=== PATIENT | female | born 1965 | race Caucasian/White ===

== ENCOUNTER 2019-08-22 19:59 | Emergency (ER) | payer BC, SELFPAY ==
--- NOTE | ~2019-08-22 | XR_ITS ---
EXAMINATION: XR chest 1V portable EXAM DATE: 08/22/2019 20:58 INDICATION: Shortness of breath, nonproductive cough. Headache for 3 days. History asthma. TECHNIQUE: Portable AP frontal chest x-ray was obtained. There is no prior study for comparison. FINDINGS: The lungs are clear. There are no pleural effusions. Cardiac silhouette is prominent but magnified on this AP technique. There is no pneumothorax suspected. The bones and soft tissues are unremarkable. IMPRESSION: No acute cardiopulmonary findings. Reviewed, dictated and finalized at location A.
[2019-08-22 20:18] VITALS: BP 158/98; PULSE 95; RESP 20; TEMP 36.8; O2SAT 98
--- NOTE | 2019-08-22 20:31 | ED.SOB ---
HPI - SOB/Dyspnea General Chief Complaint: Shortness of Breath/Dyspnea Stated Complaint: sob Time Seen by Provider: 08/22/19 20:09 History of Present Illness HPI Narrative: 53 yo female w/ h/o asthma presents c/o shortness of breath. She reports that she has had a cough for the past 4 days. This progressed to involve dyspnea, pleuritic chest pain, and a temperature elevation up to 100. She was started on antibiotics and steroids yesterday. She had COVID testing done, but not resulted yet. She had a sick coworker last week, they were not tested. Related Data Home Medications Medication Instructions Recorded Confirmed Topamax 300 BID 04/26/19 atorvastatin [Lipitor] 10 mg PO DAILY 04/26/19 04/26/19 montelukast [Singulair] 10 mg PO DAILY 04/26/19 04/26/19 albuterol sulfate [Ventolin HFA] 1 inh INHALATION QID PRN 08/22/19 primidone 100 mg PO HS 08/22/19 Allergies Allergy/AdvReac Type Severity Reaction Status Date / Time Sulfa (Sulfonamide Allergy Severe Anaphylaxis Verified 08/22/19 21:14 Antibiotics) SKIN GLUE Allergy Intermediate BLISTERS Uncoded 08/22/19 21:14 Review of Systems Review of Systems: All systems reviewed & are unremarkable except as noted in HPI and below Constitutional: Constitutional: Reports fever(s) and Reports weakness ENT: Denies sore throat Cardiovascular: Cardiovascular: Reports chest pain Respiratory: Respiratory: Reports chest congestion, Reports cough and Reports dyspnea Gastrointestinal: Gastrointestinal: Reports nausea Genitourinary: Genitourinary: Denies dysuria Neurologic: Reports headache(s) PMFSH Past Medical History Medical History (Updated 08/23/19 @ 00:11 by Tony Duncan MD) Asthma Family History Family History Father Patient's father is Social History Social History Smoking status: Never smoker Alcohol intake: current Exam Const: General: no acute distress, alert and ill appearing acutely Nutritional Appearance: well nourished Orientation/consciousness: patient oriented x3 HENMT: Head: normal to inspection Chest: Chest palpation & inspection: normal inspection of the chest Resp: Effort & Inspection: normal respiratory effort Auscultation: clear to auscultation bilaterally Cardio: Rate: regular rate Rhythm: regular rhythm GI: GI Palp: Yes Soft to palpation and No Tenderness to palpation present (GI) Skin: General skin exam: normal color Neuro: General: patient oriented x3, moves all extremities and CN's II-XI intact bilaterally Speech: normal speech Extrem: General: normal to inspection Course Vital Signs Vital signs: Vital Signs Temperature 36.8 C 08/22/19 20:18 Pulse Rate 95 08/22/19 20:18 Respiratory Rate 20 08/22/19 20:18 Blood Pressure 158/98 H 08/22/19 20:18 Pulse Oximetry 98 08/22/19 20:18 Temperature 36.8 C 08/22/19 20:18 Pulse Rate 72 08/22/19 22:24 Respiratory Rate 20 08/22/19 22:24 Blood Pressure 119/89 08/22/19 22:24 Pulse Oximetry 98 08/22/19 22:24 MDM - SOB/Dyspnea MDM Narrative Medical decision making narrative: Chest x-ray negative. D-dimer, LDH, and CRP normal. Vitalsigns reassuring. Pain improved with toradol. COVID testing already in progress. I will discharge her to continue self quarantine. Medical Records Attestation: I reviewed the patient's medical records. Lab Data Attestation: I reviewed the patient's lab results. Result diagrams: 08/22/19 21:08 08/22/19 21:08 Labs: Lab Results 08/22/19 08/22/19 08/22/19 Range/Units 21:07 21:08 21:08 WBC 7.0 (4.5-10.0) K/mm3 RBC 4.26 (4.2-5.4) M/mm3 Hgb 12.7 (12.0-15.0) g/dL Hct 39.1 (37.0-47.0) % MCV 91.8 (80-100) fl MCH 29.8 (26-34) pg MCHC 32.5 (32-36) g/dl RDW 13.8 (11.5-14.5) % Plt Count 266 (150-375)
--- NOTE | 2019-08-22 20:44 | ECG_ITS ---
Measurements Intervals [place] Rate: 90 P: 50 MT: 147 QRS: 35 QRSD: 101 T: 72 QT: 317 QTc: 389 Interpretive Statements SINUS RHYTHM BASELINE ARTIFACT- I, II, III, AVR, AVL, AVF NORMAL ECG Electronically Signed On 08-23-2019 7:16:11 CDT by Agustin Gutierrez D.O.
[2019-08-22 21:11] VITALS: PULSE 93
[2019-08-22 21:12] VITALS: O2SAT 99
[2019-08-22 21:14] LABS: Basophils Absolute Auto 0.1 K/mm3 (0.0-0.1); Basophils Percent Auto 0.7 % (0.2-1.2); Eosinophils Absolute Auto 0.2 K/mm3 (0-0.3); Eosinophils Percent Auto 2.6 % (0-4.4); Hematocrit 39.1 % (37.0-47.0); Hemoglobin 12.7 g/dL (12.0-15.0); Immature Granulocyte Absolute 0.02 K/mm3 (0.00-0.031); Immature Granulocyte Percent A 0.3 % (0-0.5); Lymphocytes Absolute Auto 2.33 K/mm3 (0.9-3.2); Lymphocytes Percent Auto 33.1 % (18.3-44.2); Mean Corpuscular HGB Conc 32.5 g/dl (32-36); Mean Corpuscular Hemoglobin 29.8 pg (26-34); Mean Corpuscular Volume 91.8 fl (80-100); Mean Platelet Volume 9.5 fl (7.4-10.4); Monocytes Absolute Auto 0.5 K/mm3 (0.1-0.6); Neutrophils Percent Auto 56.3 % (45.5-73.1); Platelet Count Result 266 k/mm3 (150-375); Red Blood Count 4.26 M/mm3 (4.2-5.4); Red Cell Distribution Width 13.8 % (11.5-14.5)
[2019-08-22 21:24] LABS: Lactic Acid Reflex 1.5 mmol/L (0.7-2.1)
[2019-08-22 21:24] LABS: INR 0.9; Prothrombin Time 11.9 Seconds (11.1-14.7)
[2019-08-22 21:28] LABS: Alanine Aminotransferase 21 U/L (4-35); Albumin Level 4.2 g/dL (3.5-5.1); Alkaline Phosphatase 53 U/L (38-126); Aspartate Amino Transferase 21 U/L (14-36); Bilirubin,Total 0.2 mg/dL (0.2-1.3); Blood Urea Nitrogen 13 mg/dL (7-17); CRP < 0.5 mg/dL (<1.0); Calcium 8.9 mg/dL (8.4-10.2); Carbon Dioxide 20 mmol/L (22-30); Chloride 110 mmol/L (98-107); Estimated Glomerular Filt Rate > 60; Glucose 111 mg/dL (65-105); Lactate Dehydrogenase 319 U/L (313-618); Potassium 3.4 mmol/L (3.4-5.0); Sodium 138 mmol/L (137-145)
[2019-08-22 21:39] VITALS: BP 116/82; PULSE 79; RESP 16; O2SAT 97
[2019-08-22] MEDS: KETOROLAC 30 MG/ML VIAL (*BKC) IV PUSH (21:41)
[2019-08-22] MEDS: ONDANSETRON INJ 4 MG/2 ML VIAL IV PUSH (21:42)
[2019-08-22 21:46] LABS: D Dimer 0.27 ug/mL (<0.48)
[2019-08-22 22:24] VITALS: BP 119/89; PULSE 72; RESP 20; O2SAT 98
== END 2019-08-22 22:37 | disposition home or self-care (01) ==
PROVIDERS: Emergency Provider Emergency Medicine; PCP Emergency Medicine
DX: J20.9 Acute bronchitis, unspecified (principal)
CPT/HCPCS: 36415; 71045; 80053; 83605; 83615; 85025; 85380; 85610; 85730; 86140; 87040; 87804; 93005; 96374; 96375; 99284; J1885; J2405

== ENCOUNTER → 2020-06-12 14:26 | Outpatient (CLI) | payer BC, SELFPAY ==
--- NOTE | ~2020-06-12 | MR_ITS ---
EXAMINATION: MR cervical spine wo con DATE: 06/12/2020 15:18 INDICATION: Right-sided cervical radiculopathy. Neck pain. Right arm pain. TECHNIQUE: Magnetic resonance imaging (MRI) of the cervical spine was performed without intravenous c ontrast. Sequences included sagittal T2-weighted FSE, sagittal STIR FSE, sagittal T1-weighted FSE, ax ial MERGE, and axial T2-weighted FSE. COMPARISON: Cervical spine MRI 06/23/2018 FINDINGS: There is hypolordosis of cervical spine. Vertebral body heights and intervertebral disc hei ghts are normal. The spinal cord signal intensity is normal. The following disc levels are specifical ly discussed: C2-C3: The disc does not extend beyond the endplate margin. There is no uncovertebral joint osteoarth ritis. There is mild bilateral facet joint osteoarthritis. There is no neural foraminal stenosis. The re is no central canal stenosis. C3-C4: The disc does not extend beyond the endplate margin. There is no uncovertebral joint osteoarth ritis. There is mild right and moderate left facet joint osteoarthritis. There is mild left neural fo raminal stenosis. There is no central canal stenosis. C4-C5: The disc does not extend beyond the endplate margin. There is no uncovertebral joint osteoarth ritis. There is no facet joint osteoarthritis. There is no neural foraminal stenosis. There is no roberto carlos tral canal stenosis. C5-C6: There is a central protrusion. There is no uncovertebral joint osteoarthritis. There is mild b ilateral facet joint osteoarthritis. There is no neural foraminal stenosis. There is mild central can al stenosis. C6-C7: The disc is bulging. There is mild bilateral uncovertebral joint osteoarthritis. There is no f acet joint osteoarthritis. There is mild left neural foraminal stenosis. There is mild central canal stenosis. C7-T1: The disc does not extend beyond the endplate margin. There is no uncovertebral joint osteoarth ritis. There is mild bilateral facet joint osteoarthritis. There is no neural foraminal stenosis. The re is no central canal stenosis. IMPRESSION: 1. Mild cervical spondylosis, stable from 06/23/2018. Reviewed, dictated and finalized at location A. E REPAIRMAN
== END ==
PROVIDERS: PCP Emergency Medicine
DX: M25.511 Pain in right shoulder (principal); M47.22 Other spondylosis with radiculopathy, cervical region
CPT/HCPCS: 72141

== ENCOUNTER → 2020-07-10 09:42 | Outpatient (CLI) | payer BC, SELFPAY ==
--- NOTE | ~2020-07-10 | MR_ITS ---
EXAMINATION: MR shoulder RT wo con DATE: 07/10/2020 10:23 INDICATION: Right shoulder pain. TECHNIQUE: Magnetic resonance imaging (MRI) of the right shoulder was performed without intravenous c ontrast. Sequences included axial PD-weighted FS FSE, coronal oblique PD-weighted FS FSE and T2-weigh marty FS FSE, and sagittal oblique T2-weighted FS FSE and T1-weighted FSE. COMPARISON: None. FINDINGS: Coracoacromial arch: The acromion undersurface is curved in morphology (type II). There is mild acromioclavicular joint os teoarthritis. There is mild subacromial/subdeltoid bursitis. Rotator cuff: There is moderate supraspinatus and infraspinatus tendinopathy. There is severe teres minor tendinopa thy. There is moderate subscapularis tendinopathy. No tear. There is no asymmetric fatty atrophy of t he rotator cuff muscle bellies. Biceps tendon and glenoid labrum: Biceps tendon is in bicipital groove. There is mild intra-articular biceps tendinopathy. Glenoid labr um is normal. Fluid: There is no glenohumeral joint effusion. Bones/cartilage: There is cartilage surface irregularity of glenoid and humeral head. IMPRESSION: 1. Severe rotator cuff tendinopathy. No tear. 2. Mild glenohumeral joint chondrosis. 3. Mild intra-articular biceps tendinopathy. 4. Mild acromioclavicular joint osteoarthritis. 5. Mild subacromial/subdeltoid bursitis. Reviewed, dictated and finalized at location A. OTION SPECIALIST
== END ==
PROVIDERS: PCP Emergency Medicine
DX: M19.011 Primary osteoarthritis, right shoulder (principal); M75.51 Bursitis of right shoulder
CPT/HCPCS: 73221

== ENCOUNTER → 2020-08-19 03:21 | Outpatient (CLI) | payer BC, SELFPAY ==
[2020-08-19 20:31] LABS: SARS-CoV-2 RNA PCR Negative
== END ==
PROVIDERS: PCP Emergency Medicine; Visit Provider Internal Medicine Gastroenterology
DX: Z01.812 Encounter for preprocedural laboratory examination (principal); Z20.822 Contact with and (suspected) exposure to COVID-19
CPT/HCPCS: C9803; U0003; U0005

== ENCOUNTER 2020-08-22 01:03 | Day surgery (SDC) | payer BC, SELFPAY ==
[2020-08-13 11:47] VITALS: BMI 27.2
[2020-08-22 07:26] VITALS: BP 117/84; PULSE 110; RESP 16; TEMP 37.7; O2SAT 96; BMI 26.6
[2020-08-22] MEDS: LACTATED RINGERS 1,000 ML 150 ML IV CONT (07:42)
--- NOTE | 2020-08-22 07:51 | WPDANESEPPF ---
Anes - Initial Pre Proc Eval Procedure: Operation Date: 08/22/20 08:30 Proposed Procedures p Screening Colonoscopy - Rolando Rollins MD Date/Time: 08/22/20 07:51 Surgeon: Rolando Rollins MD Pre Op Diagnosis: neoplasm screening Patient Data Age: 54 Gender: F Height: 5 ft 4 in Weight: 70.3 kg Last Vital Signs Temp 99.9 F H 08/22/20 07:26 Pulse 110 H 08/22/20 07:26 Resp 16 08/22/20 07:26 BP 117/84 08/22/20 07:26 Pulse Ox 96 08/22/20 07:26 Allergies Allergy/AdvReac Type Severity Reaction Status Date / Time Sulfa (Sulfonamide Allergy Severe Anaphylaxis Verified 08/22/20 07:24 Antibiotics) SKIN GLUE Allergy Intermediate BLISTERS Uncoded 08/22/20 07:24 Home Medications Medication Instructions Recorded Confirmed Type Topamax 300 mg PO BID 04/26/19 08/22/20 History atorvastatin [Lipitor] 10 mg PO DAILY 04/26/19 08/22/20 History codeine-guaifenesin [Virtussin AC] 5 ml PO Q6H PRN #120 ml 04/26/19 08/22/20 Rx montelukast [Singulair] 10 mg PO DAILY 04/26/19 08/22/20 History albuterol sulfate [Ventolin HFA] 1 inh INHALATION QID PRN 08/22/19 08/22/20 History naproxen 500 mg PO BID PRN #20 tablet 08/22/19 08/22/20 Rx primidone 100 mg PO HS 08/22/19 08/22/20 History hydrocodone 5 mg-acetaminophen 325 1 tablet PO .Q8-12H PRN #30 tablet 08/12/20 08/22/20 Rx mg tablet acetaminophen 100 mg PO Q6H PRN 08/13/20 08/13/20 History Patient hx anesthesia problems: none Family hx anesthesia problems: none PMFSH Past Medical History Medical History (Updated 08/22/20 @ 07:50 by Gilmer Lopez MD) Anxiety Asthma Migraine Family History Family History Father Patient's father is Social History Social History Smoking status: Never smoker Alcohol intake: current Alcohol use details: RARELY Substance use: never Substance use type: does not use Living arrangements: with family Gender identity (if verbalized by the patient): Female Spiritual care concerns: No Anes - Eval Final PreProcedure Day of Procedure 08/22/20 07:51 Patient weight: overweight Heart: regular rate and rhythm Lungs: clear to auscultation Airway: Mallampati scale class II Neurological: alert and oriented Last oral intake: >/= 8 hours ASA classification: II Emergent: no Anesthetic plan: proceed Anesthesia type and monitoring: general GIVS and standard monitoring Informed Consent: The patient's anesthetic plan and its attendant risks and benefits were discussed with the patient/family/POA. Questions were solicited and answers provided to the satisfaction of the patient/family/POA.
--- NOTE | 2020-08-22 08:18 | PM.HPGS ---
History of Present Illness History of Present Illness Consent: Risks, benefits, and alternatives have been discussed and questions answered. Patient agrees to proceed with procedure. Chief complaint: neoplasm screening Narrative: Ivis Szymanski is a 54 year old female with colon polyp in 2014 Review of Systems Constitutional: Constitutional: Denies headache(s) and Denies weakness Eyes: Eyes: Denies blurry vision ENT: Reports Normal hearing present, Denies headache(s) and Denies neck pain Cardiovascular: Cardiovascular: Denies chest pain and Denies dyspnea Respiratory: Respiratory: Denies dyspnea Gastrointestinal: Gastrointestinal: Reports no additional gastrointestinal complaints Genitourinary: Genitourinary: Denies dysuria Musculoskeletal: Musculoskeletal: Denies neck pain Integumentary/Breasts: Skin/Breast: Denies dry skin Neurologic: Reports Normal hearing present, Denies headache(s) and Denies weakness Psychiatric: Psychiatric: Denies anxiety Endocrine: Endocrine: Denies change in body appearance Hematologic/Lymphatic: Hematologic/Lymphatic: Denies easy bleeding Allergic/Immunologic: Allergic/Immunologic: Denies urticaria PMF Past Medical History Medical History (Updated 08/22/20 @ 08:18 by Rolando Rollins MD) Anxiety Asthma Colon polyp Migraine Family History Family History Father Patient's father is Social History Social History Smoking status: Never smoker Alcohol intake: current Alcohol use details: RARELY Substance use: never Substance use type: does not use Living arrangements: with family Gender identity (if verbalized by the patient): Female Spiritual care concerns: No Meds Home Medications and Allergies Home Medications Medication Instructions Recorded Confirmed Type Topamax 300 mg PO BID 04/26/19 08/22/20 History atorvastatin [Lipitor] 10 mg PO DAILY 04/26/19 08/22/20 History codeine-guaifenesin [Virtussin AC] 5 ml PO Q6H PRN #120 ml 04/26/19 08/22/20 Rx montelukast [Singulair] 10 mg PO DAILY 04/26/19 08/22/20 History albuterol sulfate [Ventolin HFA] 1 inh INHALATION QID PRN 08/22/19 08/22/20 History naproxen 500 mg PO BID PRN #20 tablet 08/22/19 08/22/20 Rx primidone 100 mg PO HS 08/22/19 08/22/20 History hydrocodone 5 mg-acetaminophen 325 1 tablet PO .Q8-12H PRN #30 tablet 08/12/20 08/22/20 Rx mg tablet acetaminophen 100 mg PO Q6H PRN 08/13/20 08/13/20 History Allergies Allergy/AdvReac Type Severity Reaction Status Date / Time Sulfa (Sulfonamide Allergy Severe Anaphylaxis Verified 08/22/20 07:24 Antibiotics) SKIN GLUE Allergy Intermediate BLISTERS Uncoded 08/22/20 07:24 Vital Signs Vital Signs - 24 hr 08/22/20 07:26 Temperature 99.9 F H Pulse Rate 110 H Respiratory Rate 16 Blood Pressure 117/84 Pulse Oximetry 96 Exam Const: General: comfortable and no acute distress HENMT: General nose exam: Normal nares present Eyes: General: appearance normal, both eyes and all related structures Neck: Neck: no JVD Resp: Auscultation: clear to auscultation bilaterally Cardio: Rate: regular rate Rhythm: regular rhythm GI: Inspection: non-distended GI Palp: Yes Soft to palpation Skin: General skin exam: normal color Neuro: General: gait normal Speech: normal speech Extrem: General: normal to inspection Psych: Mental Status: mental status grossly normal Assessment and Plan Assessment and plan (1) Colon polyp: Code(s): K63.5 - Polyp of colon Status: Acute Assessment and Plan: colonoscopy
[2020-08-22 08:45] VITALS: BP 125/75; PULSE 93; RESP 19; O2SAT 100
[2020-08-22 08:55] VITALS: BP 113/73; PULSE 85; RESP 14; O2SAT 100
[2020-08-22 09:05] VITALS: BP 118/74; PULSE 78; RESP 10; O2SAT 100
== END 2020-08-22 09:21 | disposition home or self-care (01) ==
PROVIDERS: PCP Emergency Medicine; Visit Provider Internal Medicine Gastroenterology
PROC: 0DJD8ZZ Inspection of Lower Intestinal Tract, Via Natural or Artificial Opening Endoscopic (ICD-10-PCS; CPT 45378; principal; 2020-08-22 08:30)
DX: Z12.11 Encounter for screening for malignant neoplasm of colon (principal); K64.8 Other hemorrhoids; Z86.010 Personal history of colon polyps; J45.909 Unspecified asthma, uncomplicated; Z79.51 Long term (current) use of inhaled steroids
CPT/HCPCS: 45378; C9803; J2704; J7120; U0003; U0005

== ENCOUNTER → 2020-12-11 09:07 | Outpatient (REF) | payer BC, SELFPAY | LOC: ANHLAB 09:07 | PROVIDERS: PCP Emergency Medicine; Visit Provider Nurse Practitioner | DX: L82.1 Other seborrheic keratosis (principal) | CPT/HCPCS: 88305 ==

== ENCOUNTER → 2020-12-15 12:04 | Outpatient (CLI) | payer BC, SELFPAY ==
--- NOTE | ~2020-12-15 | MM_ITS ---
EXAMINATION: MM screening [facility] BI w lora HISTORY: Screening mammogram TECHNIQUE: Craniocaudal and mediolateral oblique 3-D tomosynthesis images were obtained and synthetic 2-D images were generated. CAD analysis was submitted and interpreted. COMPARISON: No prior mammogram is available for comparison at this institution. BREAST PARENCHYMAL COMPOSITION: There are scattered areas of fibroglandular density. FINDINGS: Bilateral intramammary lymph nodes are noted. There is no evidence of suspicious mass, calc ification, or architectural distortion to suggest malignancy in either breast. IMPRESSION: 1. No mammographic evidence of malignancy. 2. Recommend routine screening mammography in one year. BI-RADS Category 2: Benign finding(s). Reviewed, dictated and finalized at location A.
== END ==
PROVIDERS: PCP Emergency Medicine; Visit Provider Obstetrics & Gynecology
DX: Z12.31 Encounter for screening mammogram for malignant neoplasm of breast (principal)
CPT/HCPCS: 77063; 77067

== ENCOUNTER → 2021-04-30 10:28 | Outpatient (CLI) | payer BC, SELFPAY ==
--- NOTE | ~2021-04-30 | XR_ITS ---
EXAMINATION: XR knee RT 2V DATE: 04/30/2021 10:43 INDICATION: Pain in unspecified knee. TECHNIQUE: 2 views of right knee standing were obtained. COMPARISON: None. FINDINGS: Bone alignment is normal. No fracture. There is mild tricompartmental osteoarthritis charac terized by tiny marginal osteophytes. No joint space narrowing. No knee joint effusion. IMPRESSION: 1. Mild right knee osteoarthritis. Reviewed, dictated and finalized at location B. MENTATION SUPERVISOR
--- NOTE | ~2021-04-30 | XR_ITS ---
EXAMINATION: XR knee LT 2V DATE: 04/30/2021 10:43 INDICATION: Pain in unspecified knee. TECHNIQUE: 2 views of left knee standing were obtained. COMPARISON: None. FINDINGS: Bone alignment is normal. No fracture. There is mild tricompartmental osteoarthritis charac terized by tiny marginal osteophytes. No joint space narrowing. No knee joint effusion. IMPRESSION: 1. Mild left knee osteoarthritis. Reviewed, dictated and finalized at location B. CAL SONOGRAPHER
== END ==
PROVIDERS: PCP Emergency Medicine; Visit Provider Emergency Medicine
DX: M17.0 Bilateral primary osteoarthritis of knee (principal)
CPT/HCPCS: 73560

== ENCOUNTER → 2021-12-31 11:51 | Outpatient (CLI) | payer BC, SELFPAY ==
--- NOTE | ~2021-12-31 | MM_ITS ---
EXAMINATION: MM screening [facility] BI w lora HISTORY: Screening mammogram TECHNIQUE: Craniocaudal and mediolateral oblique 3-D tomosynthesis images were obtained and synthetic 2-D images were generated. CAD analysis was submitted and interpreted. COMPARISON: 12/15/2020 BREAST PARENCHYMAL COMPOSITION: There are scattered areas of fibroglandular density. FINDINGS: There is no suspicious mass, calcification, or architectural distortion to suggest malignan cy in either breast. There has been no suspicious interval change. IMPRESSION: 1. No mammographic evidence of malignancy. 2. Recommend routine screening mammography in one year. BI-RADS Category 1: Negative Reviewed, dictated and finalized at location A.
== END ==
PROVIDERS: PCP Obstetrics & Gynecology Gynecology; Visit Provider Emergency Medicine
DX: Z12.31 Encounter for screening mammogram for malignant neoplasm of breast (principal)
CPT/HCPCS: 77063; 77067

== ENCOUNTER 2022-04-14 07:00 | Outpatient (NON) | payer BC, SELFPAY | END 2022-04-14 07:01 | disposition home or self-care (01) | LOC: ANHLAB 04-15 14:47 | PROVIDERS: PCP Emergency Medicine; Visit Provider Nurse Practitioner | DX: D49.2 Neoplasm of unspecified behavior of bone, soft tissue, and skin (principal) | CPT/HCPCS: 88305 ==

== ENCOUNTER → 2023-01-27 11:41 | Outpatient (CLI) | payer BC, SELFPAY ==
--- NOTE | ~2023-01-27 | DEXA_ITS ---
Bone Density Report Name: ARNEL HDZ Age: 57 Sex: Female Ethnicity: White Date of : 1965 Indication: postmenopausal; screening for osteoporosis; asthma or emphysema; Referring Provider: BERNARDO BUTLER Study: Bone densitometry was performed. Exam Date: January 27, 2023 Accession number: [id number] Bone Density: Region BMD T-score Z-score Classification AP Spine (L1-L4) 0.901 -1.3 -0.1 Osteopenia Femoral Neck (Left) 0.829 -0.2 1.0 Normal Total Hip (Left) 0.927 -0.1 0.7 Normal Femoral Neck (Right) 0.820 -0.3 0.9 Normal Total Hip (Right) 0.924 -0.1 0.6 Normal Total Hip Mean 0.926 -0.1 0.7 Normal World Health Organization criteria for BMD impression classify patients as: Normal (T-score at or above -1.0), Osteopenia (T-score between -1.0 and -2.5), or Osteoporosis (T-score at or below -2.5). 10-year Fracture Risk(1): Major Osteoporotic Fracture 5.6% Hip Fracture 0.1% Reported Risk Factors: [place] (), Neck BMD=0.820, BMI=23.7 (1) FRAX(R) Version 3.08. Fracture probability calculated for an untreated patient. Fracture probability may be lower if the patient has received treatment. Clinical Information Provided by Patient: Has used the following medications: HRT (i.e. estrogen/hormone therapy), IUD Has the following medical conditions: Asthma or Emphysema Patient maximum height was 65 Menopause Age: 54 Does not regularly consume dairy products Drinks caffeinated beverages Onset of menses at age 13 Number of children 2 Missed period for more than 6 months in a row Impression: The patient has low bone mass, based on the Total Spine T-score. The patient has an estimated ten-year risk of hip fracture of 0.1% and an estimated ten-year risk of major fracture of 5.6%, based on the WHO FRAX algorithm. Discussion: BONE DENSITY IS LOW AT ONE OR MORE SKELETAL SITES. This patient's lowest T-score is low at one or more skeletal sites. It meets the World Health Organization's (WHO) criteria for ?low bone mass? (T-score between -1.0 and -2.5). The patient's 10-year risk of fracture as calculated by FRAX is less than the threshold where pharmacological therapy is recommended by the National Osteoporosis Foundation (NOF). However, all treatment decisions require clinical judgment and consideration of individual patient factors, including patient preferences, comorbidities, previous drug use, risk factors not captured in the FRAX model (e.g., frailty, falls, vitamin D deficiency, increased bone turnover, interval significant decline in bone density) and possible under or overestimation of fracture risk by FRAX. The patient should follow a healthful lifestyle (good nutrition with adequate calcium and vitamin D, and appropriate weight-bearing exercise). Follow-Up: Consider repeating thi
== END ==
PROVIDERS: PCP Emergency Medicine; Visit Provider Obstetrics & Gynecology Gynecology
DX: Z78.0 Asymptomatic menopausal state (principal); M85.88 Other specified disorders of bone density and structure, other site
CPT/HCPCS: 77080

== ENCOUNTER → 2023-03-09 13:59 | Outpatient (CLI) | payer BC, SELFPAY ==
--- NOTE | ~2023-03-09 | MM_ITS ---
EXAMINATION: MM screening [facility] BI w lora HISTORY: Screening TECHNIQUE: Craniocaudal and mediolateral oblique 3-D tomosynthesis images were obtained and synthetic 2-D images were generated. CAD analysis was submitted and interpreted. COMPARISON: Comparison to multiple prior studies sequentially, with oldest reviewed study dated 12/15. BREAST PARENCHYMAL COMPOSITION: There are scattered areas of fibroglandular density. FINDINGS: There is no evidence of suspicious mass, calcification, or architectural distortion to sugg est malignancy in either breast. There has been no suspicious interval change. IMPRESSION: 1. No mammographic evidence of malignancy. 2. Recommend routine screening mammography in one year. BI-RADS Category 1: Negative Reviewed, dictated and finalized at location A. AD SALES WEST
== END ==
PROVIDERS: PCP Obstetrics & Gynecology Gynecology; Visit Provider Emergency Medicine
DX: Z12.31 Encounter for screening mammogram for malignant neoplasm of breast (principal)
CPT/HCPCS: 77063; 77067

== ENCOUNTER 2023-07-22 08:55 | Emergency (ER) | payer BC, SELFPAY ==
[2023-07-22 09:05] VITALS: BP 91/77; PULSE 89; RESP 16; TEMP 36.8; O2SAT 99
[2023-07-22 09:07] VITALS: BP 91/77; PULSE 89; RESP 16; TEMP 36.8; O2SAT 99
--- NOTE | 2023-07-22 09:07 | ED.EAR ---
HPI - Ear Problem General Chief complaint: Ear Stated complaint: Diarrhea;Ear Pain Time Seen by Provider: 07/22/23 09:39 Source: patient and RN notes reviewed Mode of arrival: ambulatory Limitations: no limitations History of Present Illness HPI Narrative: 57-year-old female presents with multiple complaints. She reports persistent diarrhea for 6 days. She reports started after she ate Sharon stew on Tuesday. Reports she had many episodes of diarrhea. Reports she is unable to eat any food without it causing diarrhea. She reports she has been drinking water and Sprite. She reports a normal amount of urination. She denies fever, body aches, chills, sweats. She also reports left ear pain and sinus congestion. She took Imodium once for diarrhea. Denies other [id number] intervention MD Complaint: ear pain Related Data Home Medications Medication Instructions Recorded Confirmed montelukast 10 mg tablet 10 mg PO DAILY 04/26/19 07/22/23 (Singulair) atorvastatin 10 mg tablet (Lipitor) 20 mg PO DAILY 12/09/20 07/22/23 albuterol sulfate 90 mcg/actuation 1 puff inhalation Q4H PRN Wheezing 03/22/22 07/22/23 aerosol inhaler levocetirizine 5 mg tablet (Xyzal) 5 mg PO DAILY 03/22/22 07/22/23 gabapentin 600 mg tablet 600 mg PO BID 07/22/23 07/22/23 primidone 50 mg tablet 200 mg PO DAILY 07/22/23 07/22/23 Allergies Allergy/AdvReac Type Severity Reaction Status Date / Time Sulfa (Sulfonamide Allergy Severe Anaphylaxis Verified 07/22/23 09:05 Antibiotics) SKIN GLUE Allergy Intermediate BLISTERS Uncoded 07/22/23 09:05 Review of Systems Review of Systems: CONSTITUTIONAL: Denies malaise, chills, sweats, or fever. EYES: Denies visual changes, redness, or discharge. ENT: Denies rhinorrhea, congestion, sinus pain, and sore throat. Reports left ear pain CARDIOVASCULAR: Denies chest pain, palpitations, or edema. RESPIRATORY: Denies cough. Denies dyspnea. GASTROINTESTINAL: Denies abdominal pain, nausea, vomiting. Reports persistent diarrhea SKIN: Denies rash or itching. MUSCULOSKELETAL: Denies myalgia. NEUROLOGIC: Denies headache. All systems reviewed & are unremarkable except as noted in HPI and below PMFSH Past Medical History Medical History Anxiety Asthma Colon polyp History of breast implant removal 10/2020 Migraine Surgical History Surgical History History of breast augmentation 12/2006 History of rotator cuff surgery Family History Family History Father Patient's father is Social History Social History Smoking status: Never smoker Alcohol intake: current Alcohol use details: RARELY Substance use: never Substance use type: does not use Lack of Transportation: No Lack of Food: Never True Current Housing: I Have Housing Concerned About Future Housing: No Difficulty Paying Gas/Electric Bills: No Difficulty Paying for Meds: No Currently Unemployed: No Education: Associate Degree Difficulty w/ Childcare or Family Care: No Living arrangements: with family Gender identity (if verbalized by the patient): Female Spiritual care concerns: No Comments At time of signature, agree with nursing past medical, surgical, social and family history. There is no relevant family history pertinent to the presenting complaint Exam Narrative: GENERAL: Well-appearing, well-nourished, and in no acute distress. HEAD: Normocephalic EYES: PERRLA, conjunctivae clear ENT: Nares clear, turbinates edematous, clear discharge. Mucous membranes moist. TM pearly gibson with dull light reflex on the left sharp on the right; no tragal tenderness. Oropharynx not erythematous without lesions. Tonsils not enlarged and without exudate, no drooling, no angela
== END 2023-07-22 09:52 | disposition home or self-care (01) ==
PROVIDERS: Emergency Provider Nurse Practitioner; PCP Emergency Medicine
DX: A09 Infectious gastroenteritis and colitis, unspecified (principal); H92.02 Otalgia, left ear; J45.909 Unspecified asthma, uncomplicated
CPT/HCPCS: 87804; 99213; G0463

== ENCOUNTER 2024-03-07 10:18 | Emergency (ER) | payer OTHER, SELFPAY ==
[2024-03-07] VITALS (10 sets, daily range): BP systolic 103–118; BP diastolic 70–80; PULSE 65–79; RESP 10–18; TEMP 37.1; O2SAT 96–100
[2024-03-07] MEDS: METOCLOPRAMIDE HCL INJ 10 MG/2 ML VIAL IM (11:13)
--- NOTE | 2024-03-07 11:52 | ED.HA ---
HPI - Headache General Chief Complaint: Headache Stated Complaint: migraine Time Seen by Provider: 03/07/24 11:06 History of Present Illness HPI Narrative: Patient was been diagnosed with a brain tumor, has seen an ear surgeon and has follow-up in May, with potential planned procedure, has been having ongoing a migraine for months as well as tremors and stutters. Has not been able to finally to the migraines go away. Photophobia and nausea Associated. Related Data Home Medications Medication Instructions Recorded Confirmed montelukast 10 mg tablet 10 mg PO DAILY 04/26/19 09/21/23 (Singulair) atorvastatin 10 mg tablet (Lipitor) 20 mg PO DAILY 12/09/20 09/21/23 albuterol sulfate 90 mcg/actuation 1 puff inhalation Q4H PRN Wheezing 03/22/22 09/21/23 aerosol inhaler levocetirizine 5 mg tablet (Xyzal) 5 mg PO DAILY 03/22/22 09/21/23 gabapentin 600 mg tablet 600 mg PO BID 07/22/23 09/21/23 primidone 50 mg tablet 200 mg PO DAILY 07/22/23 09/21/23 Allergies Allergy/AdvReac Type Severity Reaction Status Date / Time Sulfa (Sulfonamide Allergy Severe Anaphylaxis Verified 03/07/24 10:19 Antibiotics) SKIN GLUE Allergy Intermediate BLISTERS Uncoded 03/07/24 10:19 Review of Systems Review of Systems: All systems reviewed & are unremarkable except as noted in HPI and below PMFSH Past Medical History Medical History Anxiety Asthma Colon polyp History of breast implant removal 10/2020 Migraine Surgical History Surgical History History of breast augmentation 12/2006 History of rotator cuff surgery Family History Family History Father Patient's father is Social History Social History Smoking status: Never smoker Alcohol intake: current Alcohol use details: RARELY Substance use: never Substance use type: does not use Lack of Transportation: No Lack of Food: Never True Current Housing: I Have Housing Concerned About Future Housing: No Difficulty Paying Gas/Electric Bills: No Difficulty Paying for Meds: No Currently Unemployed: No Education: Associate Degree Difficulty w/ Childcare or Family Care: No Living arrangements: with family Gender identity (if verbalized by the patient): Female Spiritual care concerns: No Exam Narrative: EXAMINATION OF ORGAN SYSTEMS/BODY AREAS: Constitutional: Vital signs per nursing GENERAL: appearing uncomfortable HEAD: Normal with no signs of head trauma. EYES: EOMI ENT: Hearing grossly intact LUNGS: Nonlabored breathing. HEART: [Regular rate and rhythm] ABD: [Soft], [nontender to palpation] EXT: Normal range of motion SKIN: [No rashes or lesions.] NEURO: [Alert and oriented x 3. tremors and stutters.] PSYCH: Normal affect Course Vital Signs Vital signs: Vital Signs Temperature 98.8 F 03/07/24 10:45 Pulse Rate 79 03/07/24 10:45 Respiratory Rate 18 03/07/24 10:45 Blood Pressure 118/72 03/07/24 10:45 Pulse Oximetry 97 03/07/24 10:45 Oxygen Delivery Room Air 03/07/24 10:45 Temperature 98.8 F 03/07/24 10:45 Pulse Rate 75 03/07/24 11:17 Respiratory Rate 14 03/07/24 11:17 Blood Pressure 116/80 03/07/24 11:17 Pulse Oximetry 100 03/07/24 11:17 Oxygen Delivery Room Air 03/07/24 10:45 MDM - Headache MDM Narrative Medical decision making narrative: 58F presents to the emergency department for headache. Patient is hemodynamically stable. She has chronic your lobe deficits including stutter and tremors.. No meningeal signs. The headache was gradual in onset, it is not exertional and does not appear consistent with subarachnoid hemorrhage or intracranial bleeding. No trauma. Patient is given Reglan. On reevaluation, the patient feels significantly better; still has the smallest bit left and would like a 2nd dose so a small dose of Haldol ordered. No new neurologic deficits. Patient is comfortable going home for outpatient follow-up with primary care physician and/or neurology and provided with strict return precautions, especially for worsening headaches, neck pain/stiffness, fever or weakness, New numbness/tingling or persistent vomiting. I will give her a prescription of Imitrex in case her migraine returns, she has taken that in the past with good results. Patient and family at bedside agree with plan. Discharge Plan Discharge Clinical Impression: Migraine Patient Disposition: Home, Self-Care Condition: Stable Instructions: Migraine Headache (ED) Additional Instructions: Please follow-up with the neurosurgeon as scheduled and with Neurology. He you can always return to the emergency room if things worsen. Prescriptions: New sumatriptan 20 mg/actuation spray,non-aerosol 20 mg intranasal Q2H PRN (Reason: migraine headache) Qty: 6 0RF Rx Instructions: administer into one nostril as a single dose; if 2nd dose needed,administer into other nostril after at least 2 hrs, NTE 2 doses (40 mg) per episode No Action montelukast [Singulair] 10 mg Tablet 10 mg PO DAILY atorvastatin [Lipitor] 10 mg tablet 20 mg PO DAILY primidone 50 mg tablet 200 mg PO DAILY gabapentin 600 mg tablet 600 mg PO BID azithromycin [Zithromax Z-Tam] 250 mg tablet See Rx Instructions .ROUTE .COMPLEX Qty: 6 0RF Rx Instructions: take 500 mg today (day 1), then 250 mg for 4 days (days 2-5) levocetirizine [Xyzal] 5 mg tablet 5 mg PO DAILY albuterol sulfate 90 mcg/actuation HFA aerosol inhaler 1 puff inhalation Q4H PRN (Reason: Wheezing) metoprolol succinate 25 mg tablet extended release 24 hr 25 mg PO DAILY Qty: 90 2RF topiramate 200 mg tablet See Rx Instructions .ROUTE .COMPLEX Qty: 270 3RF Dose Instruction: TAKE ONE AND ONE-HALF TABLETS TWICE A DAY Rx Instructions: TAKE ONE AND ONE-HALF TABLETS TWICE A DAY Follow-up/Referrals: Landon Aranda MD [Primary Care Provider] - Otis Cruz MD [Physician] - 2 Days
[2024-03-07] MEDS: dexAMETHasone 2 MG TABLET 10 MG PO (11:54)
[2024-03-07] MEDS: HALOPERIDOL LACTATE 5 MG/ML VIAL 2.5 MG IM (12:54)
== END 2024-03-07 13:11 | disposition home or self-care (01) ==
PROVIDERS: Emergency Provider Emergency Medicine; PCP Emergency Medicine
DX: G43.909 Migraine, unspecified, not intractable, without status migrainosus (principal)
CPT/HCPCS: 96372; 99284; J1630; J2765; J8540

== ENCOUNTER 2024-03-21 15:50 | Outpatient (CLI) | payer OTHER, SELFPAY ==
--- NOTE | ~2024-03-21 | MM_ITS ---
EXAMINATION: MM screening [facility] BI w lora HISTORY: Screening mammogram TECHNIQUE: Craniocaudal and mediolateral oblique 3-D tomosynthesis images were obtained and synthetic 2-D images were generated. CAD analysis was submitted and interpreted. COMPARISON: 03/21/2023, 12/31/2021, 12/15/2020 BREAST PARENCHYMAL COMPOSITION:Not Dense. There are scattered areas of fibroglandular density. FINDINGS: No suspicious mass, calcification, or architectural distortion are identified in either patricia ast to suggest malignancy. There has been no suspicious interval change. IMPRESSION: No mammographic evidence of malignancy. Recommend routine screening mammography in one year. BI-RADS Category 1: Negative Reviewed, dictated and finalized at location . RNAL GRINDER TENDER
== END 2024-03-21 15:51 | disposition home or self-care (01) ==
LOC: ANHIMG 15:55
PROVIDERS: PCP Emergency Medicine; Visit Provider Obstetrics & Gynecology Gynecology
DX: Z12.31 Encounter for screening mammogram for malignant neoplasm of breast (principal)
CPT/HCPCS: 77063; 77067

== ENCOUNTER 2024-06-29 13:15 | Emergency (ER) | payer OTHER, SELFPAY ==
[2024-06-29] VITALS (15 sets, daily range): BP systolic 111–138; BP diastolic 71–90; PULSE 78–100; RESP 18–20; TEMP 36.4; O2SAT 96–100
[2024-06-29] MEDS: ACETAMINOPHEN 500 MG TABLET 1000 MG PO (15:18)
[2024-06-29] MEDS: diphenhydrAMINE HCl INJ 50 MG/ML VIAL 25 MG IV PUSH (15:20)
[2024-06-29] MEDS: METOCLOPRAMIDE HCL INJ 10 MG/2 ML VIAL IV PUSH (15:20)
[2024-06-29] MEDS: SODIUM CHLORIDE 0.9% IV 1,000 ML 999 ML IV CONT (15:20)
--- NOTE | 2024-06-29 15:20 | ED.HA ---
HPI - Headache General Chief Complaint: Headache Stated Complaint: migraine Time Seen by Provider: 06/29/24 14:16 Source: patient Mode of arrival: ambulatory Limitations: no limitations History of Present Illness HPI Narrative: this is a 50-year-old female that presents to the emergency department for a migraine headache. Reports this has been present over the last 6 months. She does see a neurologist for her headaches, but her neurologist recently retired. She is attempting to get into a new doctor. Reports her headache has been worsening over the last couple of days which prompted her to be seen. She was seen here in March for headache and had an injection that helped her a lot. Related Data Home Medications ?Medication ?Instructions ?Recorded ?Confirmed ?Last Taken ?Type montelukast 10 mg tablet 10 mg PO DAILY 04/26/19 04/04/24 08/21/20 History (Singulair) atorvastatin 10 mg tablet (Lipitor) 20 mg PO DAILY 12/09/20 04/04/24 Unknown History albuterol sulfate 90 mcg/actuation 1 puff inhalation Q4H PRN Wheezing 03/22/22 04/04/24 Unknown History aerosol inhaler levocetirizine 5 mg tablet (Xyzal) 5 mg PO DAILY 03/22/22 04/04/24 Unknown History gabapentin 600 mg tablet 600 mg PO BID 07/22/23 04/04/24 Unknown History primidone 50 mg tablet 200 mg PO DAILY 07/22/23 04/04/24 Unknown History duloxetine 60 mg capsule,delayed 60 mg PO 04/04/24 04/04/24 Unknown History release Allergies Allergy/AdvReac Type Severity Reaction Status Date / Time Sulfa (Sulfonamide Allergy Severe Anaphylaxis Verified 06/29/24 13:16 Antibiotics) SKIN GLUE Allergy Intermediate BLISTERS Uncoded 06/29/24 13:16 Review of Systems Review of Systems: CONSTITUTIONAL: Denies fever EYES: Denies visual changes GASTROINTESTINAL: Reports nausea, vomiting NEUROLOGIC: Reports headache. Denies numbness, or weakness. PSYCHIATRIC: Denies anxiety or depression. All systems reviewed & are unremarkable except as noted in HPI and below PMFSH Past Medical History Medical History Anxiety Asthma Colon polyp History of breast implant removal 10/2020 Migraine Surgical History Surgical History History of breast augmentation 12/2006 History of rotator cuff surgery Family History Family History Father Patient's father is Social History Social History Smoking status: Never smoker Alcohol intake: current Alcohol use details: RARELY Substance use: never Substance use type: does not use Lack of Transportation: No Lack of Food: Never True Current Housing: I Have Housing Concerned About Future Housing: No Difficulty Paying Gas/Electric Bills: No Difficulty Paying for Meds: No Currently Unemployed: No Education: Associate Degree Difficulty w/ Childcare or Family Care: No Living arrangements: with family Gender identity (if verbalized by the patient): Female Spiritual care concerns: No Exam Narrative: GENERAL: Well-appearing, well-nourished, and in no acute distress. HEAD: Normocephalic, atraumatic. EYES: PERRLA and EOMI. ENT: Nares clear, no rhinorrhea or epistaxis. Mucous membranes moist. Oropharynx without tonsillar hypertrophy exudate or other lesions. Bilateral TMs pearly gibson non-bulging NECK: Supple. No adenopathy or masses CHEST: Clear to auscultation. No respiratory distress. No wheezes rales or rhonchi HEART: Regular rate and rhythm. No murmur heard. Normal peripheral pulses. ABDOMEN: Soft, nontender, nondistended, normal active bowel sounds. EXTREMITIES: Normal range of motion. No edema. strength equal in bilateral upper and lower extremities (5/5) SKIN: Warm, dry, no rash. NEURO: No focal deficits. Alert and oriented x3. Cranial nerves 2-12 grossly intact PSYCH: Normal mood and affect Course Course Emergency Course: Patient updated on her workup. Resting comfortably Vital Signs Vital signs: Vital Signs Temperature 97.6 F 06/29/24 13:17 Pulse Rate 100 06/29/24 13:17 Respiratory Rate 18 06/29/24 13:17 Blood Pressure 138/90 06/29/24 13:17 Pulse Oximetry 96 06/29/24 13:17 Oxygen Delivery Room Air 06/29/24 13:17 Temperature 97.6 F 06/29/24 13:17 Pulse Rate 89 06/29/24 17:03 Respiratory Rate 18 06/29/24 17:03 Blood Pressure 123/85 06/29/24 17:03 Pulse Oximetry 99 06/29/24 17:03 Oxygen Delivery Room Air 06/29/24 13:17 MDM - Headache MDM Narrative Medical decision making narrative: Patient presents to the emergency department for chronic headache. CT brain without acute findings. She was given migraine cocktail with improvement. Updated on her workup. Resting comfortably. Instructed to have continued follow-up with neurology. She was given warnings to return to the ER Differential Diagnosis Differential diagnosis: Likely migraine, tension headache, subarachnoid hemorrhage and sinusitis Imaging Data Radiologist's impression: ITS Impressions Head CT 06/29/24 15:16 IMPRESSION: 1. Mild nonspecific cerebral white matter disease, which likely represents chronic small vessel ischemic disease. Critical Care Time Critical Care Time Critical Care Time: No Discharge Plan Discharge Clinical Impression: Chronic headache Qualifiers: Headache type: unspecified Intractability: not intractable Qualified Code(s): R51.9 - Headache, unspecified Patient Disposition: Home, Self-Care Condition: Improved Instructions: General Headache (ED) Additional Instructions: Return to the emergency department if you experience fever, chest pain, shortness of breath, abdominal pain with nausea and vomiting, weakness, numbness, or any other symptoms that are concerning to you. Remain well hydrated. Over the counter pain medication as needed. Metoclopramide as needed for nausea Follow up with neurology Patient Language: Azerbaijani Prescriptions: New metoclopramide HCl 5 mg tablet 5 mg PO Q6H PRN (Reason: nausea and vomiting) Qty: 10 0RF No Action montelukast [Singulair] 10 mg Tablet 10 mg PO DAILY atorvastatin [Lipitor] 10 mg tablet 20 mg PO DAILY primidone 50 mg tablet 200 mg PO DAILY gabapentin 600 mg tablet 600 mg PO BID levocetirizine [Xyzal] 5 mg tablet 5 mg PO DAILY albuterol sulfate 90 mcg/actuation HFA aerosol inhaler 1 puff inhalation Q4H PRN (Reason: Wheezing) duloxetine 60 mg capsule,delayed release(DR/EC) 60 mg PO sumatriptan 20 mg/actuation spray,non-aerosol 20 mg intranasal Q2H PRN (Reason: migraine headache) Qty: 6 0RF Rx Instructions: administer into one nostril as a single dose; if 2nd dose needed,administer into other nostril after at least 2 hrs, NTE 2 doses (40 mg) per episode topiramate 200 mg tablet See Rx Instructions .ROUTE .COMPLEX Qty: 270 3RF Dose Instruction: TAKE ONE AND ONE-HALF TABLETS TWICE A DAY Rx Instructions: TAKE ONE AND ONE-HALF TABLETS TWICE A DAY metoprolol succinate 25 mg tablet extended release 24 hr See Rx Instructions .ROUTE .COMPLEX Qty: 90 2RF Dose Instruction: TAKE 1 TABLET BY MOUTH EVERY DAY Rx Instructions: TAKE 1 TABLET BY MOUTH EVERY DAY Follow-up/Referrals: Landon Aranda MD [Primary Care Provider] - Milind Berry MD [Physician] -
== END 2024-06-29 17:41 | disposition home or self-care (01) ==
PROVIDERS: Emergency Provider Physician Assistant; PCP Emergency Medicine
DX: R51.9 Headache, unspecified (principal); J45.909 Unspecified asthma, uncomplicated; Z86.0100 Personal history of colon polyps, unspecified; R90.82 White matter disease, unspecified
CPT/HCPCS: 70450; 96361; 96374; 96375; 99284; A9270; J1200; J2765; J7030

== ENCOUNTER 2024-12-21 10:13 | Outpatient (CLI) | payer MEDICARE, SELFPAY ==
--- OUTSIDE RECORDS SUMMARY | 2024-03-16 04:45 | XMS_ITS ---
Author Organization [facility] thalia Address [address] [address] [place] [address] Care Team Providers Care Infection Preventionist Name Role Phone Manoj NAYLOR, Landon Primary Care Provider Martha Negron [phone] REASON FOR VISIT yd/3 month follow up/flc Encounters Encounter Location Date Provider Diagnosis [facility] [address] [facility] [address] [place] [address] 03/16/2024 Martha Styles Plan Of Treatment No Information Progress Notes * Lisset SZYMANSKIB:1965 ( 59 yo Other)Acc No.[id number]:03/16/2024 Progress Notes Patient: Ivis SHRESTHA Appointment Provider: Eugenia STYLES MD :1965 A ge:58 Y S ex:Unknown Date:03/16/2024 Address:[address] [place] [address] Pcp:Landon Aranda MD Subjective: * Chief Complaints: * 1 . Yd/3 month follow up/flc. * Medical History: Objective: * Vitals: Assessment: Plan: * Treatment: * Billing Information: * Visit Code: * Procedure Codes: * Electronic signature of Martha Styles MD on 12/21/2024 at 10:18 AM CDT Sign off status: Pending * Appointment Provider: Eugenia STYLES MD Date: 05/16/2023 Generated for Printi ng/Faxing/eTransmitting on: 0 12/21/2024 10:18 AM CDT
--- OUTSIDE RECORDS SUMMARY | 2024-12-21 10:18 | XMS_ITS | Clinical Summary ---
Author Organization [facility] Address [facility] [place] [address] Care Team Providers Care Train Conductor Name Role Phone Landon Aranda MD Primary Care Provider [phone] Allergies Active Allergy Reactions Criticality Noted Date Comments Egg White (Egg Protein) Nausea and Vomiting,Unknown Low 05/09/2019 Sulfa Antibiotics Other (see comment),Swelling,Ra sh High 07/05/2019 Reaction: Unknown, Skin glue causes blisters Tape Unknown 04/01/2015 Medications albuterol sulfate HFA 108 (90 Base) MCG/ACT inhaler TAKE 2 PUFFS BY MOUTH EVERY 4 TO 6 HOURS NEEDED FOR SHORTNESS OF BREATH 1 Active ALPRAZolam 0.5 MG tablet TAKE 1 TABLET BY MOUTH TWICE A DAY NEEDED FOR ANXIETY, AVOID DRIVING OR OPERATING MACHINES 1 Active atorvastatin 20 MG tablet Take 1 tablet (20 mg total) by mouth daily. 1 Active cetirizine 10 MG tablet Take 1 tablet (10 mg total) by mouth. Active HYDROcodone-acetami nophen 5-325 MG tablet Take 1 tablet by mouth every 8 (eight) hours as needed. FOR PAIN 1 Active montelukast 10 MG tablet Take 1 tablet (10 mg total) by mouth every evening. 1 Active primidone 50 MG tablet Take 1 tablet (50 mg total) by mouth 2 (two) times daily. 1 Active Levocetirizine Dihydrochloride (XYZAL) 5 MG Tab Take 1 tablet (5 mg total) by mouth nightly at bedtime. Active NON FORMULARYIndication s:topamax 300 mg orally BID Indications: topamax 300 mg orally BID Active acetaminophen 500 MG tabletIndications:t akes up to 4,000 mg a day as needed. Take 2 tablets (1,000 mg total) by mouth every 6 (six) hours as needed for Pain. Indications: takes up to 4,000 mg a day as needed. Active celecoxib (CELEBREX) 100 MG capsule Take 1 capsule (100 mg total) by mouth daily. Active DULoxetine (CYMBALTA) 60 MG capsule Take 1 capsule (60 mg total) by mouth daily. Active metoprolol succinate ER (TOPROL-XL) 25 MG 24 hr tablet Take 1 tablet (25 mg total) by mouth daily. Active MIMVEY 1-0.5 MG Tab Take 1 tablet by mouth daily. Active erenumab-aooe (AIMOVIG) 140 mg/mL injection (autoinjector)Indic ations:Migraine without aura, not intractable, without status migrainosus Inject 1 mL (140 mg total) into the skin every 30 (thirty) days. 1 mL 5 Active ubrogepant (UBRELVY) 100 MG tabletIndications:M igraine without aura, not intractable, without status migrainosus Take 1 tablet (100 mg total) by mouth 2 (two) times daily as needed. Max of 2 tablets (200 mg) in 24 hours 16 tablet 5 Active pramipexole (MIRAPEX) 0.25 MG tablet Take 1 tablet (0.25 mg total) by mouth daily. Active topiramate (TOPAMAX) 200 MG tablet Take 1 tablet (200 mg total) by mouth every 12 (twelve) hours. Active Active Problems Problem Noted Date Diagnosed Date Chronic migraine w/o aura w/ o status migrainosus, not intractable 07/25/2024 Fibromyalgia 08/11/2023 Osteoarthrosis 08/11/2023 Cervical dystonia 04/08/2023 Breast implant rupture 10/24/2020 Cervical radiculopathy 09/16/2020 Right shoulder pain 06/05/2020 Essential tremor 05/11/2019 Overview (07/25/2024): Last Assessment & Plan: She has a longstanding history of kinetic tremor spanning several decades without a clear family history of ET and no clear benefits with alcohol that was consistent with ET. This has responded very well to primidone and she is tolerating it well without any dose limiting side effects. She has however had recent worsening of her tremor in the setting of recent onset what sounds like a radicular pain. She is currently being treated by an orthopedic surgeon, has had recent MRI C-spine which reportedly showed degenerative changes (I don't see the images/report in our system), she is scheduled for EMG/NCS and should continue to follow up for this. We discussed the options given the recent worsening of her tremor and decided to gradually uptitrate the primidone; strategies and side effects discussed. She has a rather sudden onset (2018) right hand rest tremor that was notable at the initial office visit for clear suggestibility, distractibility, entrainment and constantly varying frequency and amplitude and that including her previously noted gait, consistent with astasia-abasia would make a psychogenic basis for the rest tremor and gait abnormality also feature in the differential. There is only subtle evidence of parkinsonism at this time very commonly seen in the setting of ET; I told her that she does not have PD and the parkinsonism needs to be clinically monitored given the higher incidence of PD in the setting of ET. There has been no subjective worsening of her parkinsonism in the interim. Of note, she has been taking topiramate for migraine (managed by another physician; the dosage is not entirely clear, but she has been taking the same dosage for over a decade). It is possible that this high dosage could be interfering some with her cognition. She should discuss this dosing further with her prescribing physician. This could however also be helping her tremor, (her underlying asthma and prior episodes of bronchitis, history of depression are relative contraindications for propranolol); side effects including drug interactions with centrally acting medications and alcohol and strategies were discussed in detail. Recommendations: 1. Increase primidone as directed; side effects and strategies discussed (script sent). 2. Follow up with orthopedic surgeon as per schedule. 3. continue daily stretching and exercises. This was a telemedicine visit with Ivis ramos which took place via Telephone. During the visit, I was located in my office at [address] [place] [address] and the patient was located at her home in [place]. The session started at 13:06 and ended at 13:29. In addition to the time spent during the session with the patient, I spent 3 minutes preparing to see the patient, 1 minutes ordering medications, tests, or procedures and 5 minutes documenting clinical information in the electronic or other health record on the day of the visit. Total time spend on encounter on the day of the visit: 31 minutes. The patient has been informed that the visit may not be secure and acknowledged the information. It was explained to the patient they have the option of participating in a telephone or video visit during the [facility] [place] [address] emergency. After being given an opportunity to ask questions about and discuss this type of visit, the patient verbally consented to proceeding with the telephone / video visit. The patient understands that this service replaces an office visit and they may be billed and/or responsible for any applicable copayments. Greater than 50% of any time I spent on the call/video was spent in counseling and/or coordination of care as documented in the note. Impaired cognition 05/11/2019 Abnormal weight gain 07/03/2014 Depressive disorder 07/03/2014 Hyperlipidemia 06/05/2014 Vitamin D deficiency 06/05/2014 Cellulitis and abscess of buttock 10/29/2013 Neck pain 05/30/2013 Headache 02/19/2013 Encounters Date Type Department Care Team Description 12/04/2024 10:00 AM CDT [facility] [address] [facility], [address] [place] [address] Angie Barnhart MD Botox Procedure (Migraines ) 12/04/2024 Scan HEALTH INFO SRVCS Scanned, [facility] 12/04/2024 Travel 11/06/2024 9:40 AM CDT [facility] [address], [address] [place] [address] Angie Barnhart MD Follow Up 11/06/2024 Travel 10/18/2024 Misc [facility]ation [facility] [address] [facility], [address] [place] [phone] Angie Barnhart MD 10/02/2024 Telephone [facility] - [address], [address] [place] [phone] Angie Barnhart MD Prior Authorization ([employer]) 10/01/2024 [facility]phone [facility] [address] [facility], [address] [place] [phone] Angie Barnhart MD Medication Problem from Last 3 Months Family History Medical History Relation Comments Early Father Alzheimers Maternal Grandmother Relation Status Comments Father (Age 20) cerebral aneur ysm Maternal Grandmother Social History Tobacco Use Types Packs/Day Years Used Date Smoking Tobacco: Never Passive Smoke Exposure: Never Smokeless Tobacco: Never Tobacco Cessation:Counseling Given: No Alcohol Use Standard Drinks/Week Comments Yes 1 (1 standard drink = 0.6 oz pur e alcohol) PHQ-2 Answer Date Recorded Patient Health Questionnaire-2 Score 0 11/06/2024 Education Answer Date Recorded What is the highest level of school you have completed or the highest degree you have received? Associate degree: academic program 09/16/2020 Comments No Sex and Gender Information Value Date Recorded Sex Assigned at Not on file Legal Sex Female 8:46 AM CDT Gender Identity Not on file Sexual Orientation Not on file Last Filed Vital Signs Vital Sign Reading Time Taken Comments Blood Pressure 109/73 12/04/2024 10:19 AM CDT Pulse 80 12/04/2024 10:19 AM CDT Temperature 36.3 C (97.3 F) 12/04/2024 10:19 AM CDT Respiratory Rate 20 11/24/2020 2:44 PM CDT Oxygen Saturation 99% 12/04/2024 10:19 AM CDT Inhaled Oxygen Concentration - - Weight 70.9 kg (156 lb 4.8 oz) 12/04/2024 10:19 AM CDT Height 165.1 cm (5' 5) 12/04/2024 10:19 AM CDT Body Mass Index 26.01 12/04/2024 10:19 AM CDT Plan of Treatment Upcoming Encounters Date Type Department Care Team (Late st Contact Info) Description 02/26/2025 9:40 AM CDT Office Visit [facility] [address] [facility], [address] [place] [phone] Angie Barnhart MD [address] [place] [id number] 11/07/2025 9:40 AM CDT Office Visit [facility] [address] [facility], [address] [place] [phone] Angie Barnhart MD [address] [place] [id number] Health Maintenance Due Date Last Done Comments Colorectal Cancer Screening Colonoscopy (10 Years) 1965 Annual Physical 1968 Hepatitis C 12/02/1983 Hepatitis B Vaccines (1 of 3 - 19+ 3-dose series) 1984 Mammogram Screening 2005 Pneumococcal Vaccine: 50+ Ye ars (1 of 1 - PCV) 12/02/2015 Zoster Vaccines (1 of 2) 12/02/2015 Cervical Cancer Screening Pa p Smear (Age 30 to 64) Every 3 Years 04/06/2020 04/06/2017 Cervical Cancer Screening Pa p with HPV Testing (Age 30 to 64) Every 5 Years 04/06/2022 04/06/2017 Cervical Cancer Screening with HPV 04/06/2022 COVID-19 Vaccine (2 - 2023-2 5 season) 2024 07/08/2020 DTaP, Tdap and Td Vaccines ( 2 - Td or Tdap) 09/02/2025 09/03/2015 PHQ-2 (Phys[employer]) Completed 11/06/2024 Meningococcal B Vaccine Aged Out No l onger eligible based on patient's age to complete this topic Meningococcal Vaccine Aged Out No manju ish eligible based on patient's age to complete this topic RSV Immunizations Under 20 Months Aged Out No longer eligible based on patient's age to complete this topic Insurance [employer] Care Teams Train Conductor Relationship Specialty Start Date End Date Landon Aranda MD PCP - General FAMILY PRACTICE 09/16/20
--- OUTSIDE RECORDS SUMMARY | 2024-12-21 10:18 | XMS_ITS | Encounter Summary ---
Author Organization [facility] Address [address] [place] [address] Care Team Providers Care All Around Gear Machine Operator Name Role Phone Landon Aranda MD Primary Care Provider [phone] Encounter Details Date Type Department Care Team (Late Contact Info) Description 09/16/2020 Prep for Procedure [facility] [place] [phone] Mai Calderon NP [address] [facility] [address] [place] [phone] (Work) Social History Tobacco Use Types Packs/Day Years Used Date Smoking Tobacco: Never Smokeless Tobacco: Never Alcohol Use Standard Drinks/Week Comments Yes 1 (1 standard drink = 0.6 oz pur e alcohol) Education Answer Date Recorded What is the highest level of school you have completed or the highest degree you have received? Associate degree: academic program 09/16/2020 Comments No Sex and Gender Information Value Date Recorded Sex Assigned at Not on file Legal Sex Female 8:46 AM CDT Gender Identity Not on file Sexual Orientation Not on file COVID-19 Exposure Response Date Recorded In the last month, have you been in contact with someone who was confirmed or suspected to have Coronavirus / COVID-19? No / Unsure 09/16/2020 12:38 PM CDT documented as of this encounter Plan of Treatment Upcoming Encounters Date Type Department Care Team (Late Contact Info) Description 02/26/2025 9:40 AM CDT Office Visit [facility] - [address], [address] [place] [phone] Angie Barnhart MD [address] [place] [phone] 11/07/2025 9:40 AM CDT [facility] [place] [facility] - [address], [address] [place] [phone] Angie Barnhart MD [address] [place] [phone] documented as of this encounter Visit Diagnoses Not on filedocumented in this encounter Care Teams All Around Gear Machine Operator Relationship Specialty Start Date End Date Landon Aranda MD PCP - General FAMILY PRACTICE 09/16/20 documented as of this encounter
--- OUTSIDE RECORDS SUMMARY | 2024-12-21 10:19 | XMS_ITS | Clinical Summary ---
Author Organization [facility] Address [address] [place] [address] Care Team Providers Care Packer Insulation Name Role Phone Landon Aranda MD Primary Care Provider [phone] Source Comments [facility],non-owned Affiliates and Associated Physician Practices is amultiple site organization consisting of ambulatory clinics and hospital sitesin [place], [place], [place] and [place]. This disclosure is being madepursuant to the Care Everywhere program and may not contain all information available regarding this patient. Last updated 18.[facility] Allergies Active Allergy Reactions Criticality Noted Date Comments Adhesive Sensitivity Unknown 04/01/2015 Ibuprofen GI Discomfort Medium 09/16/2023 Albumin Nausea and/or Vomiting,Unknown Low 05/09/2019 Sulfa Drugs Unknown,Rash,Swelling High 02/19/2013 Other reaction(s): Other (see comment) Reaction: Unknown, Skin glue causes blisters Medications * Be aware that medications may not be up to date on this document. Alwaysverify current medications with the patient. albuterol HFA (PROVENTIL;VENTOLI N;PROAIR) 108 (90 Base) MCG/ACT inhaler Inhale 2 (two) puffs by mouth every 4 hours 05/25/19 21 Active ALPRAZolam (XANAX) 0.5 MG tablet Take 1 (one) tablet by mouth 2 times daily as needed for Anxiety 05/13/19 21 Active atorvastatin (LIPITOR) 20 MG tablet Take 1 (one) tablet by mouth at bedtime 10/05/19 21 Active levocetirizine (XYZAL) 5 MG tablet Take 1 (one) tablet by mouth at bedtime 06/15/19 21 Active montelukast (SINGULAIR) 10 MG tablet Take 1 (one) tablet by mouth at bedtime 10/05/19 21 Active primidone (MYSOLINE) 50 MG tablet Take 3 (three) tablets by mouth at bedtime 09/05/19 21 Active topiramate (TOPAMAX) 200 MG tablet Take 1.5 (one and one-half) tablets by mouth 2 times daily 09/06/19 21 Active acetaminophen (TYLENOL) 500 MG tablet Take 2 (two) tablets by mouth every 6 hours as needed Active celecoxib (CELEBREX) 100 MG capsule Take 1 (one) capsule by mouth once daily Active estradiol (Estrace) 1 MG tablet Take 1 (one) tablet by mouth once daily 10/23/19 23 Active vitamin D, ergocalciferol, (Drisdol) 1.25 MG (82925 UT) capsule Take 1 (one) capsule by mouth 10/08/19 23 Active DULoxetine (Cymbalta) 30 MG capsule 04/29/20 21 Active metoprolol succinate XL 24hr (Toprol XL) 25 MG tablet TAKE 1/2 TABLET (12.5 MG) ORALLY DAILY 09/12/19 23 Active Qulipta 60 MG TABS Take 1 (one) tablet by mouth once daily 05/23/19 25 Active Aimovig 140 MG/ML auto injector pen Inject 1 mL subcutaneously 07/24/19 25 Active Ubrelvy 100 MG tablet TAKE 1 TABLET BY MOUTH 2 (TWO) TIMES DAILY NEEDED. MAX OF 2 TABLETS (200 MG) IN 24 HOURS Active diclofenac sodium (Voltaren) 1 % gelIndications:Abbey keisha osteoarthritis of left knee,Primary osteoarthritis of right knee,Chronic pain of both knees Apply 4 (four) g to affected area 4 times daily Apply to knees 100 g 5 09/29/19 25 Active Active Problems Problem Noted Date Diagnosed Date Breast implant rupture 10/24/2020 Right shoulder pain 06/05/2020 Cervical radiculopathy 06/05/2020 Impaired cognition 05/11/2019 Essential tremor 05/11/2019 Overview (10/24/2020): Last Assessment & Plan: She has a [...] This was a telemedicine visit with Ivis Szymanski alone which took place via Telephone. During the visit, I was located in my office at [address] [place] [address] and the patient was located at her home in [place]. The session started at 13:06 and ended [...] a telephone or video visit during the [facility] [place] [address] emergency. After being given an opportunity to [...] of care as documented in the note. Abnormal weight gain 07/03/2014 Depressive disorder 07/03/2014 Hyperlipidemia 06/05/2014 Vitamin D deficiency 06/05/2014 Cellulitis and abscess of buttock 10/29/2013 Acute bronchitis 08/27/2013 Neck pain 05/30/2013 Asthma 05/30/2013 Allergic rhinitis 02/19/2013 Headache 02/19/2013 Resolved Problems Problem Noted Date Diagnosed Date Resolved Date Sinusitis 10/24/2020 11/21/2020 Acute sinusitis 02/19/2013 11/07/2020 Encounters Date Type Department Care Team Description 09/28/2024 10:58 AM CDT - 09/28/2024 11:59 PM CDT Hospital Encounter [facility] [address] [facility] [place] [address] Ananya Davis PA-C Discharge Disposition: Home or Self Care 09/28/2024 10:45 AM CDT Office Visit [facility] [address] [place] [address] Ananya Davis PA-C Primary osteoarthritis of left knee (Primary Dx); Primary osteoarthritis of right knee; Chronic pain of both knees 09/28/2024 Orders Only [facility] [address] [place] [phone] Ananya Davis PA-C Pain in both knees, unspecified chronicity 09/28/2024 Travel from Last 3 Months Social History Tobacco Use Types Packs/Day Years Used Date Smoking Tobacco: Never Smokeless Tobacco: Never Alcohol Use Standard Drinks/Week Comments Not Currently 0 (1 standard drink = 0.6 oz pur e alcohol) Comments Unknown Sex and Gender Information Value Date Recorded Sex Assigned at Not on file Legal Sex Female 1:15 PM CDT Gender Identity Not on file Sexual Orientation Not on file Last Filed Vital Signs Vital Sign Reading Time Taken Comments Blood Pressure 130/87 01/23/2021 9:17 AM CDT Pulse 80 01/23/2021 9:17 AM CDT Temperature - - Respiratory Rate 16 01/23/2021 9:17 AM CDT Oxygen Saturation 100% 01/23/2021 9:17 AM CDT Inhaled Oxygen Concentration - - Weight 70.3 kg (155 lb) 09/28/2024 11:16 AM CDT Height 161.3 cm (5' 3.5) 11/18/2022 8:52 AM CDT Body Mass Index 27.03 11/18/2022 8:52 AM CDT Plan of Treatment Upcoming Encounters Date Type Department Care Team (Late st Contact Info) Description 01/18/2025 10:45 AM CDT Office Visit [facility] [address] [place] [phone] Ananya Davis PA-C [address] [place] [id number] Health Maintenance Due Date Last Done Comments COLOGUARD (AGES 45-75) - COL ON CA SCREENING 1965 COLON MONITORING 1965 COLONOSCOPY - COLON CA SCREENING 1965 CT COLONOGRAPHY - COLON CA SCREENING 1965 Colorectal Cancer Screening 1965 FIT - COLON CA SCREENING 1965 FLEX SIG - COLON CA SCREENING 1965 MAMMOGRAM 1965 HIV SCREENING 1980 HEPATITIS C SCREENING 11/27/1983 DTAP/TDAP/TD VACCINES (1 - Tdap) 1984 HEPATITIS B VACCINE (1 of 3 - 19+ 3-dose series) 1984 PNEUMOCOCCAL VACCINE 50+ (1 of 2 - PCV) 1984 ZOSTER VACCINE (1 of 2) 12/02/2015 PAP SMEAR 04/06/2020 04/06/2017 COVID-19 VACCINE (1 - 2023-2 5 season) 2024 DEPRESSION SCREENING 05/02/2024 MEDICARE AWV CALENDAR YEAR 2024 INFLUENZA VACCINE (#1) 2024 03/15/2020 HIB VACCINE Aged Out No longer eligi ble based on patient's age to complete this topic HPV VACCINE Aged Out No longer eligi ble based on patient's age to complete this topic MENINGOCOCCAL (Group B) VACC INE SHARED DECISION-MAKING Aged Out No longer eligibl e based on patient's age to complete this topic MENINGOCOCCAL GROUPS A/C/Y/W VACCINE Aged Out No longer eligible b ased on patient's age to complete this topic Goals Goal Patient Goal Type Associated Problems Recent Progress Patient-Stated? Author Mobility General No Aysha Lopez, RN Note: Expected end date: 10/29/2021 The goal is to maintain or improve your mobility at the optimum level for you. Interventions: Procedures Procedure Name Priority Date/Time Associated Diagnosis Comments [place] DRAIN/INJECT LARGE JOINT/BURSA Routine 09/28/2024 11:14 AM CDT Primary osteoarthritis of left knee Primary osteoarthritis of right knee Chronic pain of both knees [place] DRAIN/INJECT LARGE JOINT/BURSA Routine 09/28/2024 11:14 AM CDT Primary osteoarthritis of left knee Primary osteoarthritis of right knee Chronic pain of both knees XR KNEE RIGHT 4VW OR MORE Routine 09/28/2024 11:10 AM CDT Pain in both knees, unspecified chronicity XR KNEE LEFT 4VW OR MORE Routine 09/28/2024 11:10 AM CDT Pain in both knees, unspecified chronicity from Last 3 Months Results * [place] DRAIN/INJECT LARGE JOINT/BURSA (09/28/2024 11:14 AM CDT) Ananya Linda PA-C - 09/28/2024 11:14 AM CDT Ananya Davis PA-C 09/28/2024 2:42 PM Diagnosis: left Knee Arthritis A time out was preformed. After risks, benefits, alternatives were discussed, the patient elected to proceed forward with knee injection/aspiration. The appropriate site and side was confirmed with the patient. The left knee was prepped with betadine and alcohol. Ethyl Chloride was used to anesthetize the skin followed by 3 cc's of 1% Lidocaine to infiltrate the soft tissue up to the joint capsule. Then, followed by an injection consisting of 2 cc's of 1% lidocaine and 2 mL of 40mg/ml Kenalog. A sterile bandage was placed. The patient tolerated the procedure well without complications. Post-injection instructions were given to the patient. Ananya Davis PA-C us Ananya Davis PA-C PROCEDURE/MINOR SURGICAL OR DERABLES Final Result * [place] DRAIN/INJECT LARGE JOINT/BURSA (09/28/2024 11:14 AM CDT) Narrative Ananya Davis PA-C - 09/28/2024 11:14 AM CDT Ananya Davis PA-C 09/28/2024 2:42 PM Diagnosis: right Knee Arthritis A time out was preformed. After risks, benefits, alternatives were discussed, the patient elected to proceed forward with knee injection/aspiration. The appropriate site and side was confirmed with the patient. The right knee was prepped with betadine and alcohol. Ethyl Chloride was used to anesthetize the skin followed by 3 cc's of 1% Lidocaine to infiltrate the soft tissue up to the joint capsule. Then, followed by an injection consisting of 2 cc's of 1% lidocaine and 2 mL of 40mg/ml Kenalog. A sterile bandage was placed. The patient tolerated the procedure well without complications. Post-injection instructions were given to the patient. Ananya Davis PA-C us Ananya Davis PA-C PROCEDURE/MINOR SURGICAL OR DERABLES Final Result * XR Knee Right 4Vw or More (09/28/2024 11:10 AM CDT) Anatomical Region Laterality Modality Lower Extremity Computed Radiogr aphy 09/28/2024 11:3 6 AM CDT Impressions 09/28/2024 2:28 PM CDT IMPRESSION: Mild patellofemoral and lateral compartment osteoarthritis of the knee. Report dictated by Chon Chen MD (commercial lending vice president). Aspen Segura MD have personally reviewed and interpreted this examination/study. > Interpreting Provider: Aspen Conroy MD on 09/28/2024 2:28 PM Narrative 09/28/2024 2:28 PM CDT EXAMINATION: XR KNEE RIGHT 4VW OR MORE DATE/TIME OF EXAM: 09/28/2024 11:12 AM, LOCATION [facility] HISTORY: M25.561: Pain in both knees, unspecified chronicity M25.562: Pain in both knees, unspecified chronicity knee pain COMPARISON: Right knee x-ray 11/18/2022 FINDINGS: No acute fracture or dislocation. Mild patellofemoral compartment joint space narrowing, increased. There is mild lateral compartment joint space narrowing. There are small patellar osteophytes. No significant joint effusion is seen. Bone density and texture are normal. Procedure Note Aspen Conroy MD - 09/28/2024 EXAMINATION: XR KNEE RIGHT 4VW OR MORE DATE/TIME OF EXAM: 09/28/2024 11:12 AM, LOCATION [facility] HISTORY: M25.561: Pain in both knees, unspecified chronicity M25.562: Pain in both knees, unspecified chronicity knee pain COMPARISON: Right knee x-ray 11/18/2022 FINDINGS: No acute fracture or dislocation. Mild patellofemoral compartment joint space narrowing, increased. There is mild lateral compartment jointspace narrowing. There are small patellar osteophytes. No significant joint effusion is seen. Bone density and texture are normal. IMPRESSION: Mild patellofemoral and lateral compartment osteoarthritis of the knee. Report dictated by Chon Chen MD (commercial lending vice president). Aspen Segura MD have personally reviewed and interpreted this examination/study. > Interpreting Provider: Aspen Conroy MD on 09/28/2024 2:28 PM us Ananya Davis PA-C DIAGNOSTIC IMAGING ORDERABL ES Final Result * XR Knee Left 4Vw or More (09/28/2024 11:10 AM CDT) Anatomical Region Laterality Modality Lower Extremity Computed Radiogr aphy 09/28/2024 11:3 2 AM CDT Impressions 09/28/2024 2:29 PM CDT IMPRESSION: No significant interval change in mild osteoarthritic change of the left knee. Report dictated by Chon Chen MD (commercial lending vice president). I, Aspen Conroy MD have personally reviewed and interpreted this examination/study. > Interpreting Provider: Aspen Conroy MD on 09/28/2024 2:29 PM Narrative 09/28/2024 2:29 PM CDT EXAMINATION: XR KNEE LEFT 4VW OR MORE DATE/TIME OF EXAM: 09/28/2024 11:12 AM, LOCATION [facility] HISTORY: M25.561: Pain in both knees, unspecified chronicity M25.562: Pain in both knees, unspecified chronicity knee pain COMPARISON: No prior study is available for comparison. FINDINGS: No acute fracture or dislocation. There is similar mild patellofemoral compartment joint space narrowing. No significant medial or lateral compartment joint space narrowing. Small osteophyte at the lateral aspect of the patella. No significant joint effusion is seen. Bone density and texture are normal. Procedure Note Aspen Conroy MD - 09/28/2024 EXAMINATION: XR KNEE LEFT 4VW OR MORE DATE/TIME OF EXAM: 09/28/2024 11:12 AM, LOCATION [facility] HISTORY: M25.561: Pain in both knees, unspecified chronicity M25.562: Pain in both knees, unspecified chronicity knee pain COMPARISON: No prior study is available for comparison. FINDINGS: No acute fracture or dislocation. There is similar mild patellofemoral compartment joint space narrowing. No significant medial or lateral compartment joint space narrowing. Small osteophyte at the lateralaspect of the patella. No significant joint effusion is seen. Bone density and texture are normal. IMPRESSION: No significant interval change in mild osteoarthritic change of the left knee. Report dictated by Chon Chen MD (commercial lending vice president). I, Aspen Conroy MD have personally reviewed and interpreted this examination/study. > Interpreting Provider: Aspen Conroy MD on 09/28/2024 2:29 PM us Ananya Davis PA-C DIAGNOSTIC IMAGING ORDERABL ES Final Result from Last 3 Months Insurance [facility] Address: [facility] [address] [place] [address] [employer] MEDICARE ADV Care Teams Packer Insulation Relationship Specialty Start Date End Date Landon Aranda MD PCP - General 10/10/20
--- OUTSIDE RECORDS SUMMARY | 2024-12-21 10:19 | XMS_ITS | Patient Health Record ---
Author Organization [facility] Address [address] [place] [address] Care Team Providers Care Manager Medicare Name Role Phone Manoj NAYLOR, Landon Primary Care Provider Martha Negron Unavailable [phone] Allergies Allergen (clinical drug ingredient) Drug/Non Drug Allergy documented on EMR Reaction Allergy Type Onset Date Status ibuprofen Advil Unknown Drug Allergy 01/28/2023 Active Adhesive Unknown Allergy 01/21/2023 Active Substance with sulfonamide structure and antibacterial mechanism of action (substance) Sulfa Antibiotics Unknown Drug Allergy 01/21/2023 Active Reason For Referral No Information Medications Medication SIG (Take, Route, Frequency, Duration) Notes Start Date End Date Status Ajovy 225 MG/1.5ML 1.5 mL Subcutaneous; Duration: 30 day(s) Active Tylenol Extra Strength - take 2 tablets prn oral *Pick strength-form from [employer] for eRX* Active Atorvastatin Calcium 40 MG 1 tablet Orally Once a day; Duration: 30 day(s) Active Albuterol Sulfate HFA 108 (90 Base) MCG/ACT prn Inhalation Acti ve Montelukast Sodium 10 MG 1 tablet Orally Once a day; Duration: 30 day(s) Active Primidone 50 MG take 4 tabs daily Oral Active Vitamin D (Ergocalciferol) 1.25 MG (72282 UT) take 1 capsule weekly Oral Active Metoprolol Succinate ER 25 MG take 1 tablet (25 mg) by oral route once daily Oral 1 Active Gabapentin 600 MG 1 tablet Orally 3 times a day; Duration: 30 days Active Topiramate 200 mg take 1.5mg daily oral *Pick strength-form from [employer]span for eRX* Active ALPRAZolam 0.5 MG take 1 tablet daily as needed Oral Active DULoxetine HCl 60 MG take 1 capsule (60 mg) by oral route once daily Oral 1 Active Xyzal - take 1 tablet at bedtime oral *Reorder from [employer] for eRx and Interaction Alerts* Active Problems Problem Type SNOMED Code ICD Code Onset Dates Problem Status W/U Status Risk Notes Problem Fibromyalgia (611843696) Fibromyalgia (M79.7) Active confirmed Problem Osteoarthritis, unspecified osteoarthritis type, unspecified site (M19.90) Active confirmed Plan Of Treatment Pending Test Test Name Order Date CRP (C-REACTIVE PROTEIN) 12/16/2023 RHEUMATOID FACTOR (RF), QUANTITATIVE CK 12/16/2023 CMP(COMPREHENSIVE METABOLIC PANEL) 12/15 C3 AND C4 COMPLEMENTS 12/16/2023 CBC W/DIFF 12/16/2023 SEDIMENTATION RATE, ESR 12/16/2023 CYCLIC CITRULLINATED PEPTIDE (CCP) AB, I gG/IgA 12/16/2023 SCLERODERMA ANTIBODY 70 (SCL-70) 024 SSA/SSB ANTIBODY (SJOGREN'S) 12/16/2023 TAN / KEYBOARDING TEACHER ANTIBODY 12/16/2023 DNA (DS) ANTIBODY 12/16/2023 SERA SCREEN/REFLEX TITER/PATTERN 12/16/19 24 Insurance Providers Payer Name Payer Address Payer Phone Subscriber Number Group Number Insured Name Patient Relationship to Insured Coverage Start Date Coverage End Date [place] [address] [place] [address] [id number] Ivis Szymanski Self - patient is the insured Medical (General) History Medical History History ICD Code SERA positive; Asthma; Depression; Hyperlipidemia; Vitamin D deficiency; Parkinson's disease Surgical History Surgery Date(Month/Year) breast implant removal; 2023-01-21
--- OUTSIDE RECORDS SUMMARY | 2024-12-21 10:19 | XMS_ITS | Clinical Summary ---
Author Organization [facility] Address [facility] [place] [address] Care Team Providers Care Photographic Printer Name Role Phone Landon Aranda MD Primary Care Provider [phone] Allergies Active Allergy Reactions Criticality Noted Date Comments Adhesive Unknown 04/01/2015 Egg Unknown,Nausea And Vomiting Low 05/09/2019 Ibuprofen Unknown,Stomach upset Medium 01/28/2023 Other Unknown 04/01/2015 Sulfa (Sulfonamide Antibiotics) Other (See comments),Rash,Swell ing,Unknown High 02/19/2013 Reaction: Unknown, Other reaction(s): Other (see comment) Reaction: Unknown, Skin glue causes blisters Unclassified Drug Rash Medium 07/05/2019 Skin glue causes blisters Medications levocetirizine (XYZAL) 5 mg tablet levocetirizine 5 mg tablet Active montelukast (SINGULAIR) 10 mg tablet montelukast 10 mg tablet Active atorvastatin (LIPITOR) 20 mg tablet Take 1 tablet (20 mg total) by mouth daily Active albuterol HFA (PROVENTIL HFA,VENTOLIN HFA,PROAIR HFA) 90 mcg/actuation inhaler inhale 2 puff by inhalation route every 4 - 6 hours as needed as needed 05/13/19 21 Active metoprolol XL (TOPROL-XL) 25 mg extended release tablet Take 1 tablet (25 mg total) by mouth daily 03/22/20 22 Active acetaminophen (TYLENOL) 500 mg tablet Take 2 tablets (1,000 mg total) by mouth every 6 (six) hours as needed for headaches Active ergocalciferol (VITAMIN D) 50,000 unit capsule Take 1 capsule (50,000 Units total) by mouth once a week Active celecoxib (CeleBREX) 100 mg capsule Take 1 capsule (100 mg total) by mouth daily Active Mimvey 1-0.5 mg per tablet Take 1 tablet by mouth daily 05/28/19 24 Active gabapentin (NEURONTIN) 600 mg tablet Take 1 tablet (600 mg total) by mouth 3 (three) times a day 07/11/[address] (CYMBALTA) 60 mg capsule Take 1 capsule (60 mg total) by mouth every morning 10/04/19 24 Active oxyCODONE-acetam inophen (PERCOCET) 7.5-325 mg per tablet Take 1 tablet by mouth every 6 (six) hours as needed 04/30/20 24 Active primidone (MYSOLINE) 50 mg tabletIndication s:Cervical dystonia TAKE 1 TAB (50MG) DAILY IN THE MORNING AND 4 TABS (200MG) DAILY IN THE EVENING. 06/19/19 25 Active Qulipta 60 mg tablet Take 1 tablet by mouth daily Active metoclopramide (REGLAN) 5 mg tablet Take 1 tablet (5 mg total) by mouth every 6 (six) hours as needed 06/29/19 25 Active pramipexole (MIRAPEX) 0.25 mg tablet Take 1 tablet (0.25 mg total) by mouth nightly at bedtime 08/25/19 25 Active Aimovig Autoinjector 140 mg/mL auto-injector Inject 1 mL (140 mg total) under the skin every month 07/24/19 25 Active Abilify 10 mg tablet Take 1 tablet (10 mg total) by mouth daily 08/25/19 25 Active Ubrelvy 100 mg tablet TAKE 1 TABLET BY MOUTH 2 (TWO) TIMES DAILY NEEDED. MAX OF 2 TABLETS (200 MG) IN 24 HOURS Active topiramate (TOPAMAX) 200 mg tabletIndication s:Migraine Take 1 tablet (200 mg total) by mouth 2 (two) times a day 12/05/19 25 Active topiramate (TOPAMAX) 200 mg tabletIndication s:Migraine Take 1.5 tablets (300 mg total) by mouth 2 (two) times a day 025 Discontin u([facility] Hospital, Clinic, or Other Facility Administered Medication Ordered Dose Route Frequency Start Date End Date Status onabotulinumtoxin A (BOTOX) injection 200 UnitsIndications:C ervical dystonia 200 Units IM Once for Clinic-Administe red Medication 12/20/2024 6 Active onabotulinumtoxin A (BOTOX) injection 300 UnitsIndications:C ervical dystonia 300 Units IM Once for Clinic-Administe red Medication 12/18/2024 5 Ended onabotulinumtoxin A (BOTOX) injection 300 UnitsIndications:C ervical dystonia 300 Units IM Once for Clinic-Administe red Medication 12/19/2024 5 Discontinued onabotulinumtoxin A (BOTOX) injection 200 UnitsIndications:C ervical dystonia 200 Units IM Once for Clinic-Administe red Medication 12/19/2024 5 Ended onabotulinumtoxin A (BOTOX) injection 300 UnitsIndications:C ervical dystonia 300 Units IM Once for Clinic-Administe red Medication 12/19/2024 5 Discontinued onabotulinumtoxin A (BOTOX) injection 200 UnitsIndications:C ervical dystonia 200 Units IM Once for Clinic-Administe red Medication 12/18/2024 5 Ended Active Problems Problem Noted Date Diagnosed Date Fibromyalgia 08/11/2023 Osteoarthritis 08/11/2023 Cervical dystonia 04/08/2023 Assessment & Plan (12/20/2024 9:10 PM CDT): She has late adulthood onset, progressive, persistent, primary focal (isolated cervical) dystonia. She had good benefits from the last botulinum toxin injections. This benefit has now started wearing off and she would be an appropriate candidate for repeat injections. The potential risks (including but not limited to bruising, hematoma, neck weakness, dysphagia, infection, and injection site pain etc.), benefits, alternatives to chemodenervation were discussed and a signed consent was obtained. Recommendations: Botox injected as detailed below. Please preauthorize Botox: 300 Units for the next visit. Botox administered: 180 Units (amount wasted: 20 Units) injected into the following muscles using a 1 ml dilution: 40U Levator Scapulae (left) 20U Splenius Capitis (left) 40U Sternocleidomastoid (right) 60U Trapezius (left) 20U Trapezius (right) Assessment & Plan (09/21/2024 12:31 PM CDT): She has late adulthood onset, progressive, persistent, primary focal (isolated cervical) dystonia. She had good benefits from the last botulinum toxin injections. This benefit has now started wearing off and she would be an appropriate candidate for repeat injections. The potential risks (including but not limited to bruising, hematoma, neck weakness, dysphagia, infection, and injection site pain etc.), benefits, alternatives to chemodenervation were discussed and a signed consent was obtained. She would need a higher dose for optimal benefits, our office will preauthorize this. We discussed that we would stick with the same dose at this visit given the potential confounder: fall that could have worsened her dystonia, but would maintain a low threshold to uptitrate this if she again has suboptimal benefits with this round of injections. Recommendations: Botox injected as detailed below. Please preauthorize Botox: 300 Units for the next visit. Botox administered: 180 Units (amount wasted: 20 Units) injected into the following muscles using a 1 ml dilution: 40U Levator Scapulae (left) 20U Splenius Capitis (left) 40U Sternocleidomastoid (right) 60U Trapezius (left) 20U Trapezius (right) Assessment & Plan (06/19/2024 11:30 AM ANGER CONTROL COUNSELOR): She has late adulthood onset, progressive, persistent, primary focal (isolated cervical) dystonia. She had good benefits from the last botulinum toxin injections. This benefit has now started wearing off and she would be an appropriate candidate for repeat injections. The potential risks (including but not limited to bruising, hematoma, neck weakness, dysphagia, infection, and injection site pain etc.), benefits, alternatives to chemodenervation were discussed and a signed consent was obtained. Recommendations: Botox injected as detailed below. Botox administered: 180 Units (amount wasted: 20 Units) injected into the following muscles using a 1 ml dilution: 40U Levator Scapulae (left) 20U Splenius Capitis (left) 40U Sternocleidomastoid (right) 60U Trapezius (left) 20U Trapezius (right) Assessment & Plan (03/20/2024 9:39 AM ANGER CONTROL COUNSELOR): She has late adulthood onset, progressive, persistent, primary focal (isolated cervical) dystonia. She had good benefits from the last botulinum toxin injections. This benefit has now started wearing off and she would be an appropriate candidate for repeat injections. The potential risks (including but not limited to bruising, hematoma, neck weakness, dysphagia, infection, and injection site pain etc.), benefits, alternatives to chemodenervation were discussed and a signed consent was obtained. Recommendations: Botox injected as detailed below. Botox administered: 180 Units (amount wasted: 20 Units) injected into the following muscles using a 1 ml dilution: 40U Levator Scapulae (left) 20U Splenius Capitis (left) 40U Sternocleidomastoid (right) 60U Trapezius (left) 20U Trapezius (right) Assessment & Plan (12/02/2023 4:33 PM CDT): She has late adulthood onset, progressive, persistent, primary focal (isolated cervical) dystonia. She had good benefits from the last botulinum toxin injections. This benefit has now started wearing off and she would be an appropriate candidate for repeat injections. The potential risks (including but not limited to bruising, hematoma, neck weakness, dysphagia, infection, and injection site pain etc.), benefits, alternatives to chemodenervation were discussed and a signed consent was obtained. Recommendations: Botox injected as detailed below. Botox administered: 180 Units (amount wasted: 20 Units) injected into the following muscles using a 1 ml dilution: 40U Levator Scapulae (left) 20U Splenius Capitis (left) 40U Sternocleidomastoid (right) 60U Trapezius (left) 20U Trapezius (right) Assessment & Plan (08/23/2023 11:28 AM CDT): She has late adulthood onset, progressive, persistent, primary focal (isolated cervical) dystonia. She had good benefits from the last botulinum toxin injections. This benefit has now started wearing off and she would be an appropriate candidate for repeat injections. The potential risks (including but not limited to bruising, hematoma, neck weakness, dysphagia, infection, and injection site pain etc.), benefits, alternatives to chemodenervation were discussed and a signed consent was obtained. She has also had a sudden onset stuttering that started about 6 weeks ago and this has been distressing for her, her tremor has been worse as well. She does not want to see Speech Therapy at this time and wants to continue with just OT for now. She mentions having met with her PCP Dr. Aranda in the interim she wanted to let us know that Dr. Aranda thought she would be an appropriate candidate for disability, which she is applying for. I mentioned to her that we do not make those decisions and we would be happy to provide all our clinic visit notes and fill up the paperwork with our findings. She also expressed discontent regarding her recent ROV with our ONLINE AFFILIATE MARKETING MANAGER as she felt rushed, I told her that I have reviewed that office visit note and plan with ONLINE AFFILIATE MARKETING MANAGER and it was a thorough evaluation. She was okay with continuing to see the same ONLINE AFFILIATE MARKETING MANAGER for now. Recommendations: Botox injected as detailed below. Botox administered: 180 Units (amount wasted: 20 Units) injected into the following muscles using a 1 ml dilution: 40U Levator Scapulae (left) 20U Splenius Capitis (left) 40U Sternocleidomastoid (right) 60U Trapezius (left) 20U Trapezius (right) Assessment & Plan (05/10/2023 11:00 AM ANGER CONTROL COUNSELOR): She has late adulthood onset, progressive, persistent, primary focal (isolated cervical) dystonia. This significantly interferes with her activities. We discussed the treatment options and strategies including botulinum toxin, oral medications and physical therapy. Oral medications are unlikely to provide adequate benefits without causing significant side effects and botulinum toxin is the treatment of choice. She would be an excellent candidate for botulinum toxin injections and she wanted to proceed with this. The potential risks (including but not limited to bruising, hematoma, neck weakness, dysphagia, infection, and injection site pain etc.), benefits, alternatives to chemodenervation were discussed and a signed consent was obtained. She would need a higher dose for optimal benefits, our office will preauthorize this. Recommendations: Botox injected as detailed below. Please preauthorize Botox: 300 Units for the next visit. Botox administered: 180 Units (amount wasted: 20 Units) injected into the following muscles using a 1 ml dilution: 40U Levator Scapulae (left) 20U Splenius Capitis (left) 40U Sternocleidomastoid (right) 60U Trapezius (left) 20U Trapezius (right) Breast implant rupture 10/24/2020 Right shoulder pain 06/05/2020 Cervical myeloradiculopathy 06/05/2020 Essential tremor 05/11/2019 Assessment & Plan (12/07/2024 10:09 PM CDT): She has a longstanding history of kinetic tremor spanning several decades without a clear family history of ET and no clear benefits with alcohol; this is consistent with ET. The tremor has responded very well to primidone; she is tolerating it well at the current dosage without any dose limiting side effects. Additionally, she has a rather sudden onset (2018) right hand rest tremor that was notable at the initial office visit (2019) for clear suggestibility, distractibility, entrainment and constantly varying frequency and amplitude along with gait that was consistent with astasia-abasia and more recent onset stuttering. Of note, the rest tremor and gait abnormality had completely resolved for around 3 years in the interim with a more recent recurrence. 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 Of note, she was started on aripiprazole and pramipexole at the same time by her PMD and this resulted in complete resolution of her stuttering and significant improvement of her right hand tremor. Her exam except for the functional overlay continues to be assuring; I did not notice any objective weakness or postural instability. She also takes gabapentin and topiramate for other indications that should also help the underlying ET; addtionally she has also been taking metoprolol (for other indications); we discussed that transitioning to propranolol may also provide additional benefits for the ET but not the tremor due to FND. She has adult onset, idiopathic isolated cervical dystonia. This is late adulthood onset, progressive, persistent, primary focal (isolated cervical) dystonia. This significantly interferes with her activities. She has had excellent benefits with botulinum toxin injections and should continue this. There is only subtle evidence of parkinsonism at this time very commonly seen in the setting of ET; I told her that she does not have Parkinson disease and I did not notice significant objective progression at this visit. The aripiprazole could however cause drug induced parkinsonism and this needs to be closely monitored; the indication for the agonist that was started concurrently with the aripiprazole by her PMD is not entirely clear to me. Quetiapine with less D2 blockade may be considered instead of aripiprazole. Recommendations: 1. same primidone. 2. Gabapentin and topiramate as per prescribing physicians. 3. Refer to website: [email or web address].org for functional tremor and functional gait disorder. 4. Alternate agent quetiapine may be considered instead of aripiprazole by prescribing physician. 5. Continue botulinum toxin injections for cervical dystonia. 6. May consider discussing with prescribing physician about possible switch from metoprolol to propranolol with any worsening of tremor due to ET. 7. continue daily stretching and exercises. I have established and will maintain a relationship with this patient to longitudinally manage their chronic neurological movement disorders. My total encounter time on 12/04/2024 was 48 minutes (face to face encounter: 3:12 PM - 3:57 PM), which was spent in the activities documented in the note. This includes time spent prior to the visit and after the visit in direct care of the patient. This time does not include any separately reportable services. Assessment & Plan (05/11/2024 5:33 PM ANGER CONTROL COUNSELOR): She has a longstanding history of kinetic tremor spanning several decades without a clear family history of ET and no clear benefits with alcohol; this is consistent with ET. The tremor has responded very well to primidone but there has significant subjective worsening in the interim. Even though I do not notice significant objective worsening of her tremor given she has experienced more trouble with her daily activities especially with eating and drinking; we discussed the options and decided to try a slight uptitration of only the night time dose of primidone; strategies and side effects discussed. Additionally, she has a rather sudden onset (2018) right hand rest tremor that was notable at the initial office visit (2019) for clear suggestibility, distractibility, entrainment and constantly varying frequency and amplitude along with gait that was consistent with astasia-abasia and more recent onset stuttering. Of note, the rest tremor and gait abnormality had completely resolved for around 3 years in the interim with a more recent recurrence and new onset right leg rest tremor (2023); at this office visit (05/08/24) I did not notice any rest tremor but an atypical postural right hand tremor with a semiflexed and semipronated elbow. 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 I did not notice any objective weakness or postural instability. She also takes gabapentin and topiramate for other indications that should also help the underlying ET; addtionally she has also been taking metoprolol (for other indications); we discussed that transitioning to propranolol may also provide additional benefits for the ET but not the tremor due to FND. She has adult onset, idiopathic isolated cervical dystonia. This is late adulthood onset, progressive, persistent, primary focal (isolated cervical) dystonia. This significantly interferes with her activities. She has had excellent benefits with botulinum toxin injections but would benefit from a slightly higher dose for optimal benefits; our office will work on the preauthorization. There is only subtle evidence of parkinsonism at this time very commonly seen in the setting of ET; I told her that she does not have PD and the parkinsonism needs to be clinically monitored given the higher incidence of PD in the setting of ET. There has not been a significant subjective or objective worsening of her parkinsonism in the interim. Recommendations: 1. increase primidone as directed; strategies and side effects discussed. 2. Gabapentin and topiramate as per prescribing physicians. 3. Refer to website: [email or web address].org for functional tremor and functional gait disorder. 5. Continue botulinum toxin injections for cervical dystonia; will request Botox: 200 Units for the next visit for optimal benefits. 6. May consider discussing with prescribing physician about possible switch from metoprolol to propranolol. 7. Refer to general neurology/headache clinic here as per her request for further management of her migraines. 8. continue daily stretching and exercises. I have established and will maintain a relationship with this patient to longitudinally manage their chronic neurological movement disorders. I have established and will maintain a relationship with this patient to longitudinally manage their chronic neurological movement disorders. My total encounter time on 05/08/2024 was 57 minutes (face to face encounter: 4:12 PM - 5:05 PM), which was spent in the activities documented in the note. This includes time spent prior to the visit and after the visit in direct care of the patient. This time does not include any separately reportable services. Assessment & Plan (10/06/2023 12:21 PM CDT): She has a longstanding history of kinetic tremor spanning several decades without a clear family history of ET and no clear benefits with alcohol; this is consistent with ET. The tremor has responded very well to primidone but there has significant subjective worsening in the interim. We discussed that although she has underlying ET; I did not notice a significant objective worsening of her kinetic tremor. Additionally, she has a rather sudden onset (2018) right hand rest tremor that was notable at the initial office visit (2019) for clear suggestibility, distractibility, entrainment and constantly varying frequency and amplitude along with gait that was consistent with astasia-abasia and more recent onset stuttering. Of note, the rest tremor and gait abnormality had completely resolved for around 3 years in the interim with a more recent recurrence and new onset right leg rest tremor (2023). 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 I did not notice any objective weakness or postural instability. She also takes gabapentin and topiramate for other indications that should also help the underlying ET; addtionally she has also been taking metoprolol (for other indications); we discussed that transitioning to propranolol may also provide additional benefits for the ET but not the tremor due to FND. We discussed the diagnosis of FND and that working with OT here specifically focusing on FND would be helpful; she is interested to pursue this. Will refer. She has adult onset, idiopathic isolated cervical dystonia. This is late adulthood onset, progressive, persistent, primary focal (isolated cervical) dystonia. This significantly interferes with her activities. We discussed the treatment options and strategies including botulinum toxin, oral medications and physical therapy. Oral medications are unlikely to provide adequate benefits without causing significant side effects and botulinum toxin is the treatment of choice. She would be an excellent candidate for botulinum toxin injections and she wanted to proceed with this. The potential risks (including but not limited to bruising, hematoma, neck weakness, dysphagia, infection, and injection site pain etc.), benefits, alternatives to chemodenervation were discussed, she wanted to proceed with this, our office will work on the preauthorization. Given the complaints of neck pain and paresthesias in her fingers, subjective weakness and gait imbalance, will additionally evaluate this with imaging. There is only subtle evidence of parkinsonism at this time very commonly seen in the setting of ET; I told her that she does not have PD and the parkinsonism needs to be clinically monitored given the higher incidence of PD in the setting of ET. There has not been a significant subjective or objective worsening of her parkinsonism in the interim. Recommendations: 1. same primidone. 2. Gabapentin and topiramate as per prescribing physicians; discuss with PMD regarding referral to general neurologist locally for further management of migraines. 3. Please search for functional tremor and functional gait disorder in the website: [email or web address] as discussed. 4. Refer to OT here specifically for functional neurologic disorder. 5. Continue botulinum toxin injections for cervical dystonia. 6. May consider discussing with prescribing physician about possible switch from metoprolol to propranolol. 7. continue daily stretching and exercises. I have established and will maintain a relationship with this patient to longitudinally manage their chronic neurological movement disorders. My total encounter time on 10/04/2023 was 49 minutes (face to face encounter: 2:33 PM - 3:17 PM), which was spent in the activities documented in the note. This includes time spent prior to the visit and after the visit in direct care of the patient. This time does not include any separately reportable services. Assessment & Plan (07/29/2023 2:20 PM CDT): Mrs. Szymanski has long-standing history of kinetic tremor (spanning several decade) without clear family history of ET or historical benefit from alcohol. This has been consistent with ET and has historically responded well to primidone without dose-limiting side effects thus far. There has been significant subjective though mildly objective worsening that interferes with daily activities. She has tolerated the addition of a 2nd dose in the AM without clear tremor improvement. Given her concern for recent worsening gait and imbalance in preceding two weeks, we will not make any adjustment to this at today's visit but re-evaluate at follow-up. In the future, could consider transition of metoprolol (reportedly for arrhythmia per patient) to propranolol to see if it provides additional tremor benefit though this will need to be coordinated with and approved first by the prescribing provider. 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 Of note, the rest tremor and gait abnormality had completely resolved for around 3 years in the interim. She has similar objective findings on exam at this visit. 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 primidone and gabapentin increases in April and May). Although she has had subtle evidence of parkinsonism this is very commonly seen in setting of ET and we will continue to monitor this over time. There has not been a significant subjective nor objective worsening of this thus far. She also complained of a new and intermittent stutter which was present very rarely in today's visit. There was no dysarthria. She had no objective weakness, postural instability, or asymmetric sensory deficit. Her gait was antalgic with left knee pain reported (for which she receives steroid injections) and was wandering and inconsistent in nature. She had no loss of proprioception, vibration, light touch, or extinction on sensory exam. She inconsistently endorses discrepancy in sensation to pinprick but this did not follow any clear dermatomal pattern and varied even in same location. She had intact temperature sense. I did not note any objective weakness nor postural instability. She was tearful episodically during the visit and I have encouraged her to establish a relationship with a therapist for cognitive behavior therapy for her longstanding anxiety. She is continuing PT for her gait imbalance and falls and will soon be starting OT. She also plans to follow-up with Neurosurgery to further evaluation of her cavernoma. She also has adult onset, idiopathic isolated cervical dystonia which has been progressive, persistent and primarily focal in nature (isolated cervical dystonia) and reports improvement in pain since undergoing botox injections though she notes benefit has begun wearing off. She is scheduled for repeat botox with Dr. Richard (08/23/23). Recommendations: Continue same primidone 50 mg AM/150 mg PM for tremor Continue PT, fall precautions Start OT as planned Follow-up as scheduled for botox 05/10/[address] Richard and in office 10/04/23 Follow-up with neurosurgery referral Please see your PCP Dr. Aranda for follow-up of your recent left ear infection and blood noted in ear canal Assessment & Plan (04/08/2023 8:08 AM ANGER CONTROL COUNSELOR): She has a longstanding history of kinetic tremor spanning several decades without a clear family history of ET and no clear benefits with alcohol; this is consistent with ET. The tremor has responded very well to primidone but there has significant subjective and mild objective worsening in the interim and this interferes with multiple daily activities. She has been tolerating primidone well without any dose limiting side effects, but has always taken this q PM. We discussed the options and decided to add a 2nd dose in the AM with a very gradual uptitration; strategies and side effects discussed. She has also been taking metoprolol (for other indications); transitioning to propranolol may also provide additional benefits. She had a rather sudden onset (2018) right hand rest tremor that was notable at the initial office visit (2019) for clear suggestibility, distractibility, entrainment and constantly varying frequency and amplitude along with gait that was consistent with astasia-abasia. Of note, the rest tremor and gait abnormality had completely resolved for around 3 years in the interim. She had identical objective findings at this visit. 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 I did not notice any objective weakness or postural instability, but she would benefit from PT for her gait imbalance and falls; will refer. She has adult onset, idiopathic isolated cervical dystonia. This is late adulthood onset, progressive, persistent, primary focal (isolated cervical) dystonia. This significantly interferes with her activities. We discussed the treatment options and strategies including botulinum toxin, oral medications and physical therapy. Oral medications are unlikely to provide adequate benefits without causing significant side effects and botulinum toxin is the treatment of choice. She would be an excellent candidate for botulinum toxin injections and she wanted to proceed with this. The potential risks (including but not limited to bruising, hematoma, neck weakness, dysphagia, infection, and injection site pain etc.), benefits, alternatives to chemodenervation were discussed, she wanted to proceed with this, our office will work on the preauthorization. Given the complaints of neck pain and paresthesias in her fingers, subjective weakness and gait imbalance, will additionally evaluate this with imaging. There is only subtle evidence of parkinsonism at this time very commonly seen in the setting of ET; I told her that she does not have PD and the parkinsonism needs to be clinically monitored given the higher incidence of PD in the setting of ET. There has not been a significant subjective or objective worsening of her parkinsonism in the interim. Recommendations: 1. increase primidone as directed; side effects and strategies discussed. 2. Check MRI Brain and C-spine with/without contrast. 3. Refer to PT. 4. Please preauthorize Botox: 200 Units. 5. May consider discussing with prescribing physician about possible switch from metoprolol to propranolol. 6. continue daily stretching and exercises. My total encounter time on 04/05/2023 was 43 minutes, which was spent in the activities documented in the note. This includes time spent prior to the visit and after the visit in direct care of the patient. This time does not include any separately reportable services. Assessment & Plan (04/23/2022 7:32 AM ANGER CONTROL COUNSELOR): She has a longstanding history of kinetic tremor spanning several decades without a clear family history of ET and no clear benefits with alcohol; this is consistent with ET. The tremor has responded very well to primidone with significant improvement after the last uptitration of primidone and she is tolerating it well without any dose limiting side effects. She is satisfied with the current benefits and no change in her primidone dosage is warranted at this time. However, she still has mild tremor and it appears she started taking metoprolol (for other indications) about a month ago; she may discuss with her prescribing physician about transitioning to propranolol instead for better control of tremor. She had a rather sudden onset (2018) right hand rest tremor that was notable at the initial office visit for clear suggestibility, distractibility, entrainment and constantly varying frequency and amplitude along with gait that was consistent with astasia-abasia. 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 There is only subtle evidence of parkinsonism at this time very commonly seen in the setting of ET; I told her that she does not have PD and the parkinsonism needs to be clinically monitored given the higher incidence of PD in the setting of ET. There has been no subjective or objective worsening of her parkinsonism in the interim. Recommendations: 1. Same primidone as directed; side effects and strategies discussed. 2. May consider discussing with prescribing physician about possible switch from metoprolol to propranolol . 3. Consider PT for gait imbalance. 4. continue daily stretching and exercises. Assessment & Plan (04/22/2021 4:58 PM ANGER CONTROL COUNSELOR): She has a longstanding history of kinetic tremor spanning several decades without a clear family history of ET and no clear benefits with alcohol; this is consistent with ET. The tremor has responded very well to primidone with significant improvement after the last uptitration of primidone and she is tolerating it well without any dose limiting side effects. She is satisfied with the current benefits and no change in her primidone dosage is warranted at this time. She had a rather sudden onset (2018) right hand rest tremor that was notable at the initial office visit for clear suggestibility, distractibility, entrainment and constantly varying frequency and amplitude along with gait that was consistent with astasia-abasia. 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 There is only subtle evidence of parkinsonism at this time very commonly seen in the setting of ET; I told her that she does not have PD and the parkinsonism needs to be clinically monitored given the higher incidence of PD in the setting of ET. There has been no subjective or objective worsening of her parkinsonism in the interim. Recommendations: 1. Same primidone as directed; side effects and strategies discussed. 2. continue daily stretching and exercises. My total encounter time on 04/21/2021 was 43 minutes (face to face encounter: 4:33 PM - 5:13 PM), which was spent in the activities documented in the note. This includes time spent prior to the visit and after the visit in direct care of the patient. This time does not include any separately reportable services. Assessment & Plan (09/02/2020 1:43 PM CDT): She has a longstanding history of kinetic [...] I was located in my office at [address] [place] [address] and the patient was located at her home in [place]. The session started at 13:06 and ended [...] a telephone or video visit during the [facility] [place] [address] emergency. After being given an opportunity to [...] of care as documented in the note. Assessment & Plan (12/25/2019 8:40 PM CDT): She has a longstanding history of kinetic tremor spanning several decades without a clear family history of ET and no clear benefits with alcohol that was consistent with ET. This has responded very well to primidone and she is tolerating it well without any dose limiting side effects. She also had a more recent rather sudden onset (2018) right hand rest tremor that was notable at the initial office visit for clear suggestibility, distractibility, entrainment and constantly varying frequency and amplitude and that including her previously noted gait, consistent with astasia-abasia would make a psychogenic basis for the rest tremor and gait abnormality also feature in the differential. Of note, this tremor has improved significantly as well. There is only subtle evidence of parkinsonism at this time very commonly seen in the setting of ET; I told her that she does not have PD and the parkinsonism needs to be clinically monitored given the higher incidence of PD in the setting of ET. Of note, she has been taking topiramate [...] strategies were discussed in detail. Recommendations: 1. Same primidone. 2. Discuss topiramate dosing with prescribing physician. 3. continue daily stretching and exercises. Assessment & Plan (05/11/2019 1:58 PM ANGER CONTROL COUNSELOR): She has a longstanding history of kinetic tremor spanning several decades with a more recent rather sudden onset (2018) right hand rest tremor; without a clear family history of ET and no clear benefits with alcohol. Although she had a consistent asymmetric postural and action tremor, the rest tremor I evidenced today was notable for clear suggestibility, distractibility, entrainment and constantly varied in frequency and amplitude. The rest tremor was not clinically congruous with a classical tremor subtype; also her gait was highly suggestive of astasia-abasia. Given the constellation of clinical features, I feel she has underlying ET vs less likely exaggerated physiologic tremor with a functional overlay primarily manifest as the rest tremor which could well be psychogenic. Prior MRI was reportedly unremarkable; I have reviewed the referral records and this does not include the MRI report/image. There is only subtle evidence of parkinsonism at this time; I told her that she does not have PD and the parkinsonism needs to be clinically monitored given the higher incidence of PD in the setting of ET. Given the tremor is significantly interfering with her daily activities (inspite of current topiramate intake), it would be reasonable to initiate a trial of primidone (her underlying asthma and prior episodes of bronchitis, history of depression are relative contraindications for propranolol); side effects including drug interactions with centrally acting medications and alcohol and strategies were discussed in detail; I have also reiterated the rest tremor may not respond any to this. My interpretation of the neuropsychological testing is as follows: She has possibly some cognitive impairment as noted by MMSE of 29 and a borderline MoCA of 25, MoCA being a more sensitive test; will check reversible labs. She does not have any anxiety as noted by HADS anxiety score of 4, or any significant depression as highlighted by a borderline GDS of 5 and HADS depression score of 3. She has some RBD symptoms as noted by RBD screening score of 7, and mild excessive daytime sleepiness as reflected by [place] of 12, we discussed that this needs to be monitored with the uptitration of primidone. The RAND SF-36 score implies mild impairment of quality of life. Recommendations: 1. Start a gradual uptitration of primidone as directed; side effects and strategies discussed. 2. Check TSH, B12. 3. Send MRI Brain images for my review. 4. Continue daily stretching and exercises. Cognitive deficits 05/11/2019 Abnormal weight gain 07/03/2014 Depressive disorder 07/03/2014 Hyperlipidemia 06/05/2014 Vitamin D deficiency 06/05/2014 Cellulitis and abscess of buttock 10/29/2013 Acute bronchitis 08/27/2013 Asthma 05/30/2013 Allergic rhinitis 02/19/2013 Encounters Date Type Department Care Team Description 12/18/2024 9:15 AM CDT Procedure visit [facility] [address] [facility] [address] [place] [address] [place] [address] Azael Richard MD PhD Cervical dystonia (Primary Dx) 12/04/2024 3:00 PM CDT Office Visit [facility] [address] [place] [address] Azael Richard MD PhD Essential tremor (Primary Dx); Cervical dystonia from Last 3 Months Immunizations Immunization Administration Dates Next Due Influenza, Quadrivalent, Spl it, Preservative Free, Intramuscular 03/15/2020 Tdap 09/03/2015 Surgical History Surgery Date Site/Laterality Comments TONSILLECTOMY Tonsillectomy SHOULDER ARTHROSCOPY Left Arthroscopy shoulder SINUS SURGERY Medical History Medical History Date Comments Hx Other Medical Breast Augmenta tion Hx Other Medical Sinus Surgery Hx Other Medical Foot surgery Asthma Asthma Migraine Protrusion of cervical intervertebral disc 08/19 21 Cervical spondylosis Anxiety Chest pain Depression Kidney infection Sinusitis Family History Medical History Relation Name Comments Intracerebral hemorrhage Father Hyperlipidemia Mother Hypertension Mother Relation Name Status Comments Father Maternal Grandmother As per report, she was diagnosed with PD and AD at age 73 and at 79. Mother Social History Tobacco Use Types Packs/Day Years Used Date Smoking Tobacco: Never Tobacco Cessation:Counseling Given: Not Answered Alcohol Use Standard Drinks/Week Comments Yes 0 (1 standard drink = 0.6 oz pur e alcohol) AUDIT-C Answer Date Recorded Q1: How often do you have a drink containing alcohol? Never 08/08/2024 Q2: How many drinks containi ng alcohol do you have on a typical day when you are drinking? Patient does not drink Q3: How often do you have si x or more drinks on one occasion? Never 08/08/2024 Comments No Sex and Gender Information Value Date Recorded Sex Assigned at Not on file Legal Sex Female 3:20 AM ANGER CONTROL COUNSELOR Gender Identity Female 01/07/2021 4:33 PM CDT Sexual Orientation Straight 01/07/2021 4: 33 PM CDT Obstetrics History Last Filed Vital Signs Vital Sign Reading Time Taken Comments Blood Pressure 119/80 12/04/2024 2:57 PM CDT Pulse 84 12/04/2024 2:57 PM CDT Temperature 36.3 C (97.3 F) 10/04/2023 2:04 PM CDT Respiratory Rate - - Oxygen Saturation 96% 08/08/2024 12:57 PM CDT Inhaled Oxygen Concentration - - Weight 66.7 kg (147 lb) 12/04/2024 2:57 PM CDT Height 162.6 cm (5' 4) 12/04/2024 2:57 PM CDT Body Mass Index 25.23 12/04/2024 2:57 PM CDT Plan of Treatment Health Maintenance Due Date Last Done Comments Breast Cancer Screening-Mammogram 1965 Cervical Cancer Screening 1965 Colon Cancer Screening-Colonoscopy 1965 Hepatitis C Screening 1965 Hepatitis B Screening 12/02/1983 Regular Well Visit/Exam 18-64 12/02/1983 Pneumococcal vaccine <65 (1 of 2 - PCV) 1984 Zoster Vaccine (1 of 2) 12/02/2015 Depression Screening 05/09/2020 05/09/2019 Influenza Vaccine (#1) 2024 03/15/2020 DTaP/Tdap/Td Vaccine (2 - Td or Tdap) 09/02/202508/2015 Insurance [facility] [employer] MEDICARE [facility] IDPA Care Teams Photographic Printer Relationship Specialty Start Date End Date Landon Aranda MD PCP - General 02/22/14
--- OUTSIDE RECORDS SUMMARY | 2024-12-21 10:19 | XMS_ITS | Clinical Summary ---
Author Organization [facility] Address [address] [place] [address] Phone Care Team Providers Care Hand Twister Name Role Phone Landon Aranda MD Primary Care Provider [phone] Allergies Active Allergy Reactions Criticality Noted Date Comments Egg Nausea and Vomiting Low 05/09/2019 Sulfa (Sulfonamide Antibiotics) Swelling High 08/2019 Unclassified Drug Rash Low 07/05/2019 Medications topiramate (TOPAMAX ORAL) Take 300 mg by mouth 2 times daily. Active atorvastatin calcium (ATORVASTATIN ORAL) Take by mouth. Activ e montelukast (SINGULAIR) 10 mg tablet Take 10 mg by mouth daily at bedtime. Active levocetirizine (Xyzal) 5 mg tablet Take 5 mg by mouth late in the day. Active albuterol HFA 90 mcg inhaler Take 2 Puffs by inhalation every 6 hours as needed for Shortness of Breath. Active ALPRAZolam (XANAX) 0.5 mg tablet Take 0.5 mg by mouth. Active cetirizine (ZyrTEC) 10 mg tablet Take 10 mg by mouth. Active Flovent HFA 110 mcg/actuation HFA Aerosol Inhaler TAKE 1 PUFF BY MOUTH TWICE A DAY 1 Active Active Problems Problem Noted Date Diagnosed Date Breast implant rupture Encounters Date Type Department Care Team Description 11/20/2024 External Device Data [facility] ABSTRACTION Provider, Abstract 11/20/2024 External Device Data [facility] ABSTRACTION Provider, Abstract 11/20/2024 External Device Data [facility] ABSTRACTION Provider, Abstract 11/14/2024 External Device Data [facility] ABSTRACTION Provider, Abstract 11/13/2024 External Device Data ST[facility] ABSTRACTION Provider, Abstract 10/16/2024 External Device Data [facility] ABSTRACTION Provider, Abstract 09/20/2024 External Device Data ST[facility] ABSTRACTION Provider, Abstract from Last 3 Months Social History Tobacco Use Types Packs/Day Years Used Date Smoking Tobacco: Never Smokeless Tobacco: Never Alcohol Use Standard Drinks/Week Comments Yes 0 (1 standard drink = 0.6 oz pur e alcohol) social Comments Unknown Sex and Gender Information Value Date Recorded Sex Assigned at Not on file Legal Sex Female 2:44 PM EMBROIDERY MACHINE OPERATOR Gender Identity Not on file Sexual Orientation Not on file Last Filed Vital Signs Vital Sign Reading Time Taken Comments Blood Pressure 135/93 06/02/2020 9:22 AM EMBROIDERY MACHINE OPERATOR Pulse 88 11/14/2019 4:20 PM CDT Temperature 36.7 C (98 F) 11/14/2019 2:14 PM CDT Respiratory Rate 19 11/14/2019 4:20 PM CDT Oxygen Saturation 98% 11/14/2019 4:20 PM CDT Inhaled Oxygen Concentration - - Weight 77.1 kg (170 lb) 06/02/2020 9:22 AM EMBROIDERY MACHINE OPERATOR Height 165.1 cm (5' 5) 06/02/2020 9:22 AM EMBROIDERY MACHINE OPERATOR Body Mass Index 28.29 06/02/2020 9:22 AM EMBROIDERY MACHINE OPERATOR Plan of Treatment Health Maintenance Due Date Last Done Comments DTAP/TDAP/TD VACCINES (1 - Tdap) 1984 HEPATITIS B VACCINES (1 of 3 - 19+ 3-dose series) 06/1984 HPV/Cotest (21-29) 1986 CERVICAL CANCER SCREENING 12/02/1995 HPV/Cotest (30-65) 12/02/1995 PAP SMEAR 12/02/1995 BREAST CANCER SCREENING 2005 COLORECTAL SCREENING 2010 Colorectal Cancer Screening 2010 FIT-DNA Q 3 years 2010 FIT/FOBT Q 1 year 2010 Flex Sig/CT Colonography Q 5 years 2010 ZOSTER VACCINE (1 of 2) 12/02/2015 INFLUENZA VACCINE (#1) 2024 Medical Devices Explanted Type Area Home Administrator Device Identifier Shelf Expiration Date Model / Serial / Lot Breast Implants Explanted:Qty: 1 on 11/14/2019 by Davin Bowden [place] [facility] [place]: Breast Description:Dr Bowden exp lanted bilateral implants. NO IMPLANT INFORMATION AVAILABLE Insurance BLUE ACCESS CHOICE [employer] (INTERNAL) [facility] [employer] RX [employer] Express Advance Directives For more information, please contact: [phone] * Full Code (Latest Code Status on File) Date Activated Date Inactivated Comments 11/14/2019 7:58 AM 11/14/2019 6:43 PM Care Teams Hand Twister Relationship Specialty Start Date End Date Landon Aranda MD [address] [place], [place] [address] [address] PCP - General Family Practice 07/05/19
--- NOTE | 2024-12-21 10:28 | ECG_ITS ---
Test Date: 2024-12-21 10:38:47 Measurements Intervals [place] Rate: 82 P: 54 CT: 172 QRS: 46 QRSD: 97 T: 51 QT: 378 QTc: 442 Interpretive Statements SINUS RHYTHM INCOMPLETE RIGHT BUNDLE BRANCH BLOCK BORDERLINE ST-T WAVE ABNORMALITY- DIFFUSE LEADS BASELINE ARTIFACT- II, III, AVR, AVL, AVF BORDERLINE ECG No previous ECG available for comparison Electronically Signed On 12-21-2024 10:51:42 CDT by Agustin Gutierrez D.O.
== END 2024-12-21 10:14 | disposition home or self-care (01) ==
PROVIDERS: PCP Emergency Medicine; Visit Provider Anesthesiology
DX: I47.10 Supraventricular tachycardia, unspecified (principal); E78.5 Hyperlipidemia, unspecified; I45.10 Unspecified right bundle-branch block
CPT/HCPCS: 93005

== ENCOUNTER 2024-12-27 07:58 | Day surgery (SDC) | payer MEDICARE, SELFPAY ==
--- OUTSIDE RECORDS SUMMARY | 2024-03-16 04:45 | XMS_ITS ---
Author Organization [facility] thalia Address [address] [place] [address] Care Team Providers Care Filter Cleaner Name Role Phone Manoj NAYLOR, Landon Primary Care Provider Martha Negron [phone] REASON FOR VISIT yd/3 month follow up/flc Encounters Encounter Location Date Provider Diagnosis [facility] [address] [place] [address] 03/16/2024 Martha Styles Plan Of Treatment No Information Progress Notes * Lisset SZYMANSKIB:1965 ( 59 yo Other)Acc No.[id number]:03/16/2024 Progress Notes Patient: Ivis SHRESTHA Appointment Provider: Eugenia STYLES MD :1965 A ge:58 Y S ex:Unknown Date:03/16/2024 Address:[address] [place] [address] Pcp:Landon Aranda MD Subjective: * Chief Complaints: * 1 . Yd/3 month follow up/flc. * Medical History: Objective: * Vitals: Assessment: Plan: * Treatment: * Billing Information: * Visit Code: * Procedure Codes: * Electronic signature of Martha Styles MD on 12/27/2024 at 08:02 AM CDT Sign off status: Pending * Appointment Provider: Eugenia STYLES MD Date: 05/16/2023 Generated for Printi ng/Faxing/eTransmitting on: 0 12/27/2024 08:02 AM CDT
[2024-12-12 10:50] VITALS: BMI 24.2
--- OUTSIDE RECORDS SUMMARY | 2024-12-20 04:05 | XMS_ITS | Continuity of Care Document ---
Author Organization [facility] Address [address] [place] [address] [place] [address] Phone Care Team Providers Care Sap Project Manager Name Role Phone Landon Aranda MD Unavailable Unavailable Allergies, Adverse Reactions, Alerts Substance Reaction Status Criticality adhesive Active No Information Sulfa (Sulfonamide Antibiotics) Active No Information Medications Medication Instructions Dosage Effective Dates (start - stop) Status Comments Percocet 7.5 mg-325 mg tablet take 1 tablet by oral route every 6 hours as needed as needed 1.00 tablet - Active PRN for pain, avoid driving or operate machines pramipexole 1 mg tablet take 1 tablet by oral route BID - Active avoid driving or operate machines Topamax 200 mg tablet take 1 tablet by oral route 2 times every day 200 MG - Active Abilify 15 mg tablet take 1 tablet by oral route every day 15 MG - Active Lipitor 20 mg tablet take 1 Tablet by oral route every day 20 MG - Active Cymbalta 60 mg capsule,delayed release take 1 capsule by oral route every day - Active Aimovig Autoinjector 140 mg/mL subcutaneous auto-injector inject (140MG) by subcutaneous route every month in the abdomen, thigh, or outer area of upper arm 140 MG - Active Ubrelvy 50 mg tablet take 1 tablet by oral route once may repeat dose once after 2 hours if needed 50 MG - Active Singulair 10 mg tablet take 1 tablet by oral route every day in the evening 10 MG - Active Neurontin 600 mg tablet take 1 tablet by oral route 3 times every day 600 MG - Active Vitamin D2 1,250 mcg (50,000 unit) capsule take one capsule orally once per week - Active Topamax 200 mg tablet take 1.5 tablet by oral route 2 times every day 300 MG - Active albuterol sulfate HFA 90 mcg/actuation aerosol inhaler inhale 1 puff by inhalation route every 4 - 6 hours as needed as needed 1 puff - Active PRN for sob Toprol XL 25 mg tablet,extended release take 0.5 tablet by oral route every day 12.5 MG - Active fluticasone propionate 50 mcg/actuation nasal spray,suspension inhale 2 spray by intranasal route every day in each nostril 100 MCG - Active primidone 50 mg tablet take 1 tablet by oral route every day 50 MG - Active Procedures Procedure Date OFFICE/OUTPATIENT VISIT, EST OFFICE/OUTPATIENT VISIT, EST OFFICE/OUTPATIENT VISIT, EST OFFICE/OUTPATIENT VISIT, EST PREV VISIT, EST, AGE 40-64 OFFICE/OUTPATIENT VISIT, EST OFFICE/OUTPATIENT VISIT, EST OFFICE/OUTPATIENT VISIT, EST OFFICE/OUTPATIENT VISIT, EST OFFICE/OUTPATIENT VISIT, EST OFFICE/OUTPATIENT VISIT, EST OFFICE/OUTPATIENT VISIT, EST PREV VISIT, EST, AGE 40-64 OFFICE/OUTPATIENT VISIT, EST OFFICE/OUTPATIENT VISIT, EST OFFICE/OUTPATIENT VISIT, EST OFFICE/OUTPATIENT VISIT, EST PREV VISIT, EST, AGE 40-64 OFFICE/OUTPATIENT VISIT, EST OFFICE/OUTPATIENT VISIT, EST OFFICE/OUTPATIENT VISIT, EST OFFICE/OUTPATIENT VISIT, EST OFFICE/OUTPATIENT VISIT, EST PREV VISIT, EST, AGE 40-64 OFFICE/OUTPATIENT VISIT, EST OFFICE/OUTPATIENT VISIT, EST OFFICE/OUTPATIENT VISIT, EST OFFICE/OUTPATIENT VISIT, EST PREV VISIT, EST, AGE 40-64 OFFICE/OUTPATIENT VISIT, EST OFFICE/OUTPATIENT VISIT, EST OFFICE/OUTPATIENT VISIT, EST OFFICE/OUTPATIENT VISIT, EST OFFICE/OUTPATIENT VISIT, EST PREV VISIT, EST, AGE 40-64 OFFICE/OUTPATIENT VISIT, EST OFFICE/OUTPATIENT VISIT, EST OFFICE/OUTPATIENT VISIT, EST OFFICE/OUTPATIENT VISIT, EST PREV VISIT, EST, AGE 40-64 OFFICE/OUTPATIENT VISIT, EST OFFICE/OUTPATIENT VISIT, EST OFFICE/OUTPATIENT VISIT, EST PREV VISIT, EST, AGE 40-64 OFFICE/OUTPATIENT VISIT, EST OFFICE/OUTPATIENT VISIT, EST OFFICE/OUTPATIENT VISIT, EST OFFICE/OUTPATIENT VISIT, EST PREV VISIT, EST, AGE 40-64 OFFICE/OUTPATIENT VISIT, EST OFFICE/OUTPATIENT VISIT, EST OFFICE/OUTPATIENT VISIT, EST OFFICE/OUTPATIENT VISIT, EST PREV VISIT, EST, AGE 40-64 OFFICE/OUTPATIENT VISIT, EST OFFICE/OUTPATIENT VISIT, EST OFFICE/OUTPATIENT VISIT, EST OFFICE/OUTPATIENT VISIT, EST OFFICE/OUTPATIENT VISIT, EST PREV VISIT, EST, AGE 40-64 OFFICE/OUTPATIENT VISIT, EST OFFICE/OUTPATIENT VISIT, NEW Advance Directives Directive Yes / No Effective Date File Name No Information Encounters Encounter Description Practice Location Reason(s) For Visit Diagnoses Date Provider Providers Copied on Encounter OFFICE/OUTPA TIENT VISIT, [facility], [place], [facility], [address], [place], [place], [address], [place] tel:[phone] [facility] tremor1 (chief complaint)m igraine1 (chief complaint) Essential tremorMigraine w/o aura, not intractable, w/o status migrainosus 5 Manoj Navarrete. [address], [place], [place], [address] , [place]. tel:[phone] OFFICE/OUTPA TIENT VISIT, [facility] [place], [address], [place], [place], [address], [place] tel:[phone] [facility] tremor1 (chief complaint)m igraine1 (chief complaint) Essential tremorMigraine w/o aura, not intractable, w/o status migrainosus 5 Manoj Navarrete. [address], [place], [place], [address] , [place]. tel:[phone] OFFICE/OUTPA TIENT VISIT, [facility] [place], [address], [place], [place], [address], [place] tel:[phone] [facility] anxiety1 (chief complaint)m igraine1 (chief complaint)t remor1 (chief complaint)f inger1 (chief complaint) Essential tremorGeneralized anxiety disorderMigraine w/o aura, not intractable, w/o status migrainosusPalmar fascial fibromatosis [Dupuytren] 5 Manoj Navarrete. [address], [place], [place], [address] , [place]. tel:[phone] OFFICE/OUTPA TIENT VISIT, [facility] [place], [address] [place], [address], [place] tel:[phone] [facility] anxiety1 (chief complaint)t remor1 (chief complaint)m igraine1 (chief complaint) Essential tremorGeneralized anxiety disorderMigraine w/o aura, not intractable, w/o status migrainosus 5 Manoj Navarrete. [address], [place], [place], [address] , [place]. [phone] PREV VISIT, EST, AGE 40-64 [facility], [address], [place], [place], [address], [place] tel:[phone] [facility] physical (chief complaint) Encounter for general adult medical examination without abnormal findings 5 Manoj Navarrete. [address], [place], [place], [address] , [place]. tel:[phone] OFFICE/OUTPA TIENT VISIT, EST [facility], [address], [place], [place], [address], [place] tel:[phone] [facility] headache1 (chief complaint) Migraine w/o aura, intractable, without status migrainosus 5 Manoj Navarrete. [address], [place], [place], [address] , [place]. [phone] OFFICE/OUTPA TIENT VISIT, EST [facility], [address], [place], [place], [address], [place] tel:[phone] [facility] fibromyalgi a1 (chief complaint)h eadache1 (chief complaint)a nxiety1 (chief complaint) FibromyalgiaMigrai ne w/o aura, intractable, without status migrainosusGeneral ized anxiety disorder 4 Manoj Navarrete. [address], [place], [place], [address] , [place]. tel:[phone] OFFICE/OUTPA TIENT VISIT, EST [facility], [address], [place], [place], [address], [place] tel:[phone] [facility] headache1 (chief complaint)t ermor1 (chief complaint)s inus1 (chief complaint) Acute sinusitisMigraine w/o aura, intractable, without status migrainosusTremor 4 Manoj Navarrete. [address], [place], [place], [address] , [place]. tel:[phone] OFFICE/OUTPA TIENT VISIT, [facility] [place], [address], [place], [place], [address], [place] tel:[phone] [facility] migraine1 (chief complaint) Migraine w/o aura, intractable, without status migrainosusEssenti al tremorOther malformations of cerebral vessels 4 Manoj Navarrete. [address], [place], [place], [address] , [place]. tel:[phone] OFFICE/OUTPA TIENT VISIT, [facility] [place], [address] [place], [address], [place] tel:[phone] [facility] migraine1 (chief complaint) Migraine w/o aura, intractable, without status migrainosus 4 Manoj Navarrete. [address], [place], [place], [address] , [place]. tel:[phone] OFFICE/OUTPA TIENT VISIT, [facility] [place], [address], [place], [place], [address], [place] tel:[phone] [facility] migraine1 (chief complaint)t remor1 (chief complaint)j oint pain1 (chief complaint) Essential tremorMigraine w/o aura, intractable, without status migrainosusFibromy algia 4 Manoj Navarrete. [address], [place], [place], [address] , [place]. tel:[phone] OFFICE/OUTPA TIENT VISIT, [facility] [place], [address], [place], [place], [address], [place] tel:[phone] [facility] headache1 (chief complaint)H LP (chief complaint)t remor1 (chief complaint) Essential tremorMigraine w/o aura, intractable, without status migrainosusMixed hyperlipidemia 4 Manoj Navarrete. [address], [place], [place], [address] , [place]. tel:[phone] PREV VISIT, EST, AGE 40-64 [facility], [address], [place], [place], [address], [place] tel:[phone] [facility] physical (chief complaint) Encounter for general adult medical exam w abnormal findingsMigraine w/o aura, not intractable, w/o status migrainosusOther malformations of cerebral vesselsEssential tremorOther speech disturbancesMixed hyperlipidemiaFibr omyalgiaGeneralize d anxiety disorderPalpitatio ns Sean- 4 Manoj Floyd [address], [place], [place], [address] , [place]. tel:[phone] Referring Provider: Son Crum [facility] [address], [place], [place], [address]. tel:[phone] OFFICE/OUTPA TIENT VISIT, EST [facility], [address], [place], [place], [address], [place] tel:[phone] [facility] brain CA (chief complaint)f ibromyalgia 1 (chief complaint)H LP (chief complaint)o steopenia1 (chief complaint) FibromyalgiaMixed hyperlipidemiaMigr vahid w/o aura, not intractable, w/o status migrainosusGeneral ized anxiety disorderTremorMild intermittent asthma, uncomplicatedOther specified disorder of bone density 4 Manoj Floyd [address], [place], [place], [address] , [place]. tel:[phone] Referring Provider: Son Crum [address], [place], [place], [address]. tel:[phone] OFFICE/OUTPA TIENT VISIT, EST [facility], [address] [place], [address], [place] tel:[phone] [facility] COVID1 (chief complaint)j oint pain1 (chief complaint) Viral infectionPain in jointRaised antibody titerOth disrd of bone density and structure, unspecified site Dec- 3 Manoj Floyd [address], [place], [place], [address] , [place]. tel:[phone] Referring Provider: Son Crum [address], [place], [place], [address]. tel:[phone] OFFICE/OUTPA TIENT VISIT, EST [facility], [address], [place], [place], [address], [place] tel:[phone] [facility] Medicine HLP (chief complaint)L ow D (chief complaint)s ick (chief complaint)j oint pain1 (chief complaint) Acute bronchitisPain in jointMixed hyperlipidemiaOth disrd of bone density and structure, unspecified site Sep-0 3 Manoj Navarrete. [address] [facility] [address], [place], [place], [address] , [place]. tel:[phone] Referring Provider: Son Crum [facility] A, [place], [place], [address]. tel:[phone] PREV VISIT, EST, AGE 40-64 [facility], [address], [place], [place], [address], [place] tel:[phone] [facility] physical (chief complaint) Encounter for general adult medical exam w abnormal findingsAcute sinusitisMild intermittent asthma, uncomplicatedMixed hyperlipidemiaGene ralized Anxiety DisorderPalpitatio nsMigraine w/o aura, not intractable, w/o status migrainosus 3 Manoj Navarrete. [address], [place], [place], [address] , [place]. tel:[phone] Referring Provider: Son Crum [address], [place], [place], [address]. tel:[phone] OFFICE/OUTPA TIENT VISIT, EST [facility], [address] [place], [address], [place] tel:[phone] [facility] anxiety1 (chief complaint)p alpitation1 (chief complaint)w eight gain1 (chief complaint) PalpitationsGenera lized anxiety disorderAbnormal weight gain Dec- 2 Manoj Floyd [address], [place], [place], [address] , [place]. tel:[phone] Referring Provider: Landon Aranda, [address], [place], [place], [address]. tel:[phone] OFFICE/OUTPA TIENT VISIT, [facility] [place], [address], [place], [place], [address], [place] tel:[phone] [facility] Medicine scabie1 (chief complaint)s ick1 (chief complaint) ScabiesAcute bronchitis 2 Manoj Navarrete. [address], [place], [place], [address] , [place]. tel:[phone] Referring Provider: Landon Aranda, [address], [place], [place], [address]. tel:[phone] OFFICE/OUTPA TIENT VISIT, [facility] [place], [address], [place], [place], [address], [place] tel:[phone] [facility] itching1 (chief complaint) Scabies 2 Manoj Navarrete. [address], [place], [place], [address] , [place]. tel:[phone] Referring Provider: Landon Aranda, [address], [place], [place], [address]. tel:[phone] OFFICE/OUTPA TIENT VISIT, [facility] [place], [address], [place], [place], [address], [place] tel:[phone] [facility] Medicine sick1 (chief complaint) Acute bronchitis 2 Manoj Navarrete. [address], [place], [place], [address] , [place]. tel:[phone] Referring Provider: Landon Aranda, [address], [place], [place], [address]. tel:[phone] PREV VISIT, EST, AGE 40-64 [facility], [address], [place], [place], [address], [place] tel:[phone] [facility] physical (chief complaint) Encounter for general adult medical exam w abnormal findingsGeneralize d anxiety disorderMigraineTr emorAbnormal weight gainAsthmaAcute pharyngitisHyperli pidemia 2 Manoj Floyd [address], [place], [place], [address] , [place]. tel:[phone] Referring Provider: Son Crum [address], [place], [place], [address]. tel:[phone] OFFICE/OUTPA TIENT VISIT, [facility] [place], [address], [place], [place], [address], [place] tel:[phone] [facility] knee pain1 (chief complaint)a nxiety1 (chief complaint)a llergy1 (chief complaint)H LP (chief complaint) Generalized anxiety disorderHyperlipid emiaPain in unspecified kneeAsthma 1 Manoj Floyd [address], [place], [place], [address] , [place]. tel:[phone] Referring Provider: Son Crum [address], [place], [place], [address]. tel:[phone] OFFICE/OUTPA TIENT VISIT, [facility] [place], [address] [place], [address], [place] tel:[phone] [facility] skin1 (chief complaint)G ERD1 (chief complaint)a nxiety1 (chief complaint)w eight1 (chief complaint) GERD w/o esophagitisGeneral ized anxiety disorderAbnormal weight gainNevus, non-neoplasticActi thalia keratosis 1 Manoj Floyd [address], [place], [place], [address] , [place]. tel:[phone] Referring Provider: Son Crum [address], [place], [place], [address]. tel:[phone] OFFICE/OUTPA TIENT VISIT, [facility] [place], [address], [place], [place], [address], [place] tel:[phone] [facility] shoulder pain1 (chief complaint)s tomach (chief complaint)s inus1 (chief complaint)a nxiety1 (chief complaint)H LP (chief complaint) HyperlipidemiaAcut e sinusitisGeneraliz ed anxiety disorderGERD w/o esophagitisPain in right shoulder Sean- 1 Manoj Floyd [address], [place], [place], [address] , [place]. tel:[phone] Referring Provider: Son Crum [address], [place], [place], [address]. tel:[phone] PREV VISIT, EST, AGE 40-64 [facility], [address], [place], [place], [address], [place] tel:[phone] [facility] physical (chief complaint) Encounter for general adult medical exam w abnormal findingsAsthmaTrem orGeneralized anxiety disorderHyperlipid emia 1 Manoj Floyd [address], [place], [place], [address] , [place]. tel:[phone] Referring Provider: Son Crum [address], [place], [place], [address]. tel:[phone] OFFICE/OUTPA TIENT VISIT, [facility] [place], [address], [place], [place], [address], [place] tel:[phone] [facility] anxiety1 (chief complaint)w eight gain1 (chief complaint)v iral (chief complaint)c olon polyp1 (chief complaint) Polyp of colonHyperlipidemi aViral infectionAbnormal weight gainGeneralized anxiety disorder Sep-0 0 Manoj Floyd [address], [place], [place], [address] , [place]. tel:[phone] Referring Provider: Son Crum [address], [place], [place], [address]. tel:[phone] OFFICE/OUTPA TIENT VISIT, [facility] [place], [address], [place], [place], [address], [place] tel:[phone] [facility] cough1 (chief complaint) Acute bronchitisAsthma 0 Manoj Navarrete. [address], [place], [place], [address] , [place]. tel:[phone] Referring Provider: Son Crum [address], [place], [place], [address]. tel:[phone] OFFICE/OUTPA TIENT VISIT, [facility] [place], [address], [place], [place], [address], [place] tel:[phone] [facility] sick (chief complaint) Acute bronchitis 0 Manoj Navarrete. [address], [place], [place], [address] , [place]. [phone] Referring Provider: Son Crum [address], [place], [place], [address]. tel:[phone] OFFICE/OUTPA TIENT VISIT, [facility] [place], [address], [place], [place], [address], [place] tel:[phone] [facility] Medicine cough1 (chief complaint) Acute bronchitisAsthmaVi ral infection 0 Manoj Navarrete. [address], [place], [place], [address] , [place]. tel:[phone] Referring Provider: Son Crum [address], [place], [place], [address]. tel:[phone] PREV VISIT, EST, AGE 40-64 [facility], [address], [place], [place], [address], [place] tel:[phone] [facility] Physical (chief complaint) Encounter for general adult medical exam w abnormal findingsHyperlipid emiaTremorGenerali zed anxiety disorderPolyp of colon May- 0 Manoj Navarrete. [address], [place], [place], [address] , [place]. [phone] Referring Provider: Son Crum [address], [place], [place], [address]. tel:[phone] OFFICE/OUTPA TIENT VISIT, EST [facility], [address], [place], [place], [address], [place] tel:[phone] [facility] UTI1 (chief complaint)a nxiety1 (chief complaint)w eight gain1 (chief complaint) Abnormal weight gainGeneralized anxiety disorderUrinary tract infection 9 Manoj Navarrete. [address], [place], [place], [address] , [place]. tel:[phone] Referring Provider: Son Crum [address], [place], [place], [address]. tel:[phone] OFFICE/OUTPA TIENT VISIT, [facility] [place], [address], [place], [place], [address], [place] tel:[phone] [facility] tremor1 (chief complaint)w eight (chief complaint) TremorAbnormal weight gain 9 Manoj Navarrete. [address], [place], [place], [address] , [place]. tel:[phone] Referring Provider: Son Crum [address], [place], [place], [address]. tel:[phone] OFFICE/OUTPA TIENT VISIT, [facility] [place], [address], [place], [place], [address], [place] tel:[phone] [facility] tremor1 (chief complaint)s ick1 (chief complaint)r ight heel (chief complaint) TremorPlantar fascial fibromatosisAcute bronchitis 0 9 Manoj Navarrete. [address], [place], [place], [address] , [place]. tel:[phone] Referring Provider: Son Crum [address], [place], [place], [address]. tel:[phone] PREV VISIT, EST, AGE 40-64 [facility], [address], [place], [place], [address], [place] tel:[phone] [facility] PHysical (chief complaint) TremorHyperlipidem iaGeneralized anxiety disorderAllergic rhinitisEncounter for general adult medical exam w abnormal findings 9 Manoj Navarrete. [address], [place], [place], [address] , [place]. tel:[phone] Referring Provider: Landon Aranda, [address], [place], [place], [address]. tel:[phone] OFFICE/OUTPA TIENT VISIT, EST [facility], [address], [place], [place], [address], [place] tel:[phone] [facility] Medicine HLP (chief complaint)l ow D (chief complaint)w eight gain1 (chief complaint)a nxiety1 (chief complaint)m idback pain1 (chief complaint) HyperlipidemiaAbno rmal weight gainGeneralized Anxiety DisorderLumbagoVit reyes D deficiency, unspecified 8 Manoj Navarrete. [address], [place], [place], [address] , [place]. tel:[phone] Referring Provider: Son Crum [address], [place], [place], [address]. tel:[phone] OFFICE/OUTPA TIENT VISIT, EST [facility], [address], [place], [place], [address], [place] tel:[phone] [facility] HLP (chief complaint)a nxiety1 (chief complaint)s inus allergy1 (chief complaint)w eight1 (chief complaint) Body mass index (BMI) 28.0-28.9, adultAllergic rhinitisHyperlipid emiaGeneralized anxiety disorder 8 Manoj Navarrete. [address], [place], [place], [address] , [place]. tel:[phone] Referring Provider: Son Crum [address], [place], [place], [address]. tel:[phone] PREV VISIT, EST, AGE 40-64 [facility], [address], [place], [place], [address], [place] tel:[phone] [facility] PHysical (chief complaint) Encounter for general adult medical exam w abnormal findingsHyperlipid emiaAllergic rhinitisAbnormal weight gain 8 Manoj Navarrete. [address], [place], [place], [address] , [place]. tel:[phone] Referring Provider: Son Crum [address], [place], [place], [address]. tel:[phone] OFFICE/OUTPA TIENT VISIT, [facility] [place], [address], [place], [place], [address], [place] tel:[phone] [facility] HLP (chief complaint)w eight1 (chief complaint)v itmain D (chief complaint) HyperlipidemiaAbno rmal weight gainVitamin D deficiency, unspecified 7 Manoj Floyd [address], [place], [place], [address] , [place]. tel:[phone] Referring Provider: Son Crum [address], [place], [place], [address]. tel:[phone] OFFICE/OUTPA TIENT VISIT, [facility] [place], [address], [place], [place], [address], [place] tel:[phone] [facility] sinus allergy1 (chief complaint)a nxiety1 (chief complaint)w eight gain1 (chief complaint) Abnormal weight gainGeneralized anxiety disorderAllergic rhinitis 7 Manoj Floyd [address], [place], [place], [address] , [place]. tel:[phone] Referring Provider: Son [address], [place], [place], [address]. tel:[phone] OFFICE/OUTPA TIENT VISIT, [facility], [place], operated by [facility], [address], [place], [place], [address], [place] tel:[phone] [facility] Anxiety1 (chief complaint) InsomniaGeneralize d anxiety disorder [address], [place], [place], [address] , [place]. [phone] Referring Provider: Son Crum, [place], [place], [address]. tel:[phone] PREV VISIT, EST, AGE 40-64 [facility], [address], [place], [place], [address], [place] tel:[phone] [facility] PHysical (chief complaint) Encounter for general adult medical exam w abnormal findingsGeneralize d anxiety disorderAbnormal weight lossDeformity of reconstructed breast Jun-0 6 Manoj Floyd [address], [place], [place], [address] , [place]. tel:[phone] Referring Provider: Son Crum [facility], [place], [place], [address]. tel:[phone] OFFICE/OUTPA TIENT VISIT, EST [facility], [address], [place], [place], [address], [place] tel:[phone] [facility] anxiety1 (chief complaint)a llergy1 (chief complaint)H LP (chief complaint)o verweight1 (chief complaint) Mixed hyperlipidemiaAlle rgic rhinitisAbnormal weight gainGeneralized anxiety disorder Dec-0 5 Man[address], [place], [place], [address] , [place]. [phone] Referring Provider: Son [address], [place], [place], [address]. tel:[phone] OFFICE/OUTPA TIENT VISIT, EST [facility], [address], [place], [place], [address], [place] tel:[phone] [facility] weight loss (chief complaint)H LP (chief complaint)d epression (chief complaint) Other and unspecified hyperlipidemiaAbno rmal weight gainMajor depressive disorder, single episode, mild degree Sean-0 5 Manoj Floyd [address], [place], [place], [address] , [place]. [phone] Referring Provider: Son [address], [place], [place], [address]. tel:[phone] OFFICE/OUTPA TIENT VISIT, EST [facility], [address], [place], [place], [address], [place] [phone] [facility] Medicine weight gain (chief complaint)a nxiety (chief complaint) Dietary surveillance and counselingAbnormal weight gainDepressionBrea st screening, unspecified Jun- 5 Manoj Navarrete. [address], [place], [place], [address] , [place]. [phone] Referring Provider: Son [address]rum [address], [place], [place], [address]. tel:[phone] PREV VISIT, EST, AGE 40-64 [facility], [address], [place], [place], [address], [place] [phone] [facility] Medicine Physical (chief complaint) Dietary surveillance and counselingRoutine Medical ExamAllergic rhinitis, cause unspecifiedOther and unspecified hyperlipidemiaUnsp ecified vitamin d deficiencyRoutine Medical Exam 5 Manoj Navarrete. [address], [place], [place], [address] , [place]. [phone] Referring Provider: Son [address]rum [address], [place], [place], [address]. tel:[phone] OFFICE/OUTPA TIENT VISIT, EST [facility], [address], [place], [place], [address], [place] [phone] [facility] Medicine shoulder pain (chief complaint)a bscess (chief complaint) Pain in joint involving shoulder regionCervicalgiaC ellulitis and abscess of buttockDietary surveillance and counseling 4 Manoj Navarrete. [address], [place], [place], [address] , [place]. [phone] Referring Provider: Son Crum [address], [place], [place], [address]. tel:[phone] OFFICE/OUTPA TIENT VISIT, EST [facility], [address], [place], [place], [address], [place] tel:[phone] [facility] abscess (chief complaint) Cellulitis and abscess of buttock Sean-3 0 4 Manoj Navarrete. [address], [place], [place], [address] , [place]. tel:[phone] Referring Provider: Landon Aranda, [address], [place], [place], [address]. tel:[phone] OFFICE/OUTPA TIENT VISIT, EST [facility], [address], [place], [place], [address], [place] tel:[phone] [facility] bronchitis (chief complaint) Dietary surveillance and counselingBronchit is, Acute 4 Manoj Navarrete. [address], [place], [place], [address] , [place]. tel:[phone] Referring Provider: Landon Aranda [address], [place], [place], [address]. tel:[phone] OFFICE/OUTPA TIENT VISIT, EST [facility], [address], [place], [place], [address], [place] tel:[phone] [facility] neck pain (chief complaint) CervicalgiaDietary surveillance and counseling 4 Manoj Navarrete. [address], [place], [place], [address] , [place]. tel:[phone] Referring Provider: Landon Aranda [address], [place], [place], [address]. tel:[phone] PREV VISIT, EST, AGE 40-64 [facility], [address], [place], [place], [address], [place] tel:[phone] [facility] Physical (chief complaint) Dietary surveillance and counselingRoutine Medical ExamAsthmaCervical giaAllergic rhinitis, cause unspecifiedRoutine Medical Exam 4 Manoj Navarrete. [address], [place], [place], [address] , . [phone] Referring Provider: Landon Aranda, [address], [place], [place], [address]. tel:[phone] OFFICE/OUTPA TIENT VISIT, [facility], [address], [place], [place], [address], [place] tel:[phone] [facility] sinus problem (chief complaint)m igrane (chief complaint)D epression (chief complaint)A llergy (chief complaint) Dietary surveillance and counselingSinusiti s, AcuteHeadacheAller gic rhinitis, cause unspecifiedMajor depressive affective disorder, single episode, mild degree 3 Manoj Navarrete. [address], [place], [place], [address] , . [phone] Family History Family Member Type Diagnosis Age At Onset Father Problem (finding) brain aneurysm Mother Problem (finding) Hyperlipidemia Payers Payer name Insurance type Covered democrat ID Authoriza tikristi(s) [employer] Medicare CI [id number] Social History Type Description Quantity Date Captured Comments Alcohol Use Details Caffeine Use Details Unknown Tobacco Use Status Never smoked tobacco 2024 Smoking Status Never smoker Sex Female Vital Signs Date / Time: Height Weight BMI Pulse Rate Blood Pressure Temperature Respiratory Rate Body Surface Area Head Circumference BMI percentile Pulse Ox Inhaled Ox 9:12 AM 65.00 in 143.20 lbs 23.8 3 kg/m eter (2) 89 /min 90/60 mm[Hg] 97.9 F 16 /min Chief Complaint And Reason For Visit From encounter dated '12/20/2024 09:05'. tremor1 (chief complaint). Description: Pt has chronic tremor with unknown etiology and dystonia Ptis on primidone and also mirapex which is helping both tremor and dystonia. Pt states that her tremor is much better now with addition of mirapex. Pt recently saw movement disorder specialist and he agrees on mirapex in addition to primidone Her tremor is much better now. migraine1 (chief complaint). Description: Pt has chronic migraine Pt is on aimovig and ubrelvy and Topamax 200 mg BID and her headache is doing well. Pt only had two migraine last week. Pt sees neurology. pt needs percocet refilled Plan Of Treatment Date Type Action Status Goal Tdap. Due on due Goal Sigmoidoscopy. Due on due Goal Depression screening. Due on due Goal Td vaccine. Due on due Goal FOBT. Due on due Goal Pap/HPV testing. Due on due Goal Influenza vaccine. Due on due Goal Lipid panel. Due on due Goal Lipid panel. Due on due Goal Influenza vaccine. Due on due Goal Pap/HPV testing. Due on due Goal FOBT. Due on due Goal Tdap. Due on due Goal Sigmoidoscopy. Due on due Goal Depression screening. Due on due Goal Td vaccine. Due on due Goal Lipid panel. Due on due Goal Influenza vaccine. Due on due Goal Pap/HPV testing. Due on due Goal FOBT. Due on due Goal Tdap. Due on due Goal Sigmoidoscopy. Due on due Goal Depression screening. Due on due Goal Td vaccine. Due on due Goal Td vaccine. Due on due Goal Depression screening. Due on due Goal Sigmoidoscopy. Due on due Goal Lipid panel. Due on due Goal Influenza vaccine. Due on due Goal Pap/HPV testing. Due on due Goal FOBT. Due on due Goal Tdap. Due on due Goal Tdap. Due on due Goal FOBT. Due on due Goal Td vaccine. Due on due Goal Depression screening. Due on due Goal Sigmoidoscopy. Due on due Goal Lipid panel. Due on due Goal Influenza vaccine. Due on due Goal Pap/HPV testing. Due on due Goal Pap/HPV testing. Due on due Goal Influenza vaccine. Due on due Goal Lipid panel. Due on due Goal Sigmoidoscopy. Due on due Goal Tdap. Due on due Goal FOBT. Due on due Goal Td vaccine. Due on due Goal Depression screening. Due on due Goal FOBT. Due on due Goal Tdap. Due on due Goal Sigmoidoscopy. Due on due Goal Lipid panel. Due on due Goal Influenza vaccine. Due on due Goal Pap/HPV testing. Due on due Goal Td vaccine. Due on due Goal Depression screening. Due on due Goal Depression screening. Due on due Goal Td vaccine. Due on due Goal FOBT. Due on due Goal Tdap. Due on due Goal Sigmoidoscopy. Due on due Goal Lipid panel. Due on due Goal Influenza vaccine. Due on due Goal Pap/HPV testing. Due on due Goal Td vaccine. Due on due Goal Depression screening. Due on due Goal Pap/HPV testing. Due on due Goal Influenza vaccine. Due on due Goal Lipid panel. Due on due Goal FOBT. Due on due Goal Tdap. Due on due Goal Sigmoidoscopy. Due on due Goal Td vaccine. Due on due Goal Depression screening. Due on due Goal Pap/HPV testing. Due on due Goal Influenza vaccine. Due on due Goal Lipid panel. Due on due Goal FOBT. Due on due Goal Tdap. Due on due Goal Sigmoidoscopy. Due on due Goal Td vaccine. Due on due Goal Depression screening. Due on due Goal Pap/HPV testing. Due on due Goal Influenza vaccine. Due on due Goal Lipid panel. Due on due Goal FOBT. Due on due Goal Tdap. Due on due Goal Sigmoidoscopy. Due on due Goal Sigmoidoscopy. Due on due Goal Tdap. Due on due Goal FOBT. Due on due Goal Td vaccine. Due on due Goal Depression screening. Due on due Goal Pap/HPV testing. Due on due Goal Influenza vaccine. Due on due Goal Lipid panel. Due on due Goal Pap/HPV testing. Due on due Goal Depression screening. Due on due Goal Sigmoidoscopy. Due on due Goal Tdap. Due on due Goal FOBT. Due on due Goal Influenza vaccine. Due on due Goal Td vaccine. Due on due Goal Lipid panel. Due on due Goal Lipid panel. Due on due Goal Td vaccine. Due on due Goal Influenza vaccine. Due on due Goal FOBT. Due on due Goal Tdap. Due on due Goal Pap/HPV testing. Due on due Goal Depression screening. Due on due Goal Sigmoidoscopy. Due on due Goal Sigmoidoscopy. Due on due Goal Depression screening. Due on due Goal Lipid panel. Due on due Goal Td vaccine. Due on due Goal Influenza vaccine. Due on due Goal FOBT. Due on due Goal Tdap. Due on due Goal Pap/HPV testing. Due on due Goal Pap/HPV testing. Due on due Goal Tdap. Due on due Goal FOBT. Due on due Goal Influenza vaccine. Due on due Goal Sigmoidoscopy. Due on due Goal Depression screening. Due on due Goal Lipid panel. Due on due Goal Td vaccine. Due on due Goal Td vaccine. Due on due Goal Lipid panel. Due on due Goal Depression screening. Due on due Goal Sigmoidoscopy. Due on due Goal Pap/HPV testing. Due on due Goal Tdap. Due on due Goal FOBT. Due on due Goal Influenza vaccine. Due on due Goal FOBT. Due on due Goal Tdap. Due on due Goal Pap/HPV testing. Due on due Goal Sigmoidoscopy. Due on due Goal Depression screening. Due on due Goal Lipid panel. Due on due Goal Td vaccine. Due on due Goal Influenza vaccine. Due on due Goal Td vaccine. Due on due Goal Lipid panel. Due on due Goal Sigmoidoscopy. Due on due Goal Pap/HPV testing. Due on due Goal Tdap. Due on due Goal FOBT. Due on due Goal Depression screening. Due on due Goal Influenza vaccine. Due on due Goal FOBT. Due on due Goal Tdap. Due on due Goal Pap/HPV testing. Due on due Goal Sigmoidoscopy. Due on due Goal Lipid panel. Due on due Goal Td vaccine. Due on due Goal Depression screening. Due on due Goal Influenza vaccine. Due on due Goal Influenza vaccine. Due on due Goal Depression screening. Due on due Goal FOBT. Due on due Goal Tdap. Due on due Goal Pap/HPV testing. Due on due Goal Sigmoidoscopy. Due on due Goal Lipid panel. Due on due Goal Td vaccine. Due on due Goal Td vaccine. Due on due Goal Lipid panel. Due on due Goal Sigmoidoscopy. Due on due Goal Influenza vaccine. Due on due Goal Depression screening. Due on due Goal FOBT. Due on due Goal Tdap. Due on due Goal Pap/HPV testing. Due on due Goal Pap/HPV testing. Due on due Goal Tdap. Due on due Goal FOBT. Due on due Goal Depression screening. Due on due Goal Influenza vaccine. Due on due Goal Td vaccine. Due on due Goal Lipid panel. Due on due Goal Sigmoidoscopy. Due on due Goal Sigmoidoscopy. Due on due Goal Pap/HPV testing. Due on due Goal Tdap. Due on due Goal FOBT. Due on due Goal Depression screening. Due on due Goal Influenza vaccine. Due on due Goal Td vaccine. Due on due Goal Lipid panel. Due on due Goal Lipid panel. Due on due Goal Td vaccine. Due on due Goal Influenza vaccine. Due on due Goal Depression screening. Due on due Goal Sigmoidoscopy. Due on due Goal Pap/HPV testing. Due on due Goal Tdap. Due on due Goal FOBT. Due on due Goal Td vaccine. Due on due Goal Influenza vaccine. Due on due Goal Depression screening. Due on due Goal Sigmoidoscopy. Due on due Goal Pap/HPV testing. Due on due Goal Tdap. Due on due Goal FOBT. Due on due Goal Lipid panel. Due on due Goal Lipid panel. Due on due Goal FOBT. Due on due Goal Tdap. Due on due Goal Pap/HPV testing. Due on due Goal Sigmoidoscopy. Due on due Goal Depression screening. Due on due Goal Influenza vaccine. Due on due Goal Td vaccine. Due on due Goal Lipid panel. Due on due Goal FOBT. Due on due Goal Tdap. Due on due Goal Pap/HPV testing. Due on due Goal Sigmoidoscopy. Due on due Goal Colonoscopy. Due on due Goal Depression screening. Due on due Goal Influenza vaccine. Due on due Goal Td vaccine. Due on due Goal Lipid panel. Due on due Goal FOBT. Due on due Goal Tdap. Due on due Goal Pap/HPV testing. Due on due Goal Sigmoidoscopy. Due on due Goal Colonoscopy. Due on due Goal Depression screening. Due on due Goal Influenza vaccine. Due on due Goal Td vaccine. Due on due Goal Lipid panel. Due on due Goal FOBT. Due on due Goal Tdap. Due on due Goal Pap/HPV testing. Due on due Goal Sigmoidoscopy. Due on due Goal Colonoscopy. Due on due Goal Depression screening. Due on due Goal Influenza vaccine. Due on due Goal Td vaccine. Due on due Goal Lipid panel. Due on due Goal FOBT. Due on due Goal Tdap. Due on due Goal Pap/HPV testing. Due on due Goal Sigmoidoscopy. Due on due Goal Colonoscopy. Due on due Goal Depression screening. Due on due Goal Influenza vaccine. Due on due Goal Td vaccine. Due on due Goal Colonoscopy. Due on due Goal Sigmoidoscopy. Due on due Goal Pap/HPV testing. Due on due Goal Tdap. Due on due Goal FOBT. Due on due Goal Lipid panel. Due on due Goal Td vaccine. Due on due Goal Influenza vaccine. Due on due Goal Depression screening. Due on due Goal Special diet education compl eted Goal Colonoscopy. Due on due Goal Sigmoidoscopy. Due on due Goal Pap/HPV testing. Due on due Goal Tdap. Due on due Goal FOBT. Due on due Goal Lipid panel. Due on due Goal Td vaccine. Due on due Goal Influenza vaccine. Due on due Goal Depression screening. Due on due Goal Special diet education compl eted Goal FOBT. Due on due Goal Tdap. Due on due Goal Pap/HPV testing. Due on due Goal Sigmoidoscopy. Due on due Goal Colonoscopy. Due on due Goal Depression screening. Due on due Goal Influenza vaccine. Due on due Goal Td vaccine. Due on due Goal Lipid panel. Due on due Goal Special diet education compl eted Goal FOBT. Due on due Goal Tdap. Due on due Goal Pap/HPV testing. Due on due Goal Sigmoidoscopy. Due on due Goal Colonoscopy. Due on due Goal Depression screening. Due on due Goal Influenza vaccine. Due on due Goal Td vaccine. Due on due Goal Lipid panel. Due on due Goal Special diet education compl eted Goal Lipid panel. Due on due Goal Td vaccine. Due on due Goal Influenza vaccine. Due on due Goal Depression screening. Due on due Goal Colonoscopy. Due on due Goal Sigmoidoscopy. Due on due Goal Pap/HPV testing. Due on due Goal Tdap. Due on due Goal FOBT. Due on due Goal Special diet education compl eted Goal FOBT. Due on due Goal Tdap. Due on due Goal Pap/HPV testing. Due on due Goal Sigmoidoscopy. Due on due Goal Colonoscopy. Due on due Goal Depression screening. Due on due Goal Influenza vaccine. Due on due Goal Td vaccine. Due on 18 due Goal Lipid panel. Due on due Goal Special diet education compl eted Goal FOBT. Due on due Goal Tdap. Due on due Goal Pap/HPV testing. Due on due Goal Sigmoidoscopy. Due on due Goal Colonoscopy. Due on due Goal Depression screening. Due on due Goal Influenza vaccine. Due on due Goal Td vaccine. Due on 18 due Goal Pap/HPV testing. Due on due Goal Sigmoidoscopy. Due on due Goal Depression screening. Due on due Goal Td vaccine. Due on 17 due Goal Colonoscopy. Due on 017 due Goal FOBT. Due on due Goal Influenza vaccine. Due on due Goal Tdap. Due on due Goal Depression screening. Due on due Goal Pap/HPV testing. Due on due Goal Influenza vaccine. Due on due Goal Sigmoidoscopy. Due on due Goal Td vaccine. Due on 17 due Goal Colonoscopy. Due on 017 due Goal Tdap. Due on due Goal FOBT. Due on due Goal Td vaccine. Due on 16 due Goal Tdap. Due on due Goal Pap/HPV testing. Due on due Goal Depression screening. Due on due Goal Tdap. Due on due Goal Td vaccine. Due on 16 due Goal Pap/HPV testing. Due on due Goal Depression screening. Due on due Goal Td vaccine. Due on 15 due Goal Depression screening. Due on due Goal Tdap. Due on due Goal Pap/HPV testing. Due on due Goal Depression screening. Due on due Goal Pap/HPV testing. Due on due Goal Td vaccine. Due on 15 due Goal Tdap. Due on due Goal Mammogram. Due on 4 due Referral Ordered: Urvashi Harris -Allopathic & Osteopathic Physicians : Plastic Surgery (related to Palmar fascial fibromatosis [Dupuytren]) ordered Referral Referred To: Urvashi Harris [address] [place] [address], [id number] Ordered: Referrals: Allopathic & Osteopathic Physicians : Plastic Surgery. Urvashi Harris. Evaluate and treat ordered Referral Ordered: Neurology (related to Migraine w/o aura, intractable, without status migrainosus) ordered Referral Ordered: Neurology (related to Migraine w/o aura, intractable, without status migrainosus) ordered Referral Referred To: Martha Crespo MD [address] [facility]
[address] [place], [place], [id number] Ordered: Referrals: Martha Crespo MD. Evaluate and treat ordered Referral Referred To: Agustin Gutierrez [address] [place], [phone] Ordered: Referrals: Agustin Gutierrez. Evaluate and treat ordered Referral Ordered: ECG MONITOR/RECORD, 24 HRS ordered Referral Ordered: Arsen Dickson -Allopathic & Osteopathic Physicians : Family Medicine (related to Pain in unspecified knee) ordered Referral Ordered: KNEE XRAY TWO-VIEW Bilateral ordered Referral Referred To: Arsen Dickson [address] [facility]
[address] [place], [place], [address] Ordered: Referrals: Allopathic & Osteopathic Physicians : Family Medicine. Arsen Dickson. Evaluate and treat ordered Referral Ordered: David Saleem -Allopathic & Osteopathic Physicians : Surgery (related to Nevus, non-neoplastic) ordered Referral Referred To: David Saleem [address] [place], [place], [id number] Ordered: Referrals: Allopathic & Osteopathic Physicians : Surgery. David Saleem. Evaluate and treat ordered Referral Ordered: Molina Neves -Allopathic & Osteopathic Physicians : Orthopaedic Surgery (related to Pain in right shoulder) ordered Referral Referred To: Molina Neves [address] [place], [place], [phone] Ordered: Referrals: Allopathic & Osteopathic Physicians : Orthopaedic Surgery. Molina Neves. Evaluate and treat ordered Referral Referred To: Marcia NAYLOR, Melvin Flores [facility] [address] [facility]
[place] [address] [place] [address], [phone] Ordered: Referrals: Marcia NAYLOR, Melvin Flores. Evaluate and treat ordered Referral Ordered: COLONOSCOPY AND BIOPSY ordered Referral Ordered: Surgery (related to Encounter for general adult medical exam w abnormal findings) ordered Referral Ordered: Referrals: Surgery. Evaluate and treat ordered Referral Ordered: DELIA WATKINS -Podiatric Medicine & Surgery Service Providers : Sewer Cleaner (related to Plantar fascial fibromatosis) ordered Referral Ordered: Neurology (related to Tremor) ordered Referral Ordered: MOTOR NERVE CONDUCTION TEST ordered Referral Referred To: DELIA WATKINS [address] [facility] [place], [place], [phone] Ordered: Referrals: Podiatric Medicine & Surgery Service Providers : Sewer Cleaner. DELIA WATKINS. Evaluate and treat ordered Referral Ordered: Neurology (related to Tremor) ordered Referral Ordered: MRI BRAIN W/O & W/DYE ordered Referral Ordered: Referrals: Neurology. Evaluate and treat ordered Oct-18-2018 Referral Ordered: LUMBAR XRAY AP AND LAT ONLY ordered Referral Ordered: MAMMOGRAM, SCREENING ordered Referral Ordered: Referral: Ortho Surg. Evaluate and treat. ordered Referral Ordered: Referral: Pain Management. ordered Referral Ordered: MRI NECK SPINE W/O DYE ordered History Of Present Illness Encounter Date Complaint History Of Prese nt Illness migraine1 Pt has chronic m igraine Pt is on aimovig and ubrelvy and Topamax 200 mg BID and her headache is doing well. Pt only had two migraine last week. Pt sees neurology. pt needs percocet refilled tremor1 Pt has chronic t remor with unknown etiology and dystonia Pt is on primidone and also mirapex which is helping both tremor and dystonia. Pt states that her tremor is much better now with addition of mirapex. Pt recently saw movement disorder specialist and he agrees on mirapex in addition to primidone Her tremor is much better now. tremor1 Pt has chronic t remor with unknown etiology and dystonia Pt is on primidone and also mirapex which is helping both tremor and dystonia. Pt states that her tremor is much better now with addition of mirapex. migraine1 Pt has chronic m igraine Pt is on aimovig and ubrelvy and Topamax 200 mg BID and her headache is doing well. Pt only had two migraine last week. Pt sees neurology finger1 Pt c/o chronic f lexion of left 5th finger with some harden nodule on left palm. migraine1 Pt has chronic m igraine. Pt sees neurology Pt is on aimovig and topamax and her headache is improving and she take ubrelvy PRn only. Pt states that insurance does not cover topamax 300 mg BID anxiety1 pt has chronic a nxiety and depression Pt takes cymbalta and abilify and doing ok. Pt denies any suicidal or homicidal thought Pt has not been having crying spells. Her mood is much better . tremor1 Pt has chronic t remor with unknown etiology and dystonia Pt is on primidone and also mirapex which is helping both tremor and dystonia1 tremor1 Pt has chronic t remor. Pt is on primidone and she started mirapex last month and her tremor is slightly improving .Pt does see movement disorder doctor migraine1 Pt has chronic m igraine headache. Pt is seeing neurology and she is on ubrelvy and aimovig and she received botox which has been helping her headache Pt needs percocet refilled anxiety1 Pt has chronic a nxiety and depression Pt takes cymbalta and she started abilify and she is feeling much better in terms of her mood Pt denies any suicidal or homicidal thought .Pt still has crying spells. Pt overall is feeling better now. physical Pt needs annual physical. Pt has chronic migraine headache with cavernoma. Pt sees neurology, neurosurgeon and also movement disorder physician Pt is on primidone and her tremor is not well controlled. Pt also has dystonia and dysarthria. Pt is off qulipta and she is on aimovig and ubrelvy now for migraine but is not helping Pt has daily migraines. Pt is very frustrated. Pt also has anxiety and depression. Pt takes cymbalta and she feels more depressed lately Pt denies any suicidal or homicidal thought. Pt has been having crying spells. pt also has HLP Pis on lipitor. headache1 Pt has chronic r ecurrent migraine headache Pt takes percocet and also qulipta. Pt has soledad with neurology around july of 2024 .Pt is seeing neurosurgeon due to cavernoma and she will have MRI of brain soon. Pt needs percocet refilled .Pt has headache 2-3 times per week fibromyalgia1 Pt has fibromyal lillian with positive Sera. her rheumatology does not take potter so she needs neurontin refilled. headache1 Pt has chronic h eadache Pt has soledad with neurology in June Pt is on qulipta and percocet PRN and doing ok anxiety1 Pt has chronic a nxiety and depression Pt doing ok with cymbalta Pt denies any suicidal or homicidal thought .Pt denies any crying spells sinus1 Pt c/o acute sin us congestion with drainage and sore throat for 3 days .Pt notices green sinus drainage Pt has mild dry cough .Pt denies any fever chill, sob. termor1 Pt has diffuse t remor all over and movement disorder told her that she has functional tremor and essential tremor without any signs of parkinson disease .Pt states that tremor is worse. headache1 Pt has chronic h eadache Pt sees neurosurgeon. Pt has soledad with neurology next June pt is on qulipta and percocet PRN Pt still has migraine 2-3 per week.. Pt denies any acute headache Pt just saw movement disorder doctor and had a shot around C spine area due to hand tremor. 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 pt is on topamax but not working. Pt failed ajovy. Pt has been taking percocet pRN for headache which does help. pt has daily headache Pt also failed imitrex. Pt also failed topamax, amitriptyline propranolol. pt in on qulipta but it does not help as much anymore .She also has essential tremor. Pt is seeing movement disorder specialist at [facility]. Pt also has cavernoma and she is seeing neurosurgeon at [facility] as well. 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 pt is on topamax but not working. Pt failed ajovy. Pt has been taking percocet pRN for headache which does help. pt has daily headache Pt has not heard from neurology yet.. Pt also failed imitrex. Pt also failed topamax, amitriptyline propranolol. Pt started qulipta last month which actually is helping. Pt states that her headache is about 75% improved with qulipta. 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 Pt sees movement specialist and she does not have any parkinson diagnosis at this point. Pt also has gait abnormality . Pt was again refused by [facility] after my referral joint pain1 Pt has joint elizabeth n and positive SERA and she is seeing rheumatology and she does not have any active lupus or any connective tissue disease. .Pt is on neurontin migraine1 Pt c/o severe co nstant throbbing bilateral temporal headache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
--- NOTE | 2024-12-27 06:51 | P.OP_ITS ---
Procedure Note - Detailed Date of Procedure 12/27/24 Pre-op Diagnosis Dupuytrens Contracture Left Small Finger Post-op Diagnosis Same Procedure Performed left small finger fasciectomy Surgeon Urvashi Harris MD Entertainer Or Variety Artist Armand Santos PA-C Anesthesia MAC Description of Procedure INFORMED CONSENT: The patient was seen and examined and marked in the pre-op area.? The patient signed the consent form. PROCEDURE IN DETAIL:The patient taken back to OR on the stretcher in supine position. Time out performed with anesthesia, surgeon and staff agreeing on patient's name site and surgery to be performed SCDs were placed on the lower extremities and inflated. A tourniquet was placed on {left} upper extremity and antibiotics given IV After anesthesia administered sedation I injected {4}cc 1%lido and 0.5% marcaine plain at the operative site The?{left upper extremity}?was prepped and draped in sterile fashion the??{left upper extremity} was? exsanguinated with Esmarch bandage and tourniquet inflated to 250mmHg I proceeded with making a Delmi incision over the left small finger Dupuytren's cord through skin and dermis with 15 blade scalpel. Littler scissors were used to elevate skin flap in the subcutaneous plane. The cord was identified near its origin proximally around the MP joint flexion crease. I circumferentially dissected around the cord and transected proximally. I proceeded with anterograde dissection of the cord and resection until I was able to achieve full extension of the PIP joint. The neurovascular bundle was identified and protected throughout the procedure. I irrigated with normal saline. Closure with 4-0 chromic. A dressing of xeroform, 4x4, melissa, and an ulnar gutter splint was applied for patient safety, security, and comfort and secured with an cece bandage after the tourniquet was let down noting the hand was warm and well perfused. The patient was then awaken from anesthesia and transferred to the recovery room in stable condition.? Complications - none EBL- 0cc Disposition - home in stable condition Armand Santos PA-C was essential for positionig, retraction, closure and dressing placement AM Billing Surgery - Charge Forward: Surgery Billing ([id number] for armand)
--- NOTE | 2024-12-27 06:51 | WPDHPUPDATE1 ---
History and Physical Update Update Date/Time: 12/27/24 06:51 Patient seen and examined in pre-operative holding area. No interval change in medical history or symptoms. Patient recalls previous discussion of benefits and alternatives to procedure. Continues to desire to proceed with left small finger fasciectomy. Reviewed procedure, post-op expectations and risks including but not limited to bleeding, infection, injury to tendon/nerve/vessel, decreased hand function, stiffness, RSD, no change or worsening of symptoms, recurrence, incomplte release. I discussed the possible use of assistants and their participation in the case. Patient stated understanding and signed the consent form wishing to proceed.
--- OUTSIDE RECORDS SUMMARY | 2024-12-27 08:02 | XMS_ITS | Clinical Summary ---
Author Organization [facility] [place] [address] Care Team Providers Care Rag Sorter Name Role Phone Landon Aranda MD Primary Care Provider [phone] Allergies Active Allergy Reactions Criticality Noted Date [...] I was located in my office at [address] [place] [address] and the patient was located at her home in [place]. The session started at 13:06 and ended [...] a telephone or video visit during the [facility] [place] [address] emergency. After being given an opportunity to [...] Description 12/04/2024 10:00 AM CDT [facility] [place] [facility] [address], [address] [place] [address] Angie Barnhart MD Botox Procedure (Migraines ) 12/04/2024 Scan HEALTH INFO SRVCS Scanned, [facility] 12/04/2024 Travel 11/06/2024 9:40 AM CDT [facility] [address] [place] [address] Angie Barnhart MD Follow Up 11/06/2024 Travel 10/18/2024 Misc [facility]ation [facility] [address] [place] [phone] Angie Barnhart MD 10/02/2024 Telephone [facility] - [address], [address] [place] [phone] Angie Barnhart MD Prior Authorization ([employer]) 10/01/2024 [facility]phone [facility] [address], [address] [place] [phone] Angie Barnhart MD Medication Problem from Last [...] Description 02/26/2025 9:40 AM CDT Office Visit [facility] [address], [address] [place] [phone] Angie Barnhart MD [address] [place] [address] 11/07/2025 9:40 AM CDT Office Visit [facility] [address], [address] [place] [phone] Angie Barnhart MD [address] [place] [address] Health Maintenance Due Date Last Done Comments [...] Td or Tdap) 09/02/2025 09/03/2015 PHQ-2 (Physician Kenner) Completed 11/06/2024 Meningococcal B Vaccine Aged Out No l onger eligible based on patient's age to complete this topic Meningococcal Vaccine Aged Out No manju ish eligible based on patient's age to complete this topic RSV Immunizations Under 20 Months Aged Out No longer eligible based on patient's age to complete this topic Insurance AETNA Care Teams Rag Sorter Relationship Specialty Start Date End Date Landon Aranda MD PCP - General FAMILY PRACTICE 09/16/20
--- OUTSIDE RECORDS SUMMARY | 2024-12-27 08:02 | XMS_ITS | Encounter Summary ---
Author Organization [facility] Address [address] [place] [address] Care Team Providers Care Delineator Name Role Phone Landon Aranda MD Primary Care Provider [phone] Encounter Details Date Type Department Care Team (Late Contact Info) Description 09/16/2020 Prep for Procedure [facility] [place] [address] [phone] Mai Calderon NP [address] [facility] [address] [place] [phone] (Work) Social History Tobacco Use Types Packs/Day [...] Description 02/26/2025 9:40 AM CDT Office Visit [facility] - [address], [address] [place] [phone] Angie Barnhart MD [address] [place] [address] 11/07/2025 9:40 AM CDT [facility] - [address], [address] [place] [phone] Angie Barnhart MD [address] [place] [address] documented as of this encounter Visit Diagnoses Not on filedocumented in this encounter Care Teams Delineator Relationship Specialty Start Date End Date Landon Aranda MD PCP - General FAMILY PRACTICE 09/16/20 documented as of this encounter
--- OUTSIDE RECORDS SUMMARY | 2024-12-27 08:03 | XMS_ITS | Patient Health Record ---
Author Organization [facility] Address [address] [place] [address] Care Team Providers Care Floor Steward/Stewardess Name Role Phone Manoj NAYLOR, Landon Primary Care Provider Martha Negron Unavailable [phone] Allergies Allergen (clinical drug ingredient) Drug/Non Drug [...] 2 tablets prn oral *Pick strength-form from [employer] for eRX* Active Atorvastatin Calcium 40 MG 1 tablet Orally Once a day; Duration: 30 day(s) Active Albuterol Sulfate HFA 108 (90 Base) MCG/ACT prn Inhalation Acti ve Montelukast Sodium 10 MG 1 tablet Orally Once a day; Duration: 30 day(s) Active Primidone 50 MG take 4 tabs daily Oral Active Vitamin D (Ergocalciferol) 1.25 MG (09964 UT) take 1 capsule weekly Oral Active Metoprolol Succinate ER 25 MG take 1 tablet (25 mg) by oral route once daily Oral 1 Active Gabapentin 600 MG 1 tablet Orally 3 times a day; Duration: 30 days Active Topiramate 200 mg take 1.5mg daily oral *Pick strength-form from [employer] for eRX* Active ALPRAZolam 0.5 MG take 1 tablet daily as needed Oral Active DULoxetine HCl 60 MG take 1 capsule (60 mg) by oral route once daily Oral 1 Active Xyzal - take 1 tablet at bedtime oral *Reorder from [employer] for eRx and Interaction Alerts* Active Problems Problem Type SNOMED Code ICD Code Onset Dates Problem Status W/U Status Risk Notes Problem Fibromyalgia (619516137) Fibromyalgia (M79.7) Active confirmed Problem Osteoarthritis, unspecified [...] 024 SSA/SSB ANTIBODY (SJOGREN'S) 12/16/2023 TAN / FIBERGLASS BONDING MACHINE TENDER ANTIBODY 12/16/2023 DNA (DS) ANTIBODY 12/16/2023 SERA SCREEN/REFLEX TITER/PATTERN 12/16/19 24 Insurance Providers Payer Name Payer Address Payer Phone Subscriber Number Group Number Insured Name Patient Relationship to Insured Coverage Start Date Coverage End Date [place] [address] [place] [address] [id number] Ivis Szymanski Self - patient is the insured Medical (General) History Medical History History ICD Code SERA positive; Asthma; Depression; Hyperlipidemia; Vitamin D deficiency; Parkinson's disease Surgical History Surgery Date(Month/Year) breast implant removal; 2023-01-21
--- OUTSIDE RECORDS SUMMARY | 2024-12-27 08:03 | XMS_ITS | Clinical Summary ---
Author Organization [facility] Address [address] [place] [address] Care Team Providers Care Farm Or Ranch Animal Caretaker Name Role Phone Landon Aranda MD Primary Care Provider [phone] Source Comments [facility],non-owned Affiliates and Associated Physician Practices is amultiple site organization consisting of ambulatory clinics and hospital sitesin [place], [place], [place] and [place]. This disclosure is being madepursuant to the Care Everywhere program and may not contain all information available regarding this patient. Last updated 18.[facility] Allergies Active Allergy Reactions Criticality Noted Date [...] Active vitamin D, ergocalciferol, (Drisdol) 1.25 MG (25242 UT) capsule Take 1 (one) capsule by [...] I was located in my office at [address] [place] [address] and the patient was located at her home in [place]. The session started at 13:06 and ended [...] telephone or video visit during the [facility] [place] [address] emergency. After being given an opportunity to [...] - 09/28/2024 11:59 PM CDT Hospital Encounter [facility] DIAGNOSTIC RAD CSM [address] [facility] [place] [address] Ananya Davis PA-C Discharge Disposition: Home or Self Care 09/28/2024 10:45 AM CDT Office Visit [facility] [address] [place] [address] Ananya Davis PA-C Primary osteoarthritis of left knee (Primary Dx); Primary osteoarthritis of right knee; Chronic pain of both knees 09/28/2024 Orders Only [facility] [address] [place] [phone] Ananya Davis PA-C Pain in both [...] Office Visit [facility] [address] [place] [phone] Ananya Davis PA-C [address] [place] [address] Health Maintenance Due Date Last Done Comments [...] Procedure Name Priority Date/Time Associated Diagnosis Comments MT DRAIN/INJECT LARGE JOINT/BURSA Routine 09/28/2024 11:14 AM CDT Primary osteoarthritis of left knee Primary osteoarthritis of right knee Chronic pain of both knees MT DRAIN/INJECT LARGE JOINT/BURSA Routine 09/28/2024 11:14 AM CDT Primary osteoarthritis of left knee Primary osteoarthritis of right knee Chronic pain of both knees XR KNEE RIGHT 4VW OR MORE Routine 09/28/2024 11:10 AM CDT Pain in both knees, unspecified chronicity XR KNEE LEFT 4VW OR MORE Routine 09/28/2024 11:10 AM CDT Pain in both knees, unspecified chronicity from Last 3 Months Results * MT DRAIN/INJECT LARGE JOINT/BURSA (09/28/2024 11:14 AM CDT) [...] PROCEDURE/MINOR SURGICAL OR DERABLES Final Result * MT DRAIN/INJECT LARGE JOINT/BURSA (09/28/2024 11:14 AM CDT) [...] knee. Report dictated by Chon Chen MD (vice president safety). Aspen Segura MD have personally reviewed and interpreted this examination/study. > Interpreting Provider: Aspen Conroy MD on 09/28/2024 2:28 PM Narrative 09/28/2024 2:28 PM CDT EXAMINATION: XR KNEE RIGHT 4VW OR MORE DATE/TIME OF EXAM: 09/28/2024 11:12 AM, LOCATION [facility] HISTORY: M25.561: Pain in both knees, [...] DATE/TIME OF EXAM: 09/28/2024 11:12 AM, LOCATION [facility] HISTORY: M25.561: Pain in both knees, [...] knee. Report dictated by Chon Chen MD (vice president safety). Aspen Segura MD have personally reviewed and [...] knee. Report dictated by Chon Chen MD (vice president safety). I, Aspen Conroy MD have personally reviewed and interpreted this examination/study. > Interpreting Provider: Aspen Conroy MD on 09/28/2024 2:29 PM Narrative 09/28/2024 2:29 PM CDT EXAMINATION: XR KNEE LEFT 4VW OR MORE DATE/TIME OF EXAM: 09/28/2024 11:12 AM, LOCATION [facility] HISTORY: M25.561: Pain in both knees, [...] DATE/TIME OF EXAM: 09/28/2024 11:12 AM, LOCATION [facility] HISTORY: M25.561: Pain in both knees, [...] knee. Report dictated by Chon Chen MD (vice president safety). I, Aspen Cnoroy MD have personally reviewed and interpreted this examination/study. > Interpreting Provider: Aspen Conroy MD on 09/28/2024 2:29 PM us Ananya Davis PA-C DIAGNOSTIC IMAGING ORDERABL ES Final Result from Last 3 Months Insurance T AETNA MEDICARE ADV Care Teams Farm Or Ranch Animal Caretaker Relationship Specialty Start Date End Date Landon Aranda MD PCP - General 10/10/20
--- OUTSIDE RECORDS SUMMARY | 2024-12-27 08:03 | XMS_ITS | Clinical Summary ---
Author Organization [facility] Address [facility] [place] [address] Care Team Providers Care Forest Management Teacher Name Role Phone Landon Aranda MD Primary Care Provider Allergies Active Allergy Reactions Criticality Noted Date [...] 2 (two) times a day 025 Discontin u([facility] Hospital, Clinic, or Other Facility Administered Medication Ordered Dose Route Frequency Start Date End Date Status onabotulinumtoxin A (BOTOX) injection 300 UnitsIndications:C ervical dystonia 300 Units IM Once for Clinic-Administe red Medication 03/19/2025 6 Active onabotulinumtoxin A (BOTOX) injection 300 [...] 12/18/2024 5 Ended onabotulinumtoxin A (BOTOX) injection 200 UnitsIndications:C ervical dystonia 200 Units IM Once for Clinic-Administe red Medication 12/20/2024 5 Discontinued Active Problems Problem Noted Date Diagnosed Date [...] (right) Assessment & Plan (06/19/2024 11:30 AM GRADUATE INTERN): She has late adulthood onset, progressive, persistent, [...] (right) Assessment & Plan (03/20/2024 9:39 AM GRADUATE INTERN): She has late adulthood onset, progressive, persistent, [...] discontent regarding her recent ROV with our RFID STRATEGIST as she felt rushed, I told her that I have reviewed that office visit note and plan with RFID STRATEGIST and it was a thorough evaluation. She was okay with continuing to see the same RFID STRATEGIST for now. Recommendations: Botox injected as detailed below. Botox administered: 180 Units (amount wasted: 20 Units) injected into the following muscles using a 1 ml dilution: 40U Levator Scapulae (left) 20U Splenius Capitis (left) 40U Sternocleidomastoid (right) 60U Trapezius (left) 20U Trapezius (right) Assessment & Plan (05/10/2023 11:00 AM GRADUATE INTERN): She has late adulthood onset, progressive, persistent, [...] services. 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 Assessment & Plan (04/23/2022 7:32 AM GRADUATE INTERN): She has a longstanding history of kinetic [...] exercises. Assessment & Plan (04/22/2021 4:58 PM GRADUATE INTERN): She has a longstanding history of kinetic [...] I was located in my office at [address] [place] [address] and the patient was located at her home in [place]. The session started at 13:06 and ended [...] a telephone or video visit during the [address] emergency[address] After being given an opportunity to [...] exercises. Assessment & Plan (05/11/2019 1:58 PM GRADUATE INTERN): She has a longstanding history of kinetic [...] mild excessive daytime sleepiness as reflected by Murray of 12, we discussed that this needs [...] Encounters Date Type Department Care Team Description 12/21/2024 Orders Only [facility] Medicine Movement Disorders [address] [facility] Medicine 6th [place] [address] [place] [address] Azael Richard MD PhD Cervical dystonia (Primary Dx) 12/18/2024 9:15 AM CDT Procedure visit [facility] Movement Disorders [address] [facility] Medicine 6th [place] [address] [place] [address] Azael Richard MD PhD Cervical dystonia (Primary Dx) 12/04/2024 3:00 PM CDT Office Visit [facility] Movement Disorders [address] [facility] 7[address] [place] [address] Azael Richard MD PhD Essential tremor (Primary [...] Migraine Protrusion of cervical intervertebral disc 08/19 20 Cervical spondylosis Anxiety Chest pain Depression Kidney [...] on file Legal Sex Female 3:20 AM GRADUATE INTERN Gender Identity Female 01/07/2021 4:33 PM CDT [...] (2 - Td or Tdap) 09/02/202508/2015 Insurance [facility] AETNA [place] [address] IDPA Care Teams Forest Management Teacher Relationship Specialty Start Date End Date Landon Aranda MD PCP - General 02/22/14
--- OUTSIDE RECORDS SUMMARY | 2024-12-27 08:03 | XMS_ITS | Clinical Summary ---
Author Organization [facility] Address [address] [place] [address] Phone Care Team Providers Care Project Crew Worker Name Role Phone Landon Aranda MD Primary Care Provider [phone] Allergies Active Allergy Reactions Criticality Noted Date [...] 1 PUFF BY MOUTH TWICE A DAY Active Active Problems Problem Noted Date Diagnosed [...] on file Legal Sex Female 2:44 PM WORD PROCESSOR Gender Identity Not on file Sexual Orientation Not on file Last Filed Vital Signs Vital Sign Reading Time Taken Comments Blood Pressure 135/93 06/02/2020 9:22 AM WORD PROCESSOR Pulse 88 11/14/2019 4:20 PM CDT Temperature 36.7 C (98 F) 11/14/2019 2:14 PM CDT Respiratory Rate 19 11/14/2019 4:20 PM CDT Oxygen Saturation 98% 11/14/2019 4:20 PM CDT Inhaled Oxygen Concentration - - Weight 77.1 kg (170 lb) 06/02/2020 9:22 AM WORD PROCESSOR Height 165.1 cm (5' 5) 06/02/2020 9:22 AM WORD PROCESSOR Body Mass Index 28.29 06/02/2020 9:22 AM WORD PROCESSOR Plan of Treatment Health Maintenance Due Date [...] (#1) 2024 Medical Devices Explanted Type Area Director Of Design Device Identifier Shelf Expiration Date Model / Serial / Lot Breast Implants Explanted:Qty: 1 on 11/14/2019 [place] [facility] [place] Bilateral: Breast Description:Dr Bowden exp lanted bilateral implants. NO IMPLANT INFORMATION AVAILABLE Insurance Member Subscriber Plan / Payer (Ef fective 2020-Present) Name:Ivis Szymanski Relation to Subscriber:Spouse Name:DAVID SZYMANSKI Date of :1972 (Home) Address: [address] [place] [address] Payer ID:[id number] (NAIC) Type:PPO RX PEREZ PLANS (INTERNAL) [facility] [employer] Express Advance Directives For more information, please contact: [phone] * Full Code (Latest Code Status on File) Date Activated Date Inactivated Comments 11/14/2019 7:58 AM 11/14/2019 6:43 PM Care Teams Project Crew Worker Relationship Specialty Start Date End Date Landon Aranda MD [address] [place] [address] PCP - General Family Practice 07/05/19
[2024-12-27 08:28] VITALS: BP 104/76; PULSE 85; RESP 18; TEMP 37.4; O2SAT 100; BMI 25.3
[2024-12-27] MEDS: LACTATED RINGERS 1,000 ML 30 ML IV CONT (08:52)
[2024-12-27] MEDS: ACETAMINOPHEN 500 MG TABLET 1000 MG PO (08:52)
--- NOTE | 2024-12-27 09:12 | WPDANESEPPF ---
Anes - Initial Pre Proc Eval Procedure: Operation Date: 12/27/24 09:45 Proposed Procedures p Fasciectomy Left Small Finger - Urvashi Harris MD Date/Time: 12/27/24 09:12 Surgeon: Urvashi Harris MD Pre Op Diagnosis: Dupuytrens Contracture Left Small Finger Patient Data Age: 59 Gender: F Height: 1.63 m Weight: 66.9 kg Last Vital Signs Temp 99.4 F 12/27/24 08:28 Pulse 85 12/27/24 08:28 Resp 18 12/27/24 08:28 BP 104/76 12/27/24 08:28 Pulse Ox 100 12/27/24 08:28 O2 Del Method Room Air 12/27/24 08:28 Allergies Allergy/AdvReac Type Severity Reaction Status Date / Time Sulfa (Sulfonamide Allergy Severe Anaphylaxis Verified 12/27/24 08:13 Antibiotics) SKIN GLUE Allergy Intermediate BLISTERS Uncoded 12/27/24 08:13 Home Medications ?Medication ?Instructions ?Recorded ?Confirmed ?Type montelukast 10 mg tablet 10 mg PO DAILY 04/26/19 12/27/24 History (Singulair) atorvastatin 10 mg tablet (Lipitor) 20 mg PO DAILY 12/09/20 12/27/24 History albuterol sulfate 90 mcg/actuation 1 puff inhalation Q4H PRN Wheezing 03/22/22 12/12/24 History aerosol inhaler levocetirizine 5 mg tablet (Xyzal) 5 mg PO DAILY 03/22/22 12/27/24 History topiramate 200 mg tablet See Rx Instructions .Route 06/11/22 12/27/24 Rx .COMPLEX #270 tabs duloxetine 60 mg capsule,delayed 60 mg PO DAILY 04/04/24 12/27/24 History release metoprolol succinate 25 mg See Rx Instructions .Route 06/15/24 12/27/24 Rx tablet,extended release 24 hr .COMPLEX #90 tabs aripiprazole 10 mg tablet (Abilify) 10 mg PO DAILY 10/02/24 12/27/24 History celecoxib 100 mg capsule 100 mg PO DAILY 10/02/24 12/27/24 History ergocalciferol (vitamin D2) 1,250 1,250 mcg PO WEEKLY 10/02/24 12/27/24 History mcg (50,000 unit) capsule gabapentin 600 mg tablet 600 mg PO TID 10/02/24 12/27/24 History oxycodone-acetaminophen 7.5 mg-300 1 tablet PO Q6H PRN pain 10/02/24 12/27/24 History mg tablet pramipexole 0.25 mg tablet 0.25 mg PO QPM 10/02/24 12/27/24 History primidone 50 mg tablet 250 mg PO DAILY 10/02/24 12/27/24 History erenumab-aooe 140 mg/mL 140 mg subcut MONTHLY 12/12/24 12/12/24 History subcutaneous auto-injector (Aimovig Autoinjector) pramipexole 1 mg tablet mg 12/12/24 History ubrogepant 100 mg tablet (Ubrelvy) 100 mg PO BID PRN migraine headache 12/12/24 12/12/24 History Patient hx anesthesia problems: none Family hx anesthesia problems: none Results Review: All pre-operative results and documents have been reviewed as part of the pre-operative evaluation. [facility] Past Medical History Medical History Anxiety Asthma Colon polyp History of breast implant removal 10/2020 Migraine Surgical History Surgical History History of breast augmentation 12/2006 History of rotator cuff surgery Family History Family History Father Patient's father is Social History Social History Smoking status: Never smoker Second hand tobacco smoke exposure: No Alcohol intake: current Alcohol use details: RARELY Substance use: never Substance use type: does not use Lack of Transportation: No Lack of Food: Never True Current Housing: I Have Housing Concerned About Future Housing: No Difficulty Paying Gas/Electric Bills: No Difficulty Paying for Meds: No Currently Unemployed: No Education: Associate Degree Difficulty w/ Childcare or Family Care: No Living arrangements: with family Gender identity (if verbalized by the patient): Female Spiritual care concerns: No Anes - Eval Final PreProcedure Day of Procedure 12/27/24 09:12 Heart: regular rate and rhythm Lungs: clear to auscultation Airway: Mallampati scale class II Neurological: alert and oriented Last oral intake: >/= 8 hours ASA classification: II Anesthetic plan: proceed Anesthesia type and monitoring: monitored anesthesia care Results Review: All pre-operative results and documents have been reviewed as part of the pre-operative evaluation. Informed Consent: The patient's anesthetic plan and its attendant risks and benefits were discussed with the patient/family/POA. Questions were solicited and answers provided to the satisfaction of the patient/family/POA.
[2024-12-27] MEDS: ceFAZolin SODIUM 2 GM/20 ML SW SYRINGE IV PUSH (09:59)
[2024-12-27] MEDS: BUPivacaine HCL 0.5% 10 ML AMP 2 ML INFILTRATE (10:01)
[2024-12-27] MEDS: LIDOCAINE 1% LOCAL INJ 20 ML VIAL INFILTRATE (10:02)
--- NOTE | 2024-12-27 10:03 | WPDANESPN ---
Anes - Prog Note Post-Op Date/Time: 12/27/24 10:03 Vital Signs: Last Vital Signs Temp 99.4 F 12/27/24 08:28 Pulse 85 12/27/24 08:28 Resp 18 12/27/24 08:28 BP 104/76 12/27/24 08:28 Pulse Ox 100 12/27/24 08:28 O2 Del Method Room Air 12/27/24 08:28 Pain Score (VAS): no Patient Feedback: Patient satisfied with anesthetic care.
[2024-12-27 10:09] VITALS: BP 90/65; PULSE 83; RESP 15; O2SAT 100
[2024-12-27 10:19] VITALS: BP 93/74; PULSE 75; RESP 16; O2SAT 99
[2024-12-27 10:29] VITALS: BP 108/62; PULSE 76; RESP 18; O2SAT 100
== END 2024-12-27 10:42 | disposition home or self-care (01) ==
PROVIDERS: PCP Emergency Medicine; Visit Provider Plastic Surgery
PROC: (CPT 26045; principal; 2024-12-27 09:45)
DX: M72.0 Palmar fascial fibromatosis [Dupuytren] (principal)
CPT/HCPCS: 26123

== ENCOUNTER 2024-12-27 08:35 | Outpatient (NON) | payer MEDICARE, SELFPAY ==
--- OUTSIDE RECORDS SUMMARY | 2024-03-16 04:45 | XMS_ITS ---
Author Organization [facility] thalia Address [address] [place] [address] Care Team Providers Care Manifest/Order Organizer Print Orders Name Role Phone Manoj NAYLOR, Landon Primary Care Provider Martha Negron [phone] REASON FOR VISIT yd/3 month follow up/flc Encounters Encounter Location Date Provider Diagnosis [facility] [address] [facility] [facility] [address] [place] [address] 03/16/2024 Martha Styles Plan Of Treatment No Information Progress Notes * Lisset SZYMANSKIB:1965 ( 59 yo Other)Acc No.[id number]:03/16/2024 Progress Notes Patient: Ivis SHRESTHA Appointment Provider: Eugenia STYLES MD :1965 A ge:58 Y S ex:Unknown Date:03/16/2024 Address:[address] [place] [address] Pcp:Landon Aranda MD Subjective: * Chief Complaints: * 1 . Yd/3 month follow up/flc. * Medical History: Objective: * Vitals: Assessment: Plan: * Treatment: * Billing Information: * Visit Code: * Procedure Codes: * Electronic signature of Martha Styles MD on 12/28/2024 at 08:42 AM CDT Sign off status: Pending * Appointment Provider: Eugenia STYLES MD Date: 05/16/2023 Generated for Printi ng/Faxing/eTransmitting on: 0 12/28/2024 08:42 AM CDT
--- OUTSIDE RECORDS SUMMARY | 2024-12-20 04:05 | XMS_ITS | Continuity of Care Document ---
Author Organization [facility] Address [address] [address] [place] [address] Phone Care Team Providers Care Grain Unloader Name Role Phone Landon Aranda MD Unavailable [...] route every day 15 MG - Active Aimovig Autoinjector 140 mg/mL subcutaneous [...] in the evening 10 MG - Active Lipitor 20 mg tablet take 1 Tablet by oral route every day 20 MG - Active Cymbalta 60 mg capsule,delayed release take 1 capsule by oral route every day - Active Neurontin 600 mg tablet take [...] Providers Copied on Encounter OFFICE/OUTPA TIENT VISIT, [facility], [address], [place], [place], [address], [place] tel:[phone] [facility] tremor1 (chief complaint)m igraine1 (chief complaint) Essential tremorMigraine w/o aura, not intractable, w/o status migrainosus 5 Manoj Navarrete. [address], [place], [place], [address] , [place]. tel:[phone] OFFICE/OUTPA TIENT VISIT, [facility], [address], [place], [place], [address], [place] tel:[phone] [facility] tremor1 (chief complaint)m igraine1 (chief complaint) Essential tremorMigraine w/o aura, not intractable, w/o status migrainosus 5 Manoj Navarrete. [address], [place], [place], [address] , [place]. tel:[phone] OFFICE/OUTPA TIENT VISIT, [facility], [address], [place], [place], [address], [place] tel:[phone] [facility] anxiety1 (chief complaint)m igraine1 (chief complaint)t remor1 (chief complaint)f inger1 (chief complaint) Essential tremorGeneralized anxiety disorderMigraine w/o aura, not intractable, w/o status migrainosusPalmar fascial fibromatosis [Dupuytren] 5 Manoj Navarrete. [address], [place], [place], [address] , [place]. tel:[phone] OFFICE/OUTPA TIENT VISIT, [facility], [address] [place], [address], [place] tel:[phone] [facility] anxiety1 (chief complaint)t remor1 (chief complaint)m igraine1 (chief complaint) Essential tremorGeneralized anxiety disorderMigraine w/o aura, not intractable, w/o status migrainosus 5 Manoj Navarrete. [address], [place], [place], [address] , [place]. [phone] PREV VISIT, EST, AGE 40-64 [facility], [address], [place], [place], [address], [place] tel:[phone] [facility] physical (chief complaint) Encounter for general adult medical examination without abnormal findings 5 Manoj Navarrete. [address], [place], [place], [address] , [place]. tel:[phone] OFFICE/OUTPA TIENT VISIT, EST [facility], [address], [place], [place], [address], [place] tel:[phone] [facility] headache1 (chief complaint) Migraine w/o aura, intractable, without status migrainosus 5 Manoj Navarrete. [address], [place], [place], [address] , [place]. [phone] OFFICE/OUTPA TIENT VISIT, EST [facility], [address], [place], [place], [address], [place] tel:[phone] [facility] fibromyalgi a1 (chief complaint)h eadache1 (chief complaint)a nxiety1 (chief complaint) FibromyalgiaMigrai ne w/o aura, intractable, without status migrainosusGeneral ized anxiety disorder 4 Manoj Navarrete. [address], [place], [place], [address] , [place]. tel:[phone] OFFICE/OUTPA TIENT VISIT, EST [facility], [address], [place], [place], [address], [place] tel:[phone] [facility] headache1 (chief complaint)t ermor1 (chief complaint)s inus1 (chief complaint) Acute sinusitisMigraine w/o aura, intractable, without status migrainosusTremor 4 Manoj Navarrete. [address], [place], [place], [address] , [place]. tel:[phone] OFFICE/OUTPA TIENT VISIT, [facility], [address], [place], [place], [address], [place] tel:[phone] [facility] migraine1 (chief complaint) Migraine w/o aura, intractable, without status migrainosusEssenti al tremorOther malformations of cerebral vessels 4 Manoj Navarrete. [address], [place], [place], [address] , [place]. tel:[phone] OFFICE/OUTPA TIENT VISIT, [facility], [address] [place], [address], [place] tel:[phone] [facility] migraine1 (chief complaint) Migraine w/o aura, intractable, without status migrainosus 4 Manoj Navarrete. [address], [place], [place], [address] , [place]. tel:[phone] OFFICE/OUTPA TIENT VISIT, [facility], [address], [place], [place], [address], [place] tel:[phone] [facility] migraine1 (chief complaint)t remor1 (chief complaint)j oint pain1 (chief complaint) Essential tremorMigraine w/o aura, intractable, without status migrainosusFibromy algia 4 Manoj Navarrete. [address], [place], [place], [address] , [place]. tel:[phone] OFFICE/OUTPA TIENT VISIT, [facility], [address], [place], [place], [address], [place] tel:[phone] [facility] headache1 (chief complaint)H LP (chief complaint)t remor1 (chief complaint) Essential tremorMigraine w/o aura, intractable, without status migrainosusMixed hyperlipidemia 4 Manoj Navarrete. [address], [place], [place], [address] , [place]. tel:[phone] PREV VISIT, EST, AGE 40-64 [facility], [address], [place], [place], [address], [place] tel:[phone] [facility] physical (chief complaint) Encounter for general adult medical exam w abnormal findingsMigraine w/o aura, not intractable, w/o status migrainosusOther malformations of cerebral vesselsEssential tremorOther speech disturbancesMixed hyperlipidemiaFibr omyalgiaGeneralize d anxiety disorderPalpitatio ns Sean- 4 Manoj Floyd [address], [place], [place], [address] , [place]. tel:[phone] Referring Provider: Son Crum [facility] [address], [place], [place], [address]. tel:[phone] OFFICE/OUTPA TIENT VISIT, EST [facility], [address], [place], [place], [address], [place] tel:[phone] [facility] brain CA (chief complaint)f ibromyalgia 1 (chief complaint)H LP (chief complaint)o steopenia1 (chief complaint) FibromyalgiaMixed hyperlipidemiaMigr vahid w/o aura, not intractable, w/o status migrainosusGeneral ized anxiety disorderTremorMild intermittent asthma, uncomplicatedOther specified disorder of bone density 4 Manoj Floyd [address], [place], [place], [address] , [place]. tel:[phone] Referring Provider: Son Crum [address], [place], [place], [address]. tel:[phone] OFFICE/OUTPA TIENT VISIT, EST [facility], [address] [place], [address], [place] tel:[phone] [facility] COVID1 (chief complaint)j oint pain1 (chief complaint) Viral infectionPain in jointRaised antibody titerOth disrd of bone density and structure, unspecified site Dec- 3 Manoj Floyd [address], [place], [place], [address] , [place]. tel:[phone] Referring Provider: Son Crum [address], [place], [place], [address]. tel:[phone] OFFICE/OUTPA TIENT VISIT, EST [facility], [address], [place], [place], [address], [place] tel:[phone] [facility] Medicine HLP (chief complaint)L ow D (chief complaint)s ick (chief complaint)j oint pain1 (chief complaint) Acute bronchitisPain in jointMixed hyperlipidemiaOth disrd of bone density and structure, unspecified site Sep-0 3 Manoj Navarrete. [address] [facility] [address], [place], [place], [address] , [place]. tel:[phone] Referring Provider: Son Crum [facility] A, [place], [place], [address]. tel:[phone] PREV VISIT, EST, AGE 40-64 [facility], [address], [place], [place], [address], [place] tel:[phone] [facility] physical (chief complaint) Encounter for general adult medical exam w abnormal findingsAcute sinusitisMild intermittent asthma, uncomplicatedMixed hyperlipidemiaGene ralized Anxiety DisorderPalpitatio nsMigraine w/o aura, not intractable, w/o status migrainosus 3 Manoj Navarrete. [address], [place], [place], [address] , [place]. tel:[phone] Referring Provider: Son Crum [address], [place], [place], [address]. tel:[phone] OFFICE/OUTPA TIENT VISIT, EST [facility], [address] [place], [address], [place] tel:[phone] [facility] anxiety1 (chief complaint)p alpitation1 (chief complaint)w eight gain1 (chief complaint) PalpitationsGenera lized anxiety disorderAbnormal weight gain Dec- 2 Manoj Floyd [address], [place], [place], [address] , [place]. tel:[phone] Referring Provider: Landon Aranda, [address], [place], [place], [address]. tel:[phone] OFFICE/OUTPA TIENT VISIT, [facility], [address], [place], [place], [address], [place] tel:[phone] [facility] Medicine scabie1 (chief complaint)s ick1 (chief complaint) ScabiesAcute bronchitis 2 Manoj Navarrete. [address], [place], [place], [address] , [place]. tel:[phone] Referring Provider: Landon Aranda, [address], [place], [place], [address]. tel:[phone] OFFICE/OUTPA TIENT VISIT, [facility], [address], [place], [place], [address], [place] tel:[phone] [facility] itching1 (chief complaint) Scabies 2 Manoj Navarrete. [address], [place], [place], [address] , [place]. tel:[phone] Referring Provider: Landon Aranda, [address], [place], [place], [address]. tel:[phone] OFFICE/OUTPA TIENT VISIT, [facility], [address], [place], [place], [address], [place] tel:[phone] [facility] Medicine sick1 (chief complaint) Acute bronchitis 2 Manoj Navarrete. [address], [place], [address] , [place]. tel:[phone] Referring Provider: Landon Aranda, [address], [place], [place], [address]. tel:[phone] PREV VISIT, EST, AGE 40-64 [facility], [address], [place], [place], [address], [place] tel:[phone] [facility] physical (chief complaint) Encounter for general adult medical exam w abnormal findingsGeneralize d anxiety disorderMigraineTr emorAbnormal weight gainAsthmaAcute pharyngitisHyperli pidemia 2 Manoj Floyd [address], [place], [place], [address] , [place]. tel:[phone] Referring Provider: Son Crum [address], [place], [place], [address]. tel:[phone] OFFICE/OUTPA TIENT VISIT, [facility], [address], [place], [place], [address], [place] tel:[phone] [facility] knee pain1 (chief complaint)a nxiety1 (chief complaint)a llergy1 (chief complaint)H LP (chief complaint) Generalized anxiety disorderHyperlipid emiaPain in unspecified kneeAsthma 1 Manoj Floyd [address], [place], [place], [address] , [place]. tel:[phone] Referring Provider: Son Crum [address], [place], [place], [address]. tel:[phone] OFFICE/OUTPA TIENT VISIT, [facility], [address] [place], [address], [place] tel:[phone] [facility] skin1 (chief complaint)G ERD1 (chief complaint)a nxiety1 (chief complaint)w eight1 (chief complaint) GERD w/o esophagitisGeneral ized anxiety disorderAbnormal weight gainNevus, non-neoplasticActi thalia keratosis 1 Manoj Floyd [address], [place], [place], [address] , [place]. tel:[phone] Referring Provider: Son Crum [address], [place], [place], [address]. tel:[phone] OFFICE/OUTPA TIENT VISIT, [facility], [address], [place], [place], [address], [place] tel:[phone] [facility] Medicine shoulder pain1 (chief complaint)s tomach (chief complaint)s inus1 (chief complaint)a nxiety1 (chief complaint)H LP (chief complaint) HyperlipidemiaAcut e sinusitisGeneraliz ed anxiety disorderGERD w/o esophagitisPain in right shoulder Sean- 1 Manoj Floyd [address], [place], [place], [address] , [place]. tel:[phone] Referring Provider: Son Crum [address], [place], [place], [address]. tel:[phone] PREV VISIT, EST, AGE 40-64 [facility], [address], [place], [place], [address], [place] tel:[phone] [facility] physical (chief complaint) Encounter for general adult medical exam w abnormal findingsAsthmaTrem orGeneralized anxiety disorderHyperlipid emia 1 Manoj Floyd [address], [place], [place], [address] , [place]. tel:[phone] Referring Provider: Son Crum [address], [place], [place], [address]. tel:[phone] OFFICE/OUTPA TIENT VISIT, [facility], [address], [place], [place], [address], [place] tel:[phone] [facility] anxiety1 (chief complaint)w eight gain1 (chief complaint)v iral (chief complaint)c olon polyp1 (chief complaint) Polyp of colonHyperlipidemi aViral infectionAbnormal weight gainGeneralized anxiety disorder Sep-0 0 Manoj Floyd [address], [place], [place], [address] , [place]. tel:[phone] Referring Provider: Son Crum [address], [place], [place], [address]. tel:[phone] OFFICE/OUTPA TIENT VISIT, [facility], [address], [place], [place], [address], [place] tel:[phone] [facility] Medicine cough1 (chief complaint) Acute bronchitisAsthma 0 Manoj Navarrete. [address], [place], [place], [address] , [place]. tel:[phone] Referring Provider: Son Crum [address], [place], [place], [address]. tel:[phone] OFFICE/OUTPA TIENT VISIT, [facility], [address], [place], [place], [address], [place] tel:[phone] [facility] sick (chief complaint) Acute bronchitis 0 Manoj Navarrete. [address], [place], [place], [address] , [place]. [phone] Referring Provider: Son Crum [address], [place], [place], [address]. tel:[phone] OFFICE/OUTPA TIENT VISIT, [facility], [address], [place], [place], [address], [place] tel:[phone] [facility] Medicine cough1 (chief complaint) Acute bronchitisAsthmaVi ral infection 0 Manoj Navarrete. [address], [place], [place], [address] , [place]. tel:[phone] Referring Provider: Son Crum [address], [place], [place], [address]. tel:[phone] PREV VISIT, EST, AGE 40-64 [facility], [address], [place], [place], [address], [place] tel:[phone] [facility] Medicine Physical (chief complaint) Encounter for general adult medical exam w abnormal findingsHyperlipid emiaTremorGenerali zed anxiety disorderPolyp of colon May- 0 Manoj Navarrete. [address], [place], [place], [address] , [place]. [phone] Referring Provider: Son Crum [address], [place], [place], [address]. tel:[phone] OFFICE/OUTPA TIENT VISIT, EST [facility], [address], [place], [place], [address], [place] tel:[phone] [facility] Medicine UTI1 (chief complaint)a nxiety1 (chief complaint)w eight gain1 (chief complaint) Abnormal weight gainGeneralized anxiety disorderUrinary tract infection 9 Manoj Navarrete. [address], [place], [place], [address] , [place]. tel:[phone] Referring Provider: Son Crum [address], [place], [place], [address]. tel:[phone] OFFICE/OUTPA TIENT VISIT, [facility], [address], [place], [place], [address], [place] tel:[phone] [facility] tremor1 (chief complaint)w eight (chief complaint) TremorAbnormal weight gain 9 Manoj Navarrete. [address], [place], [place], [address] , [place]. tel:[phone] Referring Provider: Son Crum [address], [place], [place], [address]. tel:[phone] OFFICE/OUTPA TIENT VISIT, [facility], [address], [place], [place], [address], [place] tel:[phone] [facility] tremor1 (chief complaint)s ick1 (chief complaint)r ight heel (chief complaint) TremorPlantar fascial fibromatosisAcute bronchitis 0 9 Manoj Navarrete. [address], [place], [place], [address] , [place]. tel:[phone] Referring Provider: Son Crum [address], [place], [place], [address]. tel:[phone] PREV VISIT, EST, AGE 40-64 [facility], [address], [place], [place], [address], [place] tel:[phone] [facility] PHysical (chief complaint) TremorHyperlipidem iaGeneralized anxiety disorderAllergic rhinitisEncounter for general adult medical exam w abnormal findings 9 Manoj Navarrete. [address], [place], [place], [address] , [place]. tel:[phone] Referring Provider: Landon Aranda, [address], [place], [place], [address]. tel:[phone] OFFICE/OUTPA TIENT VISIT, EST [facility], [address], [place], [place], [address], [place] tel:[phone] [facility] Medicine HLP (chief complaint)l ow D (chief complaint)w eight gain1 (chief complaint)a nxiety1 (chief complaint)m idback pain1 (chief complaint) HyperlipidemiaAbno rmal weight gainGeneralized Anxiety DisorderLumbagoVit reyes D deficiency, unspecified 8 Manoj Navarrete. [address], [place], [place], [address] , [place]. tel:[phone] Referring Provider: Son Crum [address], [place], [place], [address]. tel:[phone] OFFICE/OUTPA TIENT VISIT, EST [facility], [address], [place], [place], [address], [place] tel:[phone] [facility] HLP (chief complaint)a nxiety1 (chief complaint)s inus allergy1 (chief complaint)w eight1 (chief complaint) Body mass index (BMI) 28.0-28.9, adultAllergic rhinitisHyperlipid emiaGeneralized anxiety disorder 8 Manoj Navarrete. [address], [place], [place], [address] , [place]. tel:[phone] Referring Provider: Son Crum [address], [place], [place], [address]. tel:[phone] PREV VISIT, EST, AGE 40-64 [facility], [address], [place], [place], [address], [place] tel:[phone] [facility] PHysical (chief complaint) Encounter for general adult medical exam w abnormal findingsHyperlipid emiaAllergic rhinitisAbnormal weight gain 8 Manoj Navarrete. [address], [place], [place], [address] , [place]. tel:[phone] Referring Provider: Son Crum [address], [place], [place], [address]. tel:[phone] OFFICE/OUTPA TIENT VISIT, [facility], [address], [place], [place], [address], [place] tel:[phone] [facility] HLP (chief complaint)w eight1 (chief complaint)v itmain D (chief complaint) HyperlipidemiaAbno rmal weight gainVitamin D deficiency, unspecified 7 Manoj Floyd [address], [place], [place], [address] , [place]. tel:[phone] Referring Provider: Son Crum [address], [place], [place], [address]. tel:[phone] OFFICE/OUTPA TIENT VISIT, [facility], [address], [place], [place], [address], [place] tel:[phone] [facility] sinus allergy1 (chief complaint)a nxiety1 (chief complaint)w eight gain1 (chief complaint) Abnormal weight gainGeneralized anxiety disorderAllergic rhinitis 7 Manoj Floyd [address], [place], [place], [address] , [place]. tel:[phone] Referring Provider: Son Crum [address], [place], [place], [address]. tel:[phone] OFFICE/OUTPA TIENT VISIT, [facility], [address], [place], [place], [address], [place] tel:[phone] [facility] Anxiety1 (chief complaint) InsomniaGeneralize d anxiety disorder 6 Manoj [address], [place], [place], [address] , [place]. [phone] Referring Provider: Son Crum, [place], [address]. tel:[phone] PREV VISIT, EST, AGE 40-64 [facility], [address], [place], [place], [address], [place] tel:[phone] [facility] PHysical (chief complaint) Encounter for general adult medical exam w abnormal findingsGeneralize d anxiety disorderAbnormal weight lossDeformity of reconstructed breast Jun-0 6 Manoj Floyd [address], [place], [place], [address] , [place]. tel:[phone] Referring Provider: Son Crum [facility] [address], [place], [place], [address]. tel:[phone] OFFICE/OUTPA TIENT VISIT, EST [facility], [address], [place], [place], [address], [place] tel:[phone] [facility] anxiety1 (chief complaint)a llergy1 (chief complaint)H LP (chief complaint)o verweight1 (chief complaint) Mixed hyperlipidemiaAlle rgic rhinitisAbnormal weight gainGeneralized anxiety disorder Dec-0 5 Manoj [address], [place], [place], [address] , [place]. [phone] Referring Provider: Son Crum [address], [place], [place], [address]. tel:[phone] OFFICE/OUTPA TIENT VISIT, EST [facility], [address], [place], [place], [address], [place] tel:[phone] [facility] weight loss (chief complaint)H LP (chief complaint)d epression (chief complaint) Other and unspecified hyperlipidemiaAbno rmal weight gainMajor depressive disorder, single episode, mild degree Sean-0 5 Manoj Floyd [address], [place], [place], [address] , [place]. [phone] Referring Provider: Son Crum [address], [place], [place], [address]. tel:[phone] OFFICE/OUTPA TIENT VISIT, EST [facility], [address], [place], [address], [place] [phone] [facility] Medicine weight gain (chief complaint)a nxiety (chief complaint) Dietary surveillance and counselingAbnormal weight gainDepressionBrea st screening, unspecified Jun- 5 Manoj Navarrete. [address], [place], [place], [address] , [place]. [phone] Referring Provider: Son Crum [address], [place], [place], [address]. tel:[phone] PREV VISIT, EST, AGE 40-64 [facility], [address], [place], [place], [address], [place] [phone] [facility] Medicine Physical (chief complaint) Dietary surveillance and counselingRoutine Medical ExamAllergic rhinitis, cause unspecifiedOther and unspecified hyperlipidemiaUnsp ecified vitamin d deficiencyRoutine Medical Exam 5 Manoj Navarrete. [address], [place], [place], [address] , [place]. [phone] Referring Provider: Son Crum [address], [place], [place], [address]. tel:[phone] OFFICE/OUTPA TIENT VISIT, EST [facility], [address], [place], [place], [address], [place] [phone] [facility] Medicine shoulder pain (chief complaint)a bscess (chief complaint) Pain in joint involving shoulder regionCervicalgiaC ellulitis and abscess of buttockDietary surveillance and counseling 4 Manoj Navarrete. [address], [place], [place], [address] , [place]. tel:[phone] Referring Provider: Son Crum [address], [place], [place], [address]. tel:[phone] OFFICE/OUTPA TIENT VISIT, EST [facility], [address], [place], [place], [address], [place] tel:[phone] [facility] abscess (chief complaint) Cellulitis and abscess of buttock Sean-3 0 4 Manoj Navarrete. [address], [place], [place], [address] , [place]. tel:[phone] Referring Provider: Landon Aranda, [address], [place], [place], [address]. tel:[phone] OFFICE/OUTPA TIENT VISIT, EST [place] [facility], [address], [place], [place], [id number], [place] tel:[phone] [facility] bronchitis (chief complaint) Dietary surveillance and counselingBronchit is, Acute 4 Manoj Navarrete. [address], [place], [place], [id number] , [place]. tel:[phone] Referring Provider: Landon Aranda [address], [place], [place], [id number]. tel:[phone] OFFICE/OUTPA TIENT VISIT, EST [facility], [address], [place], [place], [address], [place] tel:[phone] [facility] neck pain (chief complaint) CervicalgiaDietary surveillance and counseling 4 Manoj Navarrete. [address], [place], [place], [address] , [place]. tel:[phone] Referring Provider: Landon Aranda [address], [place], [place], [address]. tel:[phone] PREV VISIT, EST, AGE 40-64 [facility], [address], [place], [place], [address], [place] tel:[phone] [facility] Physical (chief complaint) Dietary surveillance and counselingRoutine Medical ExamAsthmaCervical giaAllergic rhinitis, cause unspecifiedRoutine Medical Exam 4 Manoj Navarrete. [address], [place], [place], [id number] , . [phone] Referring Provider: Landon Aranda, [address], [place], [place], [address]. tel:[phone] OFFICE/OUTPA TIENT VISIT, [facility], [address], [place], [place], [address], [place] tel:[phone] [facility] sinus problem (chief complaint)m igrane (chief complaint)D epression (chief complaint)A llergy (chief complaint) Dietary surveillance and counselingSinusiti s, AcuteHeadacheAller gic rhinitis, cause unspecifiedMajor depressive affective disorder, single episode, mild degree 3 Manoj Navarrete. [address], [place], [place], [address] , . [phone] Family History Family Member Type Diagnosis Age At Onset Father Problem (finding) brain aneurysm Mother Problem (finding) Hyperlipidemia Payers Payer name Insurance type Covered green party ID Authoriza tikristi(s) [employer] CI [id number] Social History Type Description Quantity Date Captured [...] [Dupuytren]) ordered Referral Referred To: Urvashi Harris [address] [place] [address], [phone] Ordered: Referrals: Allopathic & Osteopathic Physicians : Plastic Surgery. Urvashi Harris. Evaluate and treat ordered Referral Ordered: Neurology (related to Migraine w/o aura, intractable, without status migrainosus) ordered Referral Ordered: Neurology (related to Migraine w/o aura, intractable, without status migrainosus) ordered Referral Referred To: Martha Crespo MD [address] [facility]
[address] [place], [place], [id number] Ordered: Referrals: Martha Crespo MD. Evaluate and treat ordered Referral Referred To: Agustin Gutierrez [address] [place], [phone] Ordered: Referrals: Agustin Gutierrez. Evaluate and treat ordered Referral Ordered: ECG MONITOR/RECORD, 24 HRS ordered Referral Ordered: Arsen Dickson -Allopathic & Osteopathic Physicians : Family Medicine (related to Pain in unspecified knee) ordered Referral Ordered: KNEE XRAY TWO-VIEW Bilateral ordered Referral Referred To: Arsen Dickson [address] [facility]
[address] [place], [place], [id number] Ordered: Referrals: Allopathic & Osteopathic Physicians : Family Medicine. Arsen Dikcson. Evaluate and treat ordered Referral Ordered: David Saleem -Allopathic & Osteopathic Physicians : Surgery (related to Nevus, non-neoplastic) ordered Referral Referred To: David Saleem [address] [place], [place], [phone] Ordered: Referrals: Allopathic & Osteopathic Physicians : Surgery. David Saleem. Evaluate and treat ordered Referral Ordered: Molina Neves -Allopathic & Osteopathic Physicians : Orthopaedic Surgery (related to Pain in right shoulder) ordered Referral Referred To: Molina Neves [address] [place], [place], [phone] Ordered: Referrals: Allopathic & Osteopathic Physicians : Orthopaedic Surgery. Molina Neves. Evaluate and treat ordered Referral Referred To: Marcia NAYLOR, Melvin Flores [facility] [address]
[place] [address] [place] [address], [phone] Ordered: Referrals: Marcia NAYLOR, Melvin Flores. Evaluate and treat ordered Referral Ordered: COLONOSCOPY AND BIOPSY ordered Referral Ordered: Surgery (related to Encounter for general adult medical exam w abnormal findings) ordered Referral Ordered: Referrals: Surgery. Evaluate and treat ordered Referral Ordered: DELIA WATKINS -Podiatric Medicine & Surgery Service Providers : Subway Con[employer] (related to Plantar fascial fibromatosis) ordered Referral Ordered: Neurology (related to Tremor) ordered Referral Ordered: MOTOR NERVE CONDUCTION TEST ordered Referral Referred To: DELIA WATKINS [address] [facility],[address] [place], [place], [phone] Ordered: Referrals: Podiatric Medicine & Surgery Service Providers : [employer]way Con[employer]. DELIA WATKINS. Evaluate and treat ordered Referral [...] two migraine last week. Pt sees neurology anxiety1 pt has chronic a nxiety and depression Pt takes cymbalta and abilify and doing ok. Pt denies any suicidal or homicidal thought Pt has not been having crying spells. Her mood is much better . migraine1 Pt has chronic m igraine. Pt sees neurology Pt is on aimovig and topamax and her headache is improving and she take ubrelvy PRn only. Pt states that insurance does not cover topamax 300 mg BID finger1 Pt c/o chronic f lexion of left 5th finger with some harden nodule on left palm. tremor1 Pt has chronic t remor with unknown etiology and dystonia Pt is on primidone and also mirapex which is helping both tremor and dystonia1 anxiety1 Pt has chronic a nxiety and depression Pt takes cymbalta and she started abilify and she is feeling much better in terms of her mood Pt denies any suicidal or homicidal thought .Pt still has crying spells. Pt overall is feeling better now. tremor1 Pt has chronic t remor. Pt is on primidone and she started mirapex last month and her tremor is slightly improving .Pt does see movement disorder doctor migraine1 Pt has chronic m igraine headache. Pt is seeing neurology and she is on ubrelvy and aimovig and she received botox which has been helping her headache Pt needs percocet refilled physical Pt needs annual physical. Pt has [...] Pt is seeing movement disorder specialist at [facility]. Pt also has cavernoma and she is seeing neurosurgeon at [facility] as well. Pt needs to see general neurology but [facility] does not have any availability until next [...] abnormality . Pt was again refused by [facility] after my referral joint pain1 Pt has [...] from neurology yet.. Pt also failed imitrex headache1 Pt c/o severe co nstant throbbing bilateral temporal headache with photophobia and nausea for several months Pt had MRI of brain done which showed right caudate cavernoma. 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 Pt sees movement specialist and she does not have any parkinson diagnosis at this point. Pt also has gait abnormality . HLP Pt had lab done by cardiology [...] she is working on weight bearing exercise COVID1 Pt traveled to [facility] last week and she got sick since [...] Pt denies any fever. joint pain1 Pt has diffuse j oint pain. Pt had connective tissue done which showed mildly elevated SERA. Pt denies any joint deformity sick Pt c/o productiv e cough with green phlegm with sinus congestion and drainage and mild sore throat x 4 days Pt denies any fever ,chill. Pt feels mild sob as well Pt has been using her albuterol due to cough or sob joint pain1 Pt c/o bilateral shoulder, both hand, both wrist, both hip and both knee pain for a while Pt denies any injury. Pt denies any redness or warmth or swelling HLP Pt has HLP Pt ta cornells lipitor Pt denies any myalgia her lipid profile is ok Her TG is borderline high Low D Pt has low D, Pt has not done bone density yet by [facility] physical Pt needs annual physical pt c/o [...] weeks and her GI symptoms completely resolved skin1 Pt has several s pots on her body which is getting bigger and is raised. Pt wants skin check by dermatology. Pt denies any scab and bleeding. Pt has fair skin with skin damage from sun anxiety Pt has chronic a nxiety Pt denies any depression or any suicidal or homicidal thought Pt denies any crying spells weight1 Pt gained some w eight Pt wants to try phentermine again. Pt tolerated phentermine well in the past without any side effects . shoulder pain1 Pt has severe ri ght [...] any weakness. Pt denies any neck pain anxiety1 Pt has chronic a nxiety. PT [...] was sent home yesterday for self quarantine colon polyp1 Pt had colonosco py done 2014 which showed polyp. Pt was told to repeat colonoscopy 2019. Pt has not done so yet. PT denies any lower GI issue cough1 Pt has persisten t dry cough [...] essential tremor Pt just saw neurologist at [facility] and she was started on primidone and [...] made appointment with movement disorder doctor at [facility] but not until june of next year. Pt only drinks alcohol socially. Pt has not been able to schedule for NCS yet. pt does have mild neck pain chronically but MRi benign. Pt denies any radiculopathy tremor1 Pt has rather se arsh resting [...] her neck PT denies any right radiculopathy sick1 Pt c/o sinus con gestion, sinus pain, left ear pain, purulent sinus drainage, productive coughing and sore throat for 3-4 days Pt denies any fever Pt denies any sick contact Pt denies any recent travel. Pt notices mild wheezing last night Pt denies any calf pain or chest pain. Pt denies any headache right heel Pt c/o right fatmata l pain for 9 months without injury Pt notices numbness around right heel. Pt denies any involvement rest of foot. pt notices worsening pain in the morning. Pt denies any calf pain PHysical Pt needs annual physical. Pt has [...] Pt denies any loss of bladder control HLP Pt has HLP. Pt t akes lipitor . Her lipid profile is better but still high . pt is not on any diet low D Pt has low D. pt denies any h/o fracture weight gain1 Pt has been gain ing weight. Pt failed phentermine. Pt is not very physically active anxiety1 Pt has anxiety a nd depression Pt takes xanax PRn. Pt denies any suicidal or homicidal thought Pt has crying spells and hot flushes. Pt has a lot of stress. Pt does not want to take SSRis Pt is seeing her pump runner soon for menopausal soon. midback pain1 Pt has been havi ng midback and neck pain for several months Pt feels a lot of stress around her muscle around her neck and back. Pt denies any injury Pt denies any radiculopathy HLP Pt has HLP. Pt t akes lipitor. Pt has not done lab yet. Pt denies any myalgia anxiety1 Pt has chronic a nxiety pt denies any depression or any suicidal thought. Pt denies any crying spells. Pt does not want to take SSRIs sinus allergy1 Pt wants to try xyzal again. pt states that juan m did not work. pt has sinus congestion and also sneezing. Pt does not want flonase weight1 Pt lost 7 pounds with phentermine. pt has not taken phentermine for one month Pt wants to get back on it Pt states that she did not really exercise while on phentermine last time. PHysical Pt needs annual physical. Pt has [...] taken any phentermine for over one year HLP Pt has mildly pe rsistently high cholesterol. Pt states that she like to eat pizza and carb. Pt denies any myalgia weight1 Pt has been taki ng phentermine and she denies any chest pain or headache pt has been trying diet and exercise. vitmain D Pt has low vitam in D. sinus allergy1 Pt has sinus all ergy. Pt takes xyzal and singulair. Pt doing ok. Pt denies any sinus pain or pressure anxiety1 Pt has chronic a nxiety and depression. Pt is going through divorce. Pt has been having some crying spells. Pt takes lexapro and xanax PRN. Pt states that overall she is feeling better and she wants to lower the dose of lexapro weight gain1 Pt has gained so me weight and she has been stress eating. Pt wants to try phentermine again. Pt did well with phentermine. Pt denies any chest pain or headache. Anxiety1 Pt has chronic a nxiety and [...] management Related to Abn ormal weight gain Increase physical activity Relat ed to Tremor Weight management Related to Ten mor Special diet education Related t o Body mass index (BMI) 30.0-30.9, adult Weight management Related to Ten mor Special diet education Related t o Body mass index (BMI) 30.0-30.9, adult Increase physical activity Relat ed to Tremor Special diet education Related t o Body mass index (BMI) 30.0-30.9, adult Weight management Related to Ten mor Increase physical activity Relat ed to Tremor Special diet education Related t o Body mass index (BMI) 29.0-29.9, adult Increase activity. Related to Hy perlipidemia Follow a low sodium diet. Relate d to Hyperlipidemia Weight management Related to All ergic rhinitis [...] adult medical exam w abnormal findings Prescribed Diet Educ ation/Lifestyle Education Regarding Diet Related to Dietary Surveillance and Counseling Prescribed Activity and Exercise Education Related to Dietary Surveillance and Counseling Physical [...] Mental Status Date Cognitive Assessment Orientation - [place] ed to time, place, person, situation.
--- NOTE | 2024-12-27 | S_PTH ---
PATIENT: Ivis Szymanski LOC: ANHLAB #:[id number] AGE/SX: 59/F ROOM: RE12/27/[address]: Urvashi Harris MD : 1965 BED: DIS: 12/27/2024 SPEC #: [id number] RECD: 12/28/24 09:14 STATUS: HUGO REQ #: [id number] NELLA: 12/27/24 00:[address]: Urvashi Harris DEPT: [facility] Surgical RECD BY: My Victor ENTERED: 12/28/24 09:14 SP TYPE: Surgical OTHR DR: aLndon Aranda MD Tissues: A - Soft Tissue Procedures: Hematoxylin and Eosin Stain Gross and Microscopic Level 3
--- OUTSIDE RECORDS SUMMARY | 2024-12-28 08:43 | XMS_ITS | Clinical Summary ---
Author Organization [facility] Address Formerly [facility] [place] [address] Care Team Providers Care Diesel Inspector Name Role Phone Landon Aranda MD Primary Care Provider [phone] Allergies Active Allergy Reactions Criticality Noted Date [...] (right) Assessment & Plan (06/19/2024 11:30 AM PUBLIC HEALTH SERVICE OFFICER): She has late adulthood onset, progressive, persistent, [...] (right) Assessment & Plan (03/20/2024 9:39 AM PUBLIC HEALTH SERVICE OFFICER): She has late adulthood onset, progressive, persistent, [...] mentions having met with her PCP Dr. Aranad in the interim she wanted to let [...] discontent regarding her recent ROV with our COST ACCOUNTING CLERK as she felt rushed, I told her that I have reviewed that office visit note and plan with COST ACCOUNTING CLERK and it was a thorough evaluation. She was okay with continuing to see the same COST ACCOUNTING CLERK for now. Recommendations: Botox injected as detailed below. Botox administered: 180 Units (amount wasted: 20 Units) injected into the following muscles using a 1 ml dilution: 40U Levator Scapulae (left) 20U Splenius Capitis (left) 40U Sternocleidomastoid (right) 60U Trapezius (left) 20U Trapezius (right) Assessment & Plan (05/10/2023 11:00 AM PUBLIC HEALTH SERVICE OFFICER): She has late adulthood onset, progressive, persistent, [...] services. Assessment & Plan (05/11/2024 5:33 PM PUBLIC HEALTH SERVICE OFFICER): She has a longstanding history of kinetic [...] canal Assessment & Plan (04/08/2023 8:08 AM PUBLIC HEALTH SERVICE OFFICER): She has a longstanding history of kinetic [...] services. Assessment & Plan (04/23/2022 7:32 AM PUBLIC HEALTH SERVICE OFFICER): She has a longstanding history of kinetic [...] exercises. Assessment & Plan (04/22/2021 4:58 PM PUBLIC HEALTH SERVICE OFFICER): She has a longstanding history of kinetic [...] I was located in my office at [address] [place] [address] and the patient was located at her home in [place]. The session started at 13:06 and [...] a telephone or video visit during the [address] emergency. After being given an opportunity [...] exercises. Assessment & Plan (05/11/2019 1:58 PM PUBLIC HEALTH SERVICE OFFICER): She has a longstanding history of kinetic [...] mild excessive daytime sleepiness as reflected by Ingomar of 12, we discussed that this needs [...] Department Care Team Description 12/21/2024 Orders Only [facility] Medicine Movement Disorders [address] [facility] [place] Medicine 6th [place] [address] [place] [address] Azael Richard MD PhD Cervical dystonia (Primary Dx) 12/18/2024 9:15 AM CDT [facility] visit [facility] [address] [facility] [place] Medicine 6th [place] [address] [place] [address] Azael Richard MD PhD Cervical dystonia (Primary Dx) 12/04/2024 3:00 PM CDT Office Visit [facility] Movement Disorders [address] [facility] 7th [place] [address] Azael Richard MD PhD Essential tremor (Primary [...] on file Legal Sex Female 3:20 AM PUBLIC HEALTH SERVICE OFFICER Gender Identity Female 01/07/2021 4:33 PM CDT [...] (2 - Td or Tdap) 09/02/202508/2015 Insurance [facility] [employer] [place] [address] IDPA Care Teams Diesel Inspector Relationship Specialty Start Date End Date Landon Aranda MD PCP - General 02/22/14
--- OUTSIDE RECORDS SUMMARY | 2024-12-28 08:43 | XMS_ITS | Clinical Summary ---
Author Organization [facility] Address [address] [facility] [place] [address] Care Team Providers Care Dyer And Washer Name Role Phone Landon Aranda MD Primary Care Provider [phone] Source Comments [facility],non-owned Affiliates and Associated Physician Practices is amultiple site organization consisting of ambulatory clinics and hospital sitesin [place] and [place]. This disclosure is being madepursuant to the Care Everywhere program and may not contain all information available regarding this patient. Last updated 18.[facility] Allergies Active Allergy Reactions Criticality Noted Date [...] Active vitamin D, ergocalciferol, (Drisdol) 1.25 MG (54281 UT) capsule Take 1 (one) capsule by [...] I was located in my office at [address] [place] [address] and the patient was located at her home in [place]. The session started at 13:06 and ended [...] a telephone or video visit during the [facility] [place] [address] emergency. After being given an opportunity to [...] - 09/28/2024 11:59 PM CDT Hospital Encounter [facility] DIAGNOSTIC [facility] [address] [address] [facility] [place] [address] Ananya Davis PA-C Discharge Disposition: Home or Self Care 09/28/2024 10:45 AM CDT Office Visit [facility] [address] [place] [address] Ananya Davis PA-C Primary osteoarthritis of left knee (Primary Dx); Primary osteoarthritis of right knee; Chronic pain of both knees 09/28/2024 Orders Only [facility] [address] [place] [phone] Ananya Davis PA-C Pain in both [...] Office Visit [facility] [address] [place] [phone] Ananya Davis PA-C [address] [place] [id number] Health Maintenance Due Date Last Done Comments [...] Procedure Name Priority Date/Time Associated Diagnosis Comments ME DRAIN/INJECT LARGE JOINT/BURSA Routine 09/28/2024 11:14 AM CDT Primary osteoarthritis of left knee Primary osteoarthritis of right knee Chronic pain of both knees ME DRAIN/INJECT LARGE JOINT/BURSA Routine 09/28/2024 11:14 AM CDT Primary osteoarthritis of left knee Primary osteoarthritis of right knee Chronic pain of both knees XR KNEE RIGHT 4VW OR MORE Routine 09/28/2024 11:10 AM CDT Pain in both knees, unspecified chronicity XR KNEE LEFT 4VW OR MORE Routine 09/28/2024 11:10 AM CDT Pain in both knees, unspecified chronicity from Last 3 Months Results * ME DRAIN/INJECT LARGE JOINT/BURSA (09/28/2024 11:14 AM CDT) [...] PROCEDURE/MINOR SURGICAL OR DERABLES Final Result * ME DRAIN/INJECT LARGE JOINT/BURSA (09/28/2024 11:14 AM CDT) [...] knee. Report dictated by Chon Chen MD (residential direct support professional). Aspen Segura MD have personally reviewed and interpreted this examination/study. > Interpreting Provider: Aspen Conroy MD on 09/28/2024 2:28 PM Narrative 09/28/2024 2:28 PM CDT EXAMINATION: XR KNEE RIGHT 4VW OR MORE DATE/TIME OF EXAM: 09/28/2024 11:12 AM, LOCATION [facility] HISTORY: M25.561: Pain in both knees, unspecified [...] DATE/TIME OF EXAM: 09/28/2024 11:12 AM, LOCATION [facility] HISTORY: M25.561: Pain in both knees, unspecified [...] knee. Report dictated by Chon Chen MD (residential direct support professional). Aspen Segura MD have personally reviewed and [...] knee. Report dictated by Chon Chen MD (residential direct support professional). I, Aspen Conroy MD have personally reviewed and interpreted this examination/study. > Interpreting Provider: Aspen Conroy MD on 09/28/2024 2:29 PM Narrative 09/28/2024 2:29 PM CDT EXAMINATION: XR KNEE LEFT 4VW OR MORE DATE/TIME OF EXAM: 09/28/2024 11:12 AM, LOCATION [facility] HISTORY: M25.561: Pain in both knees, unspecified [...] DATE/TIME OF EXAM: 09/28/2024 11:12 AM, LOCATION [facility] HISTORY: M25.561: Pain in both knees, unspecified [...] knee. Report dictated by Chon Chen MD (residential direct support professional). I, Aspen Conroy MD have personally reviewed and interpreted this examination/study. > Interpreting Provider: Aspen Conroy MD on 09/28/2024 2:29 PM us Ananya Davis PA-C DIAGNOSTIC IMAGING ORDERABL ES Final Result from Last 3 Months Insurance [facility] Address: [id number] [place] [address] AETNA MEDICARE ADV Care Teams Dyer And Washer Relationship Specialty Start Date End Date Landon Aranda MD PCP - General 10/10/20
--- OUTSIDE RECORDS SUMMARY | 2024-12-28 08:43 | XMS_ITS | Patient Health Record ---
Author Organization [facility] Address [address] [facility] [address] [place] [address] Care Team Providers Care Roller Hand Name Role Phone Manoj NAYLOR, Landon Primary Care Provider Martha Negron Unavailable [phone] Allergies Allergen (clinical drug ingredient) Drug/Non Drug [...] 2 tablets prn oral *Pick strength-form from [employer] for eRX* Active Atorvastatin Calcium 40 MG 1 tablet Orally Once a day; Duration: 30 day(s) Active Albuterol Sulfate HFA 108 (90 Base) MCG/ACT prn Inhalation Acti ve Montelukast Sodium 10 MG 1 tablet Orally Once a day; Duration: 30 day(s) Active Primidone 50 MG take 4 tabs daily Oral Active Vitamin D (Ergocalciferol) 1.25 MG (06274 UT) take 1 capsule weekly Oral Active Metoprolol Succinate ER 25 MG take 1 tablet (25 mg) by oral route once daily Oral 1 Active Gabapentin 600 MG 1 tablet Orally 3 times a day; Duration: 30 days Active Topiramate 200 mg take 1.5mg daily oral *Pick strength-form from [employer] for eRX* Active ALPRAZolam 0.5 MG take 1 tablet daily as needed Oral Active DULoxetine HCl 60 MG take 1 capsule (60 mg) by oral route once daily Oral 1 Active Xyzal - take 1 tablet at bedtime oral *Reorder from [employer] for eRx and Interaction Alerts* Active Problems Problem Type SNOMED Code ICD Code Onset Dates Problem Status W/U Status Risk Notes Problem Fibromyalgia (235990162) Fibromyalgia (M79.7) Active confirmed Problem Osteoarthritis, unspecified [...] 024 SSA/SSB ANTIBODY (SJOGREN'S) 12/16/2023 TAN / TOOL AND DIE MAKER ANTIBODY 12/16/2023 DNA (DS) ANTIBODY 12/16/2023 SERA SCREEN/REFLEX TITER/PATTERN 12/16/19 24 Insurance Providers Payer Name Payer Address Payer Phone Subscriber Number Group Number Insured Name Patient Relationship to Insured Coverage Start Date Coverage End Date [place] [address] [place] [address] [id number] Ivis Szymanski Self - patient is the insured Medical (General) History Medical History History ICD Code SERA positive; Asthma; Depression; Hyperlipidemia; Vitamin D deficiency; Parkinson's disease Surgical History Surgery Date(Month/Year) breast implant removal; 2023-01-21
--- OUTSIDE RECORDS SUMMARY | 2024-12-28 08:43 | XMS_ITS | Clinical Summary ---
Author Organization [facility] Address [address] [place] [address] Phone Care Team Providers Care Web Content Developer Name Role Phone Landon Aranda MD Primary Care Provider [phone] Allergies Active Allergy Reactions Criticality Noted Date [...] on file Legal Sex Female 2:44 PM STORAGE AND BACKUP ADMINISTRATOR Gender Identity Not on file Sexual Orientation Not on file Last Filed Vital Signs Vital Sign Reading Time Taken Comments Blood Pressure 135/93 06/02/2020 9:22 AM STORAGE AND BACKUP ADMINISTRATOR Pulse 88 11/14/2019 4:20 PM CDT Temperature 36.7 C (98 F) 11/14/2019 2:14 PM CDT Respiratory Rate 19 11/14/2019 4:20 PM CDT Oxygen Saturation 98% 11/14/2019 4:20 PM CDT Inhaled Oxygen Concentration - - Weight 77.1 kg (170 lb) 06/02/2020 9:22 AM STORAGE AND BACKUP ADMINISTRATOR Height 165.1 cm (5' 5) 06/02/2020 9:22 AM STORAGE AND BACKUP ADMINISTRATOR Body Mass Index 28.29 06/02/2020 9:22 AM STORAGE AND BACKUP ADMINISTRATOR Plan of Treatment Health Maintenance Due Date [...] (#1) 2024 Medical Devices Explanted Type Area Anode Adjuster Device Identifier Shelf Expiration Date Model / Serial / Lot Breast Implants Explanted:Qty: 1 on 11/14/2019 by Davin Bowden MD at [facility] Mammary Bilateral: Breast Description:Dr Bowden exp lanted bilateral implants. NO IMPLANT INFORMATION AVAILABLE Insurance [employer] (INTERNAL) [facility] [employer] RX [employer] Express Advance Directives For more information, please contact: [phone] * Full Code (Latest Code Status on File) Date Activated Date Inactivated Comments 11/14/2019 7:58 AM 11/14/2019 6:43 PM Care Teams Web Content Developer Relationship Specialty Start Date End Date Landon Aranda MD [address] [place] [address] PCP - General Family Practice 07/05/19
== END 2024-12-27 08:36 | disposition home or self-care (01) ==
LOC: ANHLAB 12-28 08:36
PROVIDERS: PCP Emergency Medicine; Visit Provider Plastic Surgery
DX: M72.0 Palmar fascial fibromatosis [Dupuytren] (principal)
CPT/HCPCS: 88304